=== PATIENT | male | born 1950 | race Caucasian/White ===

== ENCOUNTER 2024-09-01 17:46 | Inpatient (IN) | payer MEDICARE, MEDICAID, SELFPAY ==
[2024-09-01 17:50] VITALS: PULSE 102; RESP 20; O2SAT 96; BMI 13.5
[2024-09-01 17:55] VITALS: BP 100/64; PULSE 100; RESP 20; TEMP 37.3; O2SAT 98
--- NOTE | 2024-09-01 19:32 | EKG_ITS ---
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
--- NOTE | 2024-09-01 19:32 | XR_ITS ---
Examination: CT brain head without contrast. 2-D sagittal coronal reconstructions Date and time of exam:September 01 2024 at 07 hours Indications: Patient fell with injury to head, head pain CTDI: vol (mGy):51 DLP: (mGycm):1060 Technique: Multiple CT axial sections of the brain have been obtained, 5 mm slice thickness. Contrast has not been administered. 2-D sagittal, coronal reconstructions have been obtained Low dose protocols were performed. One or more of the following dose reduction techniques were used; automated exposure control, adjustment of the mA and/or KV according to patient size, use of iterative reconstruction technique. Findings: No significant ventricular enlargement. Intra-axial or extra-axial hemorrhage density is not seen. No mass effect or midline shift Basal cisterns are not remarkable. Fourth ventricle is midline. Cranial vault intact. Impression: Negative for acute hemorrhage, mass effect or midline shift
--- NOTE | 2024-09-01 19:32 | XR_ITS ---
Examination: AP chest single view Technique one AP portable semiupright chest single view Exam date and time: September 01, 2024 at 1942 hrs. Comparison 05/15/2022 Indications: Sepsis protocol. Findings: Diffuse significant right lung pneumonia Normal heart size Left lung clear Impression: Diffuse significant right lung pneumonia
--- NOTE | 2024-09-01 19:33 | EDNOTE_ITS ---
ED General RME/HPI General Chief complaint: Altered Mental Status Stated complaint: AMS Time Seen by Provider: 09/01/24 19:22 Arrival date/time: 09/01/24 17:46 RME / HPI RME / HPI narrative: 73-year-old male patient with significant history of lifelong developmental delay, chronic debility, wheelchair-bound, was brought in by EMS for evaluation regarding worsening mentation. According to the cousin who is the caregiver of the patient, patient was noted to be refusing to eat even swallow water since yesterday. Patient was also noted to be less responsive and active. Not been ambulatory for more than several months. And now less verbal also. Patient is alert, look at you, and blink when you asked. Related Data Home Medications ?Medication ?Instructions ?Recorded ?Confirmed clonazepam 2 mg tablet 2 mg PO BID PRN FOR SEVERE A NXIETY 07/18/21 01/13/22 levothyroxine 25 mcg tablet 25 mcg PO DAILY 07/18/21 0 01/13/22 risperidone 3 mg tablet 6 mg PO HS 07/18/21 01/13/22 Previous Rx's ?Medication ?Instructions ?Recorded levetiracetam 500 mg tablet 500 mg PO BID #60 tabs (Roweepra) Allergies Allergy/AdvReac Type Severity Reaction Status Date / Time lithium Allergy Verified 01/13/22 19:26 Review of Systems Review of Systems Narrative Review of Systems: Review of system reviewed and within normal limits except mentioned in HPI ED Exam Narrative Physical exam: VITAL SIGNS: Reviewed. GENERAL APPEARANCE: Alert with eyes open, nonverbal, does not follows commands, no acute distress, cachectic, almost skin and bone HEAD AND FACE: Non-traumatic. ENT: PERRL, pink conjunctivitis, eyelid no trauma, Mucous membrane moist. NECK: Supple, nontender, no nuchal rigidity. CHEST: No tenderness, no crepitus, no paradoxical movement, no retractions. LUNGS: Clear, well ventilated, symmetric, no rales, no wheezing, no ronchi, no stridor, good breath sounds bilaterally. HEART: Regular rate, regular rhythm, no murmur, no gallops. ABDOMEN: Soft, positive bowel sounds, nondistended, no guarding, nontender, no rebound, no masses, RECTAL: Deferred. GENITAL: Deferred. NEUROLOGICAL: Gross motor function intact sensory function intact, Appropriate for age. MUSCULOSKELETAL: low back nontender, limited range of motion. EXTREMITIES: Nontender, limited range of motion. SKIN: Color pink, dry, no rash, no lacerations, no abrasions, no contusions. LYMPHATICS: Deferred. Course Quality Measures none Orders Category Date Time Status Admit to Inpatient Status Routine Admission 09/01/24 22:50 Active Patient Condition Routine Admission 09/01/24 22:50 Ordered Bedside Blood Glucose Q6HR Care 09/01/24 22:54 Active Converter Operator STAT Care 09/01/24 19:32 Active Continuous Pulse Oximetry STAT Care 09/01/24 19:32 Completed EKG (ED ONLY) *Do not use* NOW Care 09/01/24 19:32 Completed Jin [Urinary Catheter] QS Care 09/01/24 21:04 Active Jin to [place] Routine Care 09/01/24 19:33 Ordered In and Out Catheter X1PRN Care 09/01/24 19:32 Active Insert IV NOW Care 09/01/24 19:32 Active NPO NOW Care 09/01/24 22:51 Active NPO STAT Care 09/01/24 19:32 Active Notify provider NEEDED Care 09/01/24 22:50 Active Nurse Swallow Screen X1 Care 09/01/24 22:48 Active Strict Intake and Output Routine Care 09/01/24 19:32 Ordered Swallow Evaluation NEEDED Care 09/01/24 22:48 Active Wound Care NOW Care 09/01/24 22:48 Active Referral Registered Dietitian Routine Cons 09/01/24 22:53 Active Referral Speech Therapy Routine Cons 09/01/24 22:53 Active Diet NPO (NOW) Diet 09/01/24 22:[address] abdomen pelvis wo con Routine Exams 09/01/24 22:[address] head/brain wo con Stat Exams 09/01/24 19:32 Completed EKG (ED Only) Stat Exams 09/01/24 19:32 Draft XR chest 1V SEPSIS PROTOCOL Stat Exams 09/01/24 19:32 Completed A1C [Glycohemoglobin w (eAG)] AM DRAW Lab 09/02/24 05:00 Ordered B-Type Natriuretic Peptide Stat Lab 09/01/24 20:33 Completed Blood Culture (Lab) Stat Lab 09/01/24 19:52 Received CBC AM DRAW Lab 09/02/24 05:00 Ordered CBC AM DRAW Lab 09/03/24 05:00 Ordered CBC AM DRAW Lab 09/04/24 05:00 Ordered CBC AM DRAW Lab 09/05/24 05:00 Ordered CBC Stat Lab 09/01/24 20:33 Completed CMP [Comprehensive Metabolic Panel] AM DRAW Lab 09/02/24 05:00 Ordered CMP [Comprehensive Metabolic Panel] AM DRAW Lab 09/03/24 05:00 Ordered CMP [Comprehensive Metabolic Panel] AM DRAW Lab 09/04/24 05:00 Ordered CMP [Comprehensive Metabolic Panel] AM DRAW Lab 09/05/24 05:00 Ordered CRP [C-Reactive Protein] AM DRAW Lab 09/02/24 05:00 Ordered Comprehensive Metabolic Panel Stat Lab 09/01/24 20:33 Completed ESR [Sed Rate (ESR)] AM DRAW Lab 09/02/24 05:00 Ordered Free T4 (Free Thyroxine) AM DRAW Lab 09/02/24 05:00 Ordered LDH (Lactate Dehydrogenase) Stat Lab 09/01/24 20:33 Completed Lactate (Lactic Acid) Stat Lab 09/01/24 19:52 Completed Lipase Stat Lab 09/01/24 20:33 Completed [place] Stat Lab 09/01/24 22:54 Ordered MRSA Nasal Screen Stat Lab 09/01/24 22:50 Ordered Magnesium AM DRAW Lab 09/02/24 05:00 Ordered Magnesium AM DRAW Lab 09/03/24 05:00 Ordered Magnesium AM DRAW Lab 09/04/24 05:00 Ordered Magnesium AM DRAW Lab 09/05/24 05:00 Ordered Magnesium Stat Lab 09/01/24 20:33 Completed Partial Thromboplastin Time Stat Lab 09/01/24 19:52 Completed Phosphorous AM DRAW Lab 09/02/24 05:00 Ordered Phosphorous AM DRAW Lab 09/03/24 05:00 Ordered Phosphorous AM DRAW Lab 09/04/24 05:00 Ordered Phosphorous AM DRAW Lab 09/05/24 05:00 Ordered Phosphorous Stat Lab 09/01/24 20:33 Completed Procalcitonin Stat Lab 09/01/24 20:33 Completed Prothrombin Time with INR Stat Lab 09/01/24 19:52 Completed Sodium Q4H Lab 09/01/24 22:50 Ordered Sodium Q4H Lab 09/02/24 02:50 Ordered Sodium Q4H Lab 09/02/24 06:50 Ordered Sodium Q4H Lab 09/02/24 10:50 Ordered Sodium Q4H Lab 09/02/24 14:50 Ordered Sputum Culture and Gram Stain Routine Lab 09/01/24 22:49 Ordered TSH [Thyroid Stimulating Hormone] AM DRAW Lab 09/02/24 05:00 Ordered Troponin I Stat Lab 09/01/24 20:33 Completed Urinalysis Stat Lab 09/01/24 21:14 Completed Urine Culture Stat Lab 09/01/24 21:14 Received Acetaminophen Tab [Tylenol Tab] Med 09/01/24 22:48 Active 650 mg PO Q6H PRN Acetaminophen Tab [Tylenol Tab] Med 09/01/24 22:48 Active 650 mg PO Q6H PRN Albuterol/Ipratr Rt Elvie [Duoneb Rt Elvie] Med 09/02/24 01:00 Ordered 3 ml INH Q6HRRT Dextrose 5%-Water [D5w] 500 ml Med 09/01/24 22:00 Discontinued IV 125 mls/hr Dextrose 5%-Water [D5w] 500 ml Med 09/01/24 23:01 Ordered IV 125 mls/hr Doxycycline Inj [Vibramycin Inj] 100 mg Med 09/01/24 23:00 Ordered Sodium Chloride 0.9% (P) [NS 0.9% mini bag] 100 ml IV BID Doxycycline Inj [Vibramycin Inj] 100 mg Med 09/01/24 21:47 Discontinued Sodium Chloride 0.9% (P) [NS 0.9% mini bag] 100 ml IV X1 Levothyroxine Inj [Synthroid Inj] Med 09/02/24 09:00 Ordered 20 mcg IV QDAY Pantoprazole Inj [Protonix Inj] Med 09/02/24 09:00 Ordered 40 mg IVP QDAY Piper/Tazo 3.375 gm [Zosyn] Med 09/01/24 21:46 Discontinued 3.375 gm in 50 ml IV X1 Piper/Tazo Inj [Zosyn Inj] 4.5 gm Med 09/02/24 00:00 Ordered Sodium Chloride 0.9% (P) [NS 0.9% mini bag] 100 ml IV Q6HR Sodium Chloride 0.9% 1000 ml [Ns] 1,000 ml Med 09/01/24 19:33 Discontinued IV 999 mls/hr Sodium Chloride Rt Elvie 10% [NS Rt Elvie 10%] Med 09/01/24 22:48 Discontinued 5 ml INH X1 ONE levETIRAcetam [Keppra] Med 09/01/24 23:15 Ordered 500 mg PO BID risperiDONE [RisperDAL] Med 09/01/24 22:59 Discontinued 12 mg PO X1 ONE Code Status Routine Oth 09/01/24 22:48 Ordered Oxygen Delivery NOW RT 09/01/24 19:32 Active Sputum Induction PRN RT 09/01/24 23:00 Ordered Vital Signs Vital signs: Vital Signs Temperature 99.2 F 09/01/24 17:55 Pulse Rate 100 09/01/24 17:55 Respiratory Rate 20 09/01/24 17:55 Blood Pressure 100/64 09/01/24 17:55 Pulse Oximetry (%) 98 09/01/24 17:55 Oxygen Delivery Method Nasal Cannula 09/01/24 17:55 Oxygen Flow Rate 3 09/01/24 17:55 [facility] Patient data External records reviewed:: None Clinical information provided by:: none Social determinants that could affect healthcare access:: none Patient has the following chronic illnesses:: Developmental delay, history of seizure, anxiety How is presenting disease/condition affected by chronic disease/condition?: e xacerbated by Evaluation data The following diagnostics were reviewed and interpreted by me:: lab results, radiology exam(s) and EKG tracing(s) Lab and/or radiology exams considered but not ordered:: None Interpretation Summary: EKG sinus rhythm, ventricular rate of 83 bpm, AK interval 103 MS, no ST segment elevation depression noted. The rest of the results see [facility] Medications Medications considered but not ordered:: None Medication administrations:: Medication Administration History Acetaminophen (Acetaminophen 325 Mg Tablet) 650 mg PO Q6H PRN PRN Reason: PAIN SCALE 1-3 (mild Stop: 10/01/24 22:47 Acetaminophen (Acetaminophen 325 Mg Tablet) 650 mg PO Q6H PRN PRN Reason: Fever >100 Stop: 10/01/24 22:47 Albuterol/Ipratropium (Albuterol/Ipratropium (Duoneb) Rt Elvie 3 Ml Nebu) 3 ml INH Q6HRRT BETY Stop: 10/02/24 00:59 Dextrose (D5w) 500 mls @ 125 mls/hr IV .Q4H BETY Stop: 09/02/24 10:47 Piperacillin Sod/Tazobactam (Sod 4.5 gm/ Sodium Chloride) 100 mls @ 200 mls/hr IV Q6HR [facility] Stop: 09/09/24 00:00 Doxycycline Hyclate 100 mg/ (Sodium Chloride) 100 mls @ 100 mls/hr IV BID [facility] Stop: 09/08/24 22:59 Levetiracetam (Levetiracetam 250 Mg Tablet) 500 mg PO BID [facility] Stop: 10/01/24 23:14 Levothyroxine Sodium (Levothyroxine Inj 100 Mcg Vial) 20 mcg IV QDAY BETY Stop: 10/02/24 08:59 Pantoprazole Sodium (Pantoprazole Inj 40 Mg Vial) 40 mg IVP QDAY [facility] Stop: 10/02/24 08:59 Discontinued Medications Sodium Chloride (Ns) 1,000 mls @ 999 mls/hr IV .Q1H1M ONE Stop: 09/01/24 20:33 Last Infusion: 09/01/24 22:49 Dose: Infused Documented By: Admin: 09/01/24 21:17 Dose: 999 mls/hr Documented By: INNA Piperacillin/Tazobactam/Dextrose (Zosyn) 3.375 gm in 50 mls @ 100 mls/hr IV X1 ONE Stop: 09/01/24 22:15 Last Admin: 09/01/24 22:54 Dose: 100 mls/hr Documented By: INNA Doxycycline Hyclate 100 mg/ (Sodium Chloride) 100 mls @ 100 mls/hr IV X1 ONE Stop: 09/01/24 22:46 Dextrose (D5w) 500 mls @ 125 mls/hr IV .Q4H BETY Stop: 10/01/24 21:59 Last Admin: 09/01/24 22:54 Dose: 125 mls/hr Documented By: INNA Risperidone (Risperidone 1 Mg Tablet) 12 mg PO X1 ONE Stop: 09/01/24 23:00 Sodium Chloride (Sodium Chloride Rt 10% 15 Ml Nebu) 5 ml INH X1 ONE Stop: 09/01/24 22:49 IV Zosyn and IV doxycycline, IV fluids for hydration, and D5 water Consultations Consultation(s) initiated? (list below): No Diagnosis Differential Diagnosis ED Complaint MDM: Aspiration pneumonia, dehydration, altered mental status, hypernatremia Most likely diagnosis given after review of the tests above:: Aspiration pneumonia, hypernatremia Admission Indicated Admission indicated?: indicated Explain why admission is indicated or not indicated:: Patient is to be admitted for further management. Admission Request Was there a request for admission?: Yes Admission Attestation Admission request attestation: Discussed case with [] from Hospitalist service regarding admission. Discussed patients ED course, exam findings, labs, and radiology results. The Hospitalist [agrees,declines] to accept the patient for admission. Disposition Plan Disposition Plan: Admit Medical Decision Making MDM Narrative MDM Narrative: 73-year-old male patient with significant history of lifelong developmental delay, chronic debility, wheelchair-bound, was brought in by EMS for evaluation regarding worsening mentation. According to the cousin who is the caregiver of the patient, patient was noted to be refusing to eat even swallow water since yesterday. Patient was also noted to be less responsive and active. Not been ambulatory for more than several months. And now less verbal also. Patient is alert, look at you, and blink when you asked. Workup is significant for leukocytosis of 21.5 sodium 163, chloride 126 carbon dioxide 19.5 anion gap of 18 BUN of 92 creatinine of 2.3 serum osmolality was noted to be 349 phosphorus 6.2 magnesium 2.8 Pro-Kip is 19.5. Chest x-ray showed pneumonia. CT scan of the head came back unremarkable. Patient initially received IV fluids for hydration IV NS, and IV fluids was changed to D5 water. Patient was given IV doxycycline and IV Zosyn. For possible aspiration pneumonia. Case discussed with hospitalist who admitted the patient Differential Diagnosis Differential Diagnosis: Aspiration pneumonia, dehydration, altered mental status, hypernatremia Lab Data 09/01/24 20:33 09/01/24 20:33 Labs: Lab Results 09/01/24 09/01/24 09/01/24 Range/Units 19:52 20:33 21:14 WBC 21.5 H (3.8-10.6) Thou/mm3 RBC 3.23 L (4.50-5.90) Miln/mm3 Hgb 9.2 L (13.5-16.0) g/dL Hct 30.1 L (41.0-53.0) % MCV 93 (80-100) fL MCH 28.5 (25.0-35.0) pg MCHC 30.6 L (31.0-37.0) g/dl RDW Std Deviation 64.2 H (35.1-43.9) fL Plt Count 350 (140-440) Thou/mm3 Neut % (Auto) 94 H (37-80) % Lymph % (Auto) 4 L (10-50) % [place] % (Auto) 1 (0-12) % Eos % (Auto) 0 (0-10) % Baso % (Auto) 1 (0-2.5) % Neut # (Auto) 20.3 H (1.8-7.7) Thou/mm3 Lymph # (Auto) 0.8 L (1.0-4.8) Thou/mm3 [place] # (Auto) 0.2 (0.0-0.8) Thou/mm3 Eos # (Auto) 0.0 (0.0-0.5) Thou/mm3 Baso # (Auto) 0.1 (0.0-0.2) Thou/mm3 Immature Gran # (Auto) 0.10 H (0.00-0.00) Thou/mm3 Absolute Nucleated RBC 0.00 (0.00-0.00) Thou/mm3 Immature Gran % 1 H (0-0) % Nucleated RBC % 0 (0) /100 WBC PT 11.4 (9.0-12.2) Seconds INR 1.0 (0.9-1.3) APTT 24.6 (22.0-36.0) Seconds Sodium 163 H* (136-145) mMol/L Potassium 4.3 (3.4-5.1) mMol/L Chloride 126 H* (98-107) mMol/L Carbon Dioxide 19.5 L (20.0-31.0) mMol/L Anion Gap 18 H (7-16) BUN 92 H (9-23) mg/dL Creatinine 2.3 H (0.6-1.3) mg/dL Estim Creat Clear Calc 15.4 L (>60) mL/min eGFR 29 L (60 - ) See Note BUN/Creatinine Ratio 40 H (12-20) Ratio Glucose 79 (74-106) mg/dL Calculated Osmolality 349 H (275-295) Lactic Acid 1.5 (0.4-2.0) mMol/L Calcium 8.9 (8.3-10.6) mg/dL Corrected Calcium 9.1 (8.5-10.1) mg/dL Phosphorus 6.5 H (2.4-5.1) mg/dL Magnesium 2.8 H (1.6-2.6) mg/dL Total Bilirubin 0.5 (0.3-1.2) mg/dL AST 20 (0-34) U/L ALT 17 (10-49) U/L Alkaline Phosphatase 95 (46-116) U/L Lactate Dehydrogenase 266 H (120-246) U/L Troponin I 0.029 (0.0-0.045) ng/mL B-Natriuretic Peptide 41 (0-100) pg/mL Total Protein 6.8 (5.7-8.2) gm/dL Albumin 3.7 (3.4-4.8) gm/dL Globulin 3.1 (2.3-3.5) gm/dL Albumin/Globulin Ratio 1.2 (1.2-2.2) Lipase 20 (12-53) U/L Procalcitonin 19.50 H (0.0-0.49) ng/ml Ur Collection Type Clean Catch Urine Color Yellow (Lt Yel-Yel) Urine Clarity Turbid A (Clear/Hazy) Urine pH 6.0 (5.0-7.0) Ur Specific [place] 1.023 (1.001-1.035) Urine Protein 1+ A (Neg - Trace) Urine Glucose (UA) Negative (Negative) Urine Ketones Trace (Negative) Urine Blood Trace (Negative) Urine Nitrite Negative (Negative) Urine Bilirubin Negative (Negative) Urine Urobilinogen (Auto) Negative (0.0-1.0) mg/dL Ur Leukocyte Esterase Negative (Negative) Urine RBC 2 (0-3) /hpf Urine WBC 1 (0-5) /hpf Ur Squamous Epith Cells 2 (0-5) /hpf Urine Bacteria None (None) Hyaline Casts < 1 (0-1) /hpf Discharge Plan Plan Patient Disposition: Admit Acute Care w/in Hospital Prescriptions/Referrals Prescriptions/Med Rec: No Action risperidone 3 mg Tablet 6 mg PO HS clonazepam 2 mg Tablet 2 mg PO BID PRN (Reason: FOR SEVERE ANXIETY) levothyroxine 25 mcg tablet 25 mcg PO DAILY Rx Instructions: TAKE ON AN EMPTY STOMACH levetiracetam [Roweepra] 500 mg tablet 500 mg PO BID Qty: 60 0RF Problem List Clinical Impression: Acute hypernatremia, Pneumonia, Adult failure to thrive Patient/Caregiver Discharge Instructions Print Language: Syriac Stand Alone Forms: Yessenia Award Info., Patient Portal Info Letter
[2024-09-01 20:16] LABS: Lactate (Lactic Acid) 1.5 mMol/L (0.4-2.0)
[2024-09-01 20:34] LABS: Partial Thromboplastin Time 24.6 Seconds (22.0-36.0); Prothrombin Time 11.4 Seconds (9.0-12.2)
[2024-09-01 20:40] VITALS: BP 102/61; PULSE 86; PULSE 87; PULSE 89; RESP 16; RESP 95; TEMP 37.6; O2SAT 95
[2024-09-01 20:43] LABS: Basophils # (Auto) 0.1 Thou/mm3 (0.0-0.2); Basophils % (Auto) 1 % (0-2.5); Eosinophils % (Auto) 0 % (0-10); Hematocrit 30.1 % (41.0-53.0); Hemoglobin 9.2 g/dL (13.5-16.0); Immature Granulocytes % (Auto) 1 % (0-0); Lymphocytes # (Auto) 0.8 Thou/mm3 (1.0-4.8); Lymphocytes % (Auto) 4 % (10-50); Mean Corpuscular HGB Conc 30.6 g/dl (31.0-37.0); Mean Corpuscular Hemoglobin 28.5 pg (25.0-35.0); Mean Corpuscular Volume 93 fL (80-100); Monocytes # (Auto) 0.2 Thou/mm3 (0.0-0.8); Monocytes % (Auto) 1 % (0-12); Neutrophils # (Auto) 20.3 Thou/mm3 (1.8-7.7); Neutrophils % (Auto) 94 % (37-80); Nucleated Red Blood Cell % 0 /100 WBC (0); Platelet Count 350 Thou/mm3 (140-440); RDW Standard Deviation 64.2 fL (35.1-43.9); Red Blood Count 3.23 Miln/mm3 (4.50-5.90); White Blood Count 21.5 Thou/mm3 (3.8-10.6)
[2024-09-01 21:17] LABS: Collection Type, Urine Clean Catch
[2024-09-01] MEDS: SODIUM CHLORIDE 0.9% 1000 ML 1,000 ML 999 ML IV (21:17)
[2024-09-01 21:34] LABS: Alanine Aminotransferase 17 U/L (10-49); Albumin, Serum 3.7 gm/dL (3.4-4.8); Albumin/Globulin Ratio 1.2 (1.2-2.2); Alkaline Phosphatase 95 U/L (46-116); Anion Gap 18 (7-16); Aspartate Amino Transferase 20 U/L (0-34); BUN/Creatinine Ratio 40 Ratio (12-20); Bilirubin,Total 0.5 mg/dL (0.3-1.2); Blood Urea Nitrogen 92 mg/dL (9-23); Calcium 8.9 mg/dL (8.3-10.6); Calcium (Corrected) 9.1 mg/dL (8.5-10.1); Carbon Dioxide 19.5 mMol/L (20.0-31.0); Chloride 126 mMol/L (98-107); Creatinine (Component) 2.3 mg/dL (0.6-1.3); Estimated Creatinine Clearance 15.4 mL/min (>60); Globulin 3.1 gm/dL (2.3-3.5); Glucose 79 mg/dL (74-106); LDH (Lactate Dehydrogenase) 266 U/L (120-246); Lipase 20 U/L (12-53); Magnesium 2.8 mg/dL (1.6-2.6); Osmolality,Calculated 349 (275-295); Phosphorous 6.5 mg/dL (2.4-5.1); Potassium 4.3 mMol/L (3.4-5.1); Total Protein 6.8 gm/dL (5.7-8.2); Troponin I 0.029 ng/mL (0.0-0.045); eGFR 29 See Note
[2024-09-01 21:40] LABS: Sodium 163 mMol/L (136-145)
[2024-09-01 21:40] LABS: Bilirubin,Urine Negative (Negative); Blood,Urine Trace (Negative); Clarity,Urine Turbid (Clear/Hazy); Color,Urine Yellow (Lt Yel-Yel); Glucose, Urine Negative (Negative); Hyaline Casts,Urine < 1 /hpf (0-1); Ketones,Urine Trace (Negative); Leukocyte Esterase,Urine Negative (Negative); Nitrite,Urine Negative (Negative); Protein,Urine 1+ (Neg - Trace); RBC,Urine 2 /hpf (0-3); Specific Gravity,Urine 1.023 (1.001-1.035); Squamous Epithelial Cell,Urine 2 /hpf (0-5); Urobilinogen,Urine Negative mg/dL (0.0-1.0); WBC,Urine 1 /hpf (0-5)
[2024-09-01 21:43] LABS: B-Type Natriuretic Peptide 41 pg/mL (0-100)
[2024-09-01 22:17] VITALS: BP 95/54; PULSE 78; RESP 17; O2SAT 98
[2024-09-01 22:29] VITALS: TEMP 37.2
[2024-09-01] MEDS: DEXTROSE 5%-WATER 500 ML 125 ML IV ×2 (22:54→23:55)
[2024-09-01] MEDS: PIPER/TAZO 3.375 GM 3.375 GM/50 ML BAG IV (22:54)
--- NOTE | 2024-09-01 23:09 | ESHP_ITS ---
Documentation for date of: 09/01/24 [facility] History of Present Illness History of present illness: This is a 73-year-old male with PMHx of developmental delay, anxiety/psych disorder, hypothyroidism, seizure disorder, GERD, chronic anemia, chronic periodontitis presenting to the ED with altered mental status. History obtained from his cousin and his or the sole caregivers. Reportedly patient was at his normal state of health until 3 days ago when he began deteriorating, nonverbal, generally weak, bedridden, not following commands, and refusing oral intake including fluids. At baseline, he ambulates with assistance, talkative, would have normal conversation. He had an unwitnessed fall 3 days ago as he was walking in the hallway during the day. His cousin was in the other room, she rushed to the hallway when she heard him fall. Reportedly he hit his head and sustained a minor bruise to his left forehead. He has been seen here in 2021 for similar symptoms. At that time treated for dehydration and malnourishment. Caregiver states they have been trying to get his weight up, encouraging oral intake, however it appears that he lost 30 kg since 2021. 3-4 days ago, caregiver tried giving BOOST protein shake but it appears that he regurgitated most of it, possibly aspirated as he was coughing up brown mucus. Additionally, he has a new deep ulcer in his back that family has been trying to take care of. He has been seen by his PCP but, per caregiver, no recommendations were given. Reportedly ulcer has been getting larger, deeper, more purulent and foul-smelling. He had subjective fever over the last few days, temperature was not recorded. No reported history of headaches, focal neurological deficits, loss of consciousness, chills, night sweats, chest pain, shortness of breath, cough, abdominal pain, N/V/D, abnormal bleed or urinary symptoms including dysuria or frequency/urgency. Caregivers is in charge of his medications which patient is taking regularly. Other medical problems include chronic constipation, he has BMs every third day, last BM was 3 days ago and was normal. He has a history of seizure disorder for which he takes LEVETIRACETAM. He is no longer taking LITHIUM since he was discharged from the hospital in 2021. Last seizure activity occurred 2-3 years ago. ED COURSE: * On exam, frail/cachectic elderly male, alert, does not follow command, nonverbal, no apparent distress, on 3L NC satting well, has multiple bruises on the forehead, chronic senile purpura along with bruising of upper and lower extremities, and deep/purulent over left iliac crest. * Weight 38.1 kg, BMI 13.6. * Afebrile, BP 100/64, HR 100, RR 20, satting well on 3 L NC. * WBC 21.5, Hgb 9.2 around baseline. Normal coag studies. * Sodium 163, chloride 126, osmolality 349, CO2 19.5, anion gap 18, BUN 92, CR 2.3, GFR 29, phosphorus 6.5, magnesium 2.8, LDH 266, Pro-Calc 19.5. * Normal lactic acid, BMP, troponin. EKG sinus rhythm with short IL interval. * UA turbid but negative for UTI. * Head CT negative for acute pathology. * CXR showed diffuse significant right lung pneumonia. Admitted to telemetry for further management. Exam Vital Signs Temp Pulse Resp BP Pulse Ox O2 Del Method O2 Flow Rate 98.9 F 78 17 95/54 L 98 Room Air 3 09/01/24 22:29 09/01/24 22:17 09/01/24 22:17 09/01/24 22:17 09/01/24 22:17 09/01/24 22:17 09/01/24 17:55 Narrative Exam GENERAL * Frail, cachectic, elderly male, alert, nonverbal, not following command. HEENT * NCAT.?RITA. Dry oral mucosa. Patent nares. Chronic periodontitis. NECK * Supple, nontender, no thyromegaly, no meningismus, no JVD, no step offs CHEST * RRR, no m/g/r * Coarse breath sound bilaterally, wheezing bilaterally. No Rales * Symmetrical chest rise. No intercostal subcostal retraction * Atraumatic, nontender, no crepitus, symmetrical expansion. ABDOMEN * Soft, flat, nontender. No guarding/rebound tenderness/masses. * Bowel sounds presents EXTREMITIES * Nontender, no cyanosis, no edema * No edema/cyanosis.? SKIN * Warm and dry, no jaundice. * Minor bruise over left forehead. Multiple bruises long with senile purpura worsening upper extremities bilaterally. * Deep purulent, foul smelling ulcer of left iliac crest. NEUROMUSCULAR (limited exam) * No lumbar or midline, no CVA, no paraspinal muscle spasm or tenderness. PSYCHIATRY * Unable to assess. No apparent distress. Results: Labs 09/02/24 05:16 09/02/24 03:01 Labs: Short CBC 09/01/24 Range/Units 20:33 WBC 21.5 H (3.8-10.6) Thou/mm3 Hgb 9.2 L (13.5-16.0) g/dL Hct 30.1 L (41.0-53.0) % Plt Count 350 (140-440) Thou/mm3 BMP 09/01/24 20:33 Sodium 163 H* Potassium 4.3 Chloride 126 H* Carbon Dioxide 19.5 L BUN 92 H Creatinine 2.3 H Glucose 79 Calcium 8.9 Cardiac Enzymes 09/01/24 Range/Units 20:33 Troponin I 0.029 (0.0-0.045) ng/mL Liver Function 09/01/24 Range/Units 20:33 Total Bilirubin 0.5 (0.3-1.2) mg/dL AST 20 (0-34) U/L ALT 17 (10-49) U/L Alkaline Phosphatase 95 (46-116) U/L Albumin 3.7 (3.4-4.8) gm/dL Urine 09/01/24 Range/Units 21:14 Urine Color Yellow (Lt Yel-Yel) Urine Clarity Turbid A (Clear/Hazy) Urine pH 6.0 (5.0-7.0) Ur Specific [place] 1.023 (1.001-1.035) Urine Protein 1+ A (Neg - Trace) Urine Glucose (UA) Negative (Negative) Quality Measures Quality Measures none Advance care planning discussed with:: other Medications Home Medications and Allergies Home Medications ?Medication ?Instructions ?Recorded ?Confirmed ?Type clonazepam 2 mg tablet 2 mg PO BID PRN FOR SEVERE A NXIETY 07/18/21 01/13/22 History levothyroxine 25 mcg tablet 25 mcg PO DAILY 07/18/21 0 01/13/22 History risperidone 3 mg tablet 6 mg PO HS 07/18/21 01/13/22 History Allergies Allergy/AdvReac Type Severity Reaction Status Date / Time lithium Allergy Verified 01/13/22 19:26 Visit Medications Acetaminophen (Acetaminophen 325 Mg Tablet) 650 mg PO Q6H PRN PRN Reason: PAIN SCALE 1-3 (mild Stop: 10/01/24 22:47 Acetaminophen (Acetaminophen 325 Mg Tablet) 650 mg PO Q6H PRN PRN Reason: Fever >100 Stop: 10/01/24 22:47 Albuterol/Ipratropium (Albuterol/Ipratropium (Duoneb) Rt Elvie 3 Ml Nebu) 3 ml INH Q6HRRT BETY Stop: 10/02/24 00:59 Dextrose (D5w) 500 mls @ 125 mls/hr IV .Q4H BETY Stop: 09/02/24 10:47 Piperacillin Sod/Tazobactam (Sod 4.5 gm/ Sodium Chloride) 100 mls @ 200 mls/hr IV Q6HR BETY Stop: 09/09/24 00:00 Doxycycline Hyclate 100 mg/ (Sodium Chloride) 100 mls @ 100 mls/hr IV BID BETY Stop: 09/08/24 22:59 Levetiracetam (Levetiracetam 250 Mg Tablet) 500 mg PO BID BETY Stop: 10/01/24 23:14 Levothyroxine Sodium (Levothyroxine Inj 100 Mcg Vial) 20 mcg IV QDAY BETY Stop: 10/02/24 08:59 Pantoprazole Sodium (Pantoprazole Inj 40 Mg Vial) 40 mg IVP QDAY [facility] Stop: 10/02/24 08:59 Discontinued Medications Sodium Chloride (Ns) 1,000 mls @ 999 mls/hr IV .Q1H1M ONE Stop: 09/01/24 20:33 Last Infusion: 09/01/24 22:49 Dose: Infused Piperacillin/Tazobactam/Dextrose (Zosyn) 3.375 gm in 50 mls @ 100 mls/hr IV X1 ONE Stop: 09/01/24 22:15 Last Admin: 09/01/24 22:54 Dose: 100 mls/hr Doxycycline Hyclate 100 mg/ (Sodium Chloride) 100 mls @ 100 mls/hr IV X1 ONE Stop: 09/01/24 22:46 Dextrose (D5w) 500 mls @ 125 mls/hr IV .Q4H BETY Stop: 10/01/24 21:59 Last Admin: 09/01/24 22:54 Dose: 125 mls/hr Risperidone (Risperidone 1 Mg Tablet) 12 mg PO X1 ONE Stop: 09/01/24 23:00 Sodium Chloride (Sodium Chloride Rt 10% 15 Ml Nebu) 5 ml INH X1 ONE Stop: 09/01/24 22:49 Assessment & Plan Plan In summary: 73-year-old male with PMHx of developmental delay, anxiety/psych disorder, hypothyroidism, seizure disorder, GERD, chronic anemia, chronic periodontitis. Admitted for acute encephalopathy likely infectious versus malnutrition/dehydration. Acute encephalopathy DDx: Infectious and/or metabolic Presenting with 3 days of altered mental status and deterioration from baseline. Apparently at baseline he ambulates with this, has normal conversations. Currently not following command, nonverbal, bedridden, refusing oral intake. No neurological deficit. Reported fall 3 days ago, head CT was negative. Has left forehead bruises, otherwise NCAT. Low suspicion for drug overdose. Caregiver manages his meds which she gets as scheduled. GLUCOSE 79. Will follow-up with thyroid function. ? Treating underlying cause as below ? Avoid narcotics Hypernatremia Elevated chloride, phosphorus, magnesium Severe dehydration Sodium 163 > 165, chloride 126, phosphorus 6.5, magnesium 2.8, serum osmolality 349 Electrolyte abnormalities most likely dehydrational. Has been refusing oral intake for 3+ days. However clinical picture and lab findings are more consistent with chronic dehydration/malnutrition. Low suspicion for diabetes insipidus, no polydipsia/polyuria, no longer on LITHIUM. Calculated water deficit 3.4 L. He was given 1 L NS in ED. Per guidelines, goal correction is 3.4 L (total deficit) in 24 hours. ? Avoid overcorrection of 10 mEq in 24 hours ? Started D5W at 150 cc/HR, total 4 bags, will likely need more based on sodium checks. ? Sodium checks Q4H ? Sepsis Aspiration pneumonia Stage IV pelvic ulcer Met 3/4 SIRS with tachycardia, tachypnea and leukocytosis with EOD i.e. NEGRITO. Reported history of aspiration 3 days ago. CXR showed extensive right-sided pneumonia. Has chronic purulent left pelvic ulcer, stage IV. Elevated PRO-ANDREW Negative COVID, influenza A/B. ? Continue fluids as above ? Continue ZOSYN (09/02 to present) ? Continue DOXYCYCLINE (09/02 to present) ? Continue DuoNebs q.6h. BETY ? Wound care ? Pending ESR, CRP ? Pending CT abdomen to rule out ulcer sinus fistula ? Pending panculture, MRSA Prerenal NEGRITO Likely in settings of dehydration. CR 2.3, GFR 29, BUN 92. Last labs in 2021 were normal. Anticipate improvement with fluids as above. ? Fluids as above ? Renally dose meds, avoid overdiuresis and NEPHROTOXINS ? Daily CMP Anxiety/psych disorder Congenital developmental delay Seizure disorder Failure to thrive Self-neglect Chronic periodontitis History of the mental delay. Signs or symptoms of self-neglect, failure to thrive, as described in physical exam. No reported seizures, last episode 2 years ago. Medications given daily, as prescribed. No signs of overdose. ? Continue KEPPRA 500 mg BID, high risk for seizure given e-lite status ? Seizure precaution ? Bedside swallow eval ? Formal speech/swallow eval ? Consulted dietitian, at risk for refeeding syndrome. ? Oral care ? Wound care ? Will need physical therapy when able Hypothyroidism Will check thyroid to rule out hypothyroidism as underlying cause of encephalopathy. ? Continue home LEVOTHYROXINE 20 mcg IV ? Pending TSH/free T4 Chronic normocytic anemia Hgb 9.2 around baseline. ? Resume home FERROUS SULFATE when able. ? Consider iron studies. Health maintenance Diet: NPO GI prophylaxis: PROTONIX DVT prophylaxis: LOVENOX Antibiotics: ZOSYN, DOXY CODE STATUS: Full code Disposition: Pending further evaluation. Patient case was discussed with attending, Poli Ko MD. Fadumo Lindo DO PGYI Attending Provider Attestation/Addendum I have examined the patient, reviewed labs and imaging findings, discussed the case with the resident(s), and reviewed entered orders. I agree with the plan of care as outlined in this note, with these additional summaries/recommendations: Patient is a 73-year-old male with a medical history of developmental delay, schizophrenia, anxiety, hypothyroidism, GERD, ?Seizure disorder and anemia of chronic disease who presents to [facility] emergency department on 09/01/2024 with altered mental status and refusing oral intake. In the emergency department patient was found to have severe hypernatremia, NEGRITO, and severe right lung pneumonia. Hospitalist team consulted for continuation of care. #Acute encephalopathy Per edge beader patient talks at baseline and ambulates with assistance. Over the last 3 days patient has become less responsive and now not talking and refusing to eat or drink. Director [employer] reports patient had a fall 3 days ago and did hit his head. DDx: Likely multifactorial secondary to metabolic from severe hypernatremia plus infectious from severe pneumonia plus severe dehydration +/- mood disturbance CT head wo: Negative for acute hemorrhage, mass effect or midline shift. Plan: We will treat underlying infection and hypernatremia and monitor for improvement. Order TSH. Non-Pharm measures to prevent delirium. Resume home antipsychotics. # Hyperosmolar hyperchloremic hypernatremia On admission sodium 163, chloride 126, serum osmolality 349 Likely secondary to dehydration from poor oral intake versus less likely diabetes insipidus (unclear if patient is still taking lithium) Free water deficit is: 3.1 L Trend sodium every 4-6 hours Avoid overcorrection of 10 mEq in 24 hours Plan: Start D5W at 125 cc an hour and we will titrate based off sodium levels #Aspiration Pneumonia #?Dysphagia Per caretakers they have noticed patient has been coughing after eating/drinking Chest x-ray: Diffuse significant right lung pneumonia On admission WBC 21.5 & Pro-Andrew 19.5 Blood cultures ordered. Plan: N.p.o. for now. Bedside swallow evaluation and speech therapy referral. Start IV Zosyn (09/01/24-). follow-up blood cultures. Tylenol as needed for fever. Repeat hematology panel in AM. #Acute kidney injury #Hyperphosphatemia On admission creatinine 2.3 and BUN 92. Previous baseline creatinine in 2021 was 1.1 Most likely secondary to prerenal azotemia in the setting of severe dehydration Avoid nephrotoxic agents and renally dose medications Plan: We will continue with IV fluids. Repeat renal panel in AM. If no improvement we will consult nephrology. No need for phosphate binders at this time. # Pressure ulcer Appears to be infected with discharge Blood cultures taken. Order imaging to rule out osteomyelitis, order ESR/CRP Consult wound care, frequent pressure redistribution Start oral doxycycline (09/01/24) to cover for MRSA and patient receiving Zosyn. #Failure to Thrive #Self-neglect Plan: Consult dietary and referral to high school social science teacher. Consult PT. # Hypothyroidism: Order free T4/TSH. Resume home levothyroxine. # Chronic constipation: Apparently has BM every 3 days. Start laxatives as needed. Dr. Ko
[2024-09-01] MEDS: DOXYCYCLINE INJ 100 MG in SODIUM CHLORIDE 0.9% (P) 100 ML IV (23:22)
[2024-09-02] VITALS (12 sets, daily range): BP systolic 86–106; BP diastolic 43–58; PULSE 68–115; RESP 16–94; TEMP 36.1–37.1; O2SAT 93–100; BMI 12.8
[2024-09-02 00:08] LABS: Sodium 165 mMol/L (136-145)
[2024-09-02 00:38] LABS: Lithium < 0.10 mEq/L (1.00-1.20)
[2024-09-02] MEDS: DEXTROSE 5%-WATER 500 ML 150 ML IV ×3 (02:14→09:04)
[2024-09-02 03:30] LABS: Sodium 161 mMol/L (136-145)
[2024-09-02 06:02] LABS: Basophils # (Auto) 0.1 Thou/mm3 (0.0-0.2); Basophils % (Auto) 0 % (0-2.5); Eosinophils % (Auto) 0 % (0-10); Hematocrit 25.7 % (41.0-53.0); Immature Granulocytes % (Auto) 1 % (0-0); Immature Granulocytes Auto 0.12 Thou/mm3 (0.00-0.00); Lymphocytes % (Auto) 4 % (10-50); Mean Corpuscular HGB Conc 30.7 g/dl (31.0-37.0); Mean Corpuscular Hemoglobin 28.3 pg (25.0-35.0); Mean Corpuscular Volume 92 fL (80-100); Monocytes # (Auto) 0.2 Thou/mm3 (0.0-0.8); Monocytes % (Auto) 1 % (0-12); Neutrophils # (Auto) 21.6 Thou/mm3 (1.8-7.7); Neutrophils % (Auto) 94 % (37-80); Nucleated Red Blood Cell % 0 /100 WBC (0); Platelet Count 293 Thou/mm3 (140-440); RDW Standard Deviation 62.2 fL (35.1-43.9); Red Blood Count 2.79 Miln/mm3 (4.50-5.90); White Blood Count 22.9 Thou/mm3 (3.8-10.6)
[2024-09-02 06:03] LABS: Hemoglobin 7.9 g/dL (13.5-16.0)
[2024-09-02 06:16] LABS: Sed Rate (ESR) 127 mm/hr (0-20)
[2024-09-02 07:14] LABS: Alanine Aminotransferase 13 U/L (10-49); Albumin, Serum 3.3 gm/dL (3.4-4.8); Albumin/Globulin Ratio 1.2 (1.2-2.2); Alkaline Phosphatase 92 U/L (46-116); Anion Gap 15 (7-16); Aspartate Amino Transferase 13 U/L (0-34); BUN/Creatinine Ratio 43 Ratio (12-20); Bilirubin,Total 0.6 mg/dL (0.3-1.2); Blood Urea Nitrogen 86 mg/dL (9-23); C-Reactive Protein 28.5 mg/dL (0.0-0.9); Calcium 8.1 mg/dL (8.3-10.6); Calcium (Corrected) 8.7 mg/dL (8.5-10.1); Carbon Dioxide 19.7 mMol/L (20.0-31.0); Chloride 124 mMol/L (98-107); Estimated Creatinine Clearance 16.9 mL/min (>60); Free T4 (Free Thyroxine) 0.68 ng/dL (0.89-1.76); Globulin 2.7 gm/dL (2.3-3.5); Glucose 168 mg/dL (74-106); Magnesium 2.4 mg/dL (1.6-2.6); Osmolality,Calculated 344 (275-295); Phosphorous 5.4 mg/dL (2.4-5.1); Potassium 3.4 mMol/L (3.4-5.1); Sodium 159 mMol/L (136-145); Thyroid Stimulating Hormone 2.49 uIU/mL (0.55-4.78); eGFR 35 See Note
[2024-09-02] MEDS: ALBUTEROL/IPRATROPIUM (Duoneb) RT SOL 3 ML NEBU INH ×3 (08:05→19:48)
[2024-09-02] MEDS: ENOXAPARIN SOD INJ 30 MG/0.3 ML SYRINGE SC (08:40)
[2024-09-02] MEDS: LEVOTHYROXINE INJ 100 mCg VIAL 20 MCG IV (08:41)
[2024-09-02] MEDS: PANTOPRAZOLE INJ 40 MG VIAL IVP (08:46)
[2024-09-02] MEDS: DOXYCYCLINE INJ 100 MG in SODIUM CHLORIDE 0.9% (P) 100 ML IV ×2 (08:52→20:06)
--- NOTE | 2024-09-02 09:04 | PCS.ST ---
Swallow Evaluation completed. See report for details. Aspiration risk. Recommend dysphagia 1/mildly thick liquids for now. ST will follow.
[2024-09-02] MEDS: PIPER/TAZO 3.375 GM 50 ML IV ×2 (09:09→21:11)
[2024-09-02] MEDS: levETIRAcetam 250 MG TABLET 500 MG PO ×2 (09:10→21:11)
--- NOTE | 2024-09-02 09:49 | PD.RESPRO ---
Documentation for date of: 09/02/24 Subjective Subjective Interval history: Patient was seen at bedside this morning. No overnight events. Patient's sodium has down trended to 159 from 163 on admission. Patient was nonverbal during assessment he cannot follow commands. His pupils also pinpoint, but were reactive to light. Patient looks very cachectic. Given the patient is not able to follow commands and is nonverbal will keep patient n.p.o. for now and will place a NG tube for free water flushes. No other complaints at this time. Will continue to monitor sodium. Exam Vital Signs Temp Pulse Resp BP Pulse Ox O2 Del Method O2 Flow Rate 97.6 F 77 16 90/52 L 99 Room Air 3 09/02/24 07:59 09/02/24 08:08 09/02/24 08:08 09/02/24 07:59 09/02/24 08:08 09/02/24 07:59 09/01/24 17:55 Narrative Exam Physical exam very limited due to patient's medical condition and mental status General: Nonverbal, cachectic, thin, frail elderly Eyes: Pupils constricted, but reactive to light, EOMI. Anicteric Ears: , no visible ear discharge Nose: No nasal discharge. Mouth/Throat: Dry mucous membranes, no redness, no lesions. Neck: Neck supple, no cervical lymphadenopathy. Lungs: Bilateral crackles, No accessory muscle use. Cardio: Normal S1/S2, regular rhythm, no murmurs, no JVD or carotid bruits. Abdomen: Soft, non-tender, no palpable masses, peristalsis present, no guarding or rebound. Extremities: Symmetrical, no significant deformities, no peripheral edema , non-tender, peripheral pulses presents. Skin: No rashes, no lesions, warm to touch. multiple bruises throughout the body including in L side forehead, necrotic sacral ulcer with discharge, covered by dressing. Neuro: Difficult to assess due to patient's current mental status and medical condition, not able to follow commands, nonverbal, able to trace with eyes Objective Labs 09/03/24 07:31 09/03/24 07:31 Labs: Laboratory Results - last 24 hr 09/01/24 09/01/24 09/01/24 19:52 20:33 21:14 WBC 21.5 H RBC 3.23 L Hgb 9.2 L Hct 30.1 L MCV 93 MCH 28.5 MCHC 30.6 L RDW Std Deviation 64.2 H Plt Count 350 Neut % (Auto) 94 H Lymph % (Auto) 4 L Gilliam % (Auto) 1 Eos % (Auto) 0 Baso % (Auto) 1 Neut # (Auto) 20.3 H Lymph # (Auto) 0.8 L Gilliam # (Auto) 0.2 Eos # (Auto) 0.0 Baso # (Auto) 0.1 Immature Gran # (Auto) 0.10 H Absolute Nucleated RBC 0.00 Immature Gran % 1 H Nucleated RBC % 0 ESR PT 11.4 INR 1.0 APTT 24.6 Sodium 163 H* Potassium 4.3 Chloride 126 H* Carbon Dioxide 19.5 L Anion Gap 18 H BUN 92 H Creatinine 2.3 H Estim Creat Clear Calc 15.4 L eGFR 29 L BUN/Creatinine Ratio 40 [address] Glu mg/dL Hemoglobin A1c Calculated Osmolality 349 H Lactic Acid 1.5 Calcium 8.9 Corrected Calcium 9.1 Phosphorus 6.5 H Magnesium 2.8 H Total Bilirubin 0.5 AST 20 ALT 17 Alkaline Phosphatase 95 Lactate Dehydrogenase 266 H Troponin I 0.029 C-Reactive Prot, Quant B-Natriuretic Peptide 41 Total Protein 6.8 Albumin 3.7 Globulin 3.1 Albumin/Globulin Ratio 1.2 Lipase 20 Procalcitonin 19.50 H TSH Free T4 Ur Collection Type Clean Catch Urine Color Yellow Urine Clarity Turbid A Urine pH 6.0 Ur Specific [place] 1.023 Urine Protein 1+ A Urine Glucose (UA) Negative Urine Ketones Trace Urine Blood Trace Urine Nitrite Negative Urine Bilirubin Negative Urine Urobilinogen (Auto) Negative Ur Leukocyte Esterase Negative Urine RBC 2 Urine WBC 1 Ur Squamous Epith Cells 2 Urine Bacteria None Hyaline Casts < 1 [place] < 0.10 L 09/01/24 09/02/24 09/02/24 23:23 03:01 05:16 WBC 22.9 H RBC 2.79 L Hgb 7.9 L Hct 25.7 L MCV 92 MCH 28.3 MCHC 30.7 L RDW Std Deviation 62.2 H Plt Count 293 D Neut % (Auto) 94 H Lymph % (Auto) 4 L Gilliam % (Auto) 1 Eos % (Auto) 0 Baso % (Auto) 0 Neut # (Auto) 21.6 H Lymph # (Auto) 1.0 Gilliam # (Auto) 0.2 Eos # (Auto) 0.0 Baso # (Auto) 0.1 Immature Gran # (Auto) 0.12 H Absolute Nucleated RBC 0.00 Immature Gran % 1 H Nucleated RBC % 0 ESR 127 H PT INR APTT Sodium 165 H* 161 H* 159 H Potassium 3.4 D Chloride 124 H* Carbon Dioxide 19.7 L Anion Gap 15 BUN 86 H Creatinine 2.0 H Estim Creat Clear Calc 16.9 L eGFR 35 L BUN/Creatinine Ratio 43 H Glucose [address] Glu mg/dL Cancelled Hemoglobin A1c Cancelled Calculated Osmolality 344 H Lactic Acid Calcium 8.1 L Corrected Calcium 8.7 Phosphorus 5.4 H Magnesium 2.4 Total Bilirubin 0.6 AST 13 ALT 13 Alkaline Phosphatase 92 Lactate Dehydrogenase Troponin I C-Reactive Prot, Quant 28.5 H B-Natriuretic Peptide Total Protein 6.0 Albumin 3.3 L Globulin 2.7 Albumin/Globulin Ratio 1.2 Lipase Procalcitonin TSH 2.49 Free T4 0.68 L Ur Collection Type Urine Color Urine Clarity Urine pH Ur Specific [place] Urine Protein Urine Glucose (UA) Urine Ketones Urine Blood Urine Nitrite Urine Bilirubin Urine Urobilinogen (Auto) Ur Leukocyte Esterase Urine RBC Urine WBC Ur Squamous Epith Cells Urine Bacteria Hyaline Casts [place] Quality Measures Quality Measures none Advance care planning discussed with:: patient Assessment & Plan Assessment Current Active Medications: Generic Name Dose Route Start Last Admin Trade Name Freq PRN Reason Stop Dose Admin Acetaminophen 650 mg 09/01/24 22:48 Acetaminophen 325 Mg Tablet PO 10/01/24 22:47 Q6H PRN PAIN SCALE 1-3 (mild Acetaminophen 650 mg 09/01/24 22:48 Acetaminophen 325 Mg Tablet PO 10/01/24 22:47 Q6H PRN Fever >100 Albuterol/Ipratropium 3 ml 09/02/24 01:00 09/02/24 08:05 Albuterol/Ipratropium (Duoneb) Rt Elvie 3 Ml Nebu INH 10/02/24 00:59 3 ml Q6HRRT BETY Administration Enoxaparin Sodium 30 mg 09/02/24 09:00 09/02/24 08:40 Enoxaparin Sod Inj 30 Mg/0.3 Ml Syringe SC 09/16/24 08:59 30 mg QDAY BETY Administration Protocol Piperacillin/Tazobactam/Dextrose 50 mls @ 12.5 mls/hr 09/02/24 09:00 09/02/24 09:09 Zosyn IV 09/09/24 08:59 12.5 mls/hr BID BETY Administration Protocol Dextrose 500 mls @ 150 mls/hr 09/02/24 00:12 09/02/24 09:04 D5w IV 09/02/24 13:31 150 mls/hr .Q3H20M BETY Administration Doxycycline Hyclate 100 mg/ 100 mls @ 100 mls/hr 09/02/24 09:00 09/02/24 08:52 Sodium Chloride IV 09/09/24 08:59 100 mls/hr BID BETY Administration Levetiracetam 500 mg 09/01/24 23:15 09/02/24 09:10 Levetiracetam 250 Mg Tablet PO 10/01/24 23:14 500 mg BID BETY Administration Levothyroxine Sodium 20 mcg 09/02/24 09:00 09/02/24 08:41 Levothyroxine Inj 100 Mcg Vial IV 10/02/24 08:59 20 mcg QDAY BETY Administration Pantoprazole Sodium 40 mg 09/02/24 09:00 09/02/24 08:46 Pantoprazole Inj 40 Mg Vial IVP 10/02/24 08:59 40 mg QDAY BETY Administration Plan 73-year-old male with past medical history of developmental delay, anxiety, hypothyroidism, GERD, chronic anemia, and chronic periodontitis was admitted to the hospital on 09/01/2024 due to acute encephalopathy in the setting of sepsis likely 2/2 CAP vs Sacral ulcer. #Acute encephalopathy likely in the setting of #Sepsis likely secondary to #Community-acquired pneumonia #Sacral ulcer ?Patient came in initially with altered mental status and deterioration from his baseline. ?Patient is still unable to follow commands and is nonverbal. ?Patient has a pressure ulcer -qSOFA 2 points ?Encephalopathy could be likely in the setting of infectious versus metabolic etiology ?Head CT was unremarkable ? Chest x-ray did not show right pneumonia ?ESR 127 and CRP 20.5 Plan: ? Will continue with Zosyn and doxycycline [to 09/01/2024 ? Pending blood, urine, wound, and sputum cultures ?Pending abdomen/pelvis CT to rule out osteomyelitis ?N.p.o. for now given he cannot follow commands ? Aspiration precautions ? Will continue to monitor #Hypoosmolar hyperchloremic hypernatremia ? On admission patient had a sodium of 163 and chloride of 126 ? Sodium 156 and chloride 124 currently ? This could be likely in the setting of dehydration and malnutrition ?Free water deficit of 2.4 L Plan: -Sodium goal 145-150 in AM ? Continue D5W at 75 cc/h ? Started patient on free water flushes 200 cc/h via NG tube ?Sodium checks Q4 ?Will continue monitor #NEGRITO ? Patient came in with a creatinine of 2.3 and his baseline is 1.1 ? Creatinine 2 today ? Most likely prerenal in the setting of dehydration Plan: ? Continue IV fluids ? Avoid nephrotoxic agents ? Renally dose medication ? Will continue to monitor #Cachexia #Failure to thrive #Severe dehydration ? Patient is very cachectic ? His electrolyte imbalances as well as his acute encephalopathy could be related to his cachexia and severe dehydration Plan: ?IV fluids ? Refer to registered dietitian #High anion gap metabolic acidosis ? Bicarb 19.7 and anion gap 16 today ? This is most likely in the setting of starvation ketoacidosis Plan: ? Will continue to monitor #Hx of chronic anemia ? Hemoglobin 7.9 today ? Patient's base hemoglobin is around 9-10 ? Drop in hemoglobin today most likely secondary to hemodilution Plan: ?Will transfuse if hemoglobin less than 7 ? Will continue to monitor #Hx of seizures #Hx of developmental delay #Hx of anxiety ? Will continue patient's Keppra ? Will hold off on patient's risperidone for now given his acute encephalopathy. #Hx of hypothyroidism ? Resume patient's levothyroxine 25 mcg Disposition: Patient seen in telemetry pending blood cx and urine cx, continue Abx for sepsis 2/2 PNA vs pressure ulcer, monitoring sodium q4h. Diet: NPO GI prophylaxis: protonix DVT prophylaxis: Lovenox Code: Full code Case disclosed with Attending Dr. Wayne Chauhan PGY1 Attending Provider Attestation/Addendum I, Araceli Black DO, attest that I was physically present for the reddy portions of the service and evaluated the patient with the resident and I reviewed and discussed the case with the resident and agree with the resident's findings and plans of care as documented above Patient seen and evaluated this afternoon. NG tube was placed this morning due to hypernatremia. Will contineu with D5W and trend sodium every 4 hours. Patient at baseline is able to say excuse me and pardon me with and has been having decline in functional status in the past few weeks per family. Patient is able to track with eyes on exam, vocalize and withdraw from pain, but unable to follow commands. Patient is very cachectic on exam. Pressure ulcer noted in gluteal region with necrotic center and some dark purulent drainage and surrounding erythema. Will consult dietitian for further recommendations due to severe protein calorie malnutrition. Monitor for refeeding syndrome once feeding is advanced. Will consult surgery for sacral decubitus ulcer. Continue with IV abx and pending CT abd/pelvis to rule out OM
[2024-09-02 10:16] LABS: Sodium 156 mMol/L (136-145)
--- NOTE | 2024-09-02 10:29 | PC.SS ---
SS attempted to meet with patient at bedside to complete initial assessment. Patient unable to communicate. SS contacted NOK Meenakshi Flores [phone] to complete initial assessment. Meenakshi confirmed demographic information. Patient requires assistance with ADL completion and ambulation. Meenakshi explains Eliazar Phillips provides assistance with ADLs. Per Meenakshi, patient owns outdated wheelchair and a FWW. [facility] PCP: [facility]STAL [facility].- last appointment was 08/28/24. Medical surrogate decision maker: Meenakshi Flores [phone] Discharge plan: Home, Eliazar Phillips to provide transportation.
--- NOTE | 2024-09-02 11:13 | XR_ITS ---
Examination: AP chest single view Technique one AP portable upright chest single view Exam date and time: 2024 1139 hrs. Comparison September 01, 2024 Indications: Post orogastric tube placement Findings: Orogastric tube is coiled in the esophagus Extensive right lung pneumonia Normal heart size Impression: Recommend removing the orogastric tube completely and reinserting
--- NOTE | 2024-09-02 11:54 | XR_ITS ---
Examination: AP chest single view Technique one AP portable semiupright chest single view Exam date and time: August 2024 12:13 PM Comparison August 2024 11:39 AM Indications: Post orogastric tube placement Findings: Orogastric tube tip in the distal stomach satisfactory position Significant right lung pneumonia Normal heart size Impression: Orogastric tube tip in the distal stomach
[2024-09-02 14:44] LABS: Sodium 155 mMol/L (136-145)
[2024-09-02] MEDS: DEXTROSE 5%-WATER 1,000 ML 150 ML IV (15:55)
--- NOTE | 2024-09-02 16:00 | EKG_ITS ---
[facility] (Formerly [facility]) Test Date: 2024-09-02 Pat Name: MARCELINA HERNANDEZ [facility] Gender[facility] Retail Visual Merchandiser: KATRINA : 1950 Requested By: Lee Chauhan Order Number: [id number] Reading MD: Lee Chauhan Measurements Intervals [place] Rate: 75 P: 187 MD: 95 QRS: 29 QRSD: 91 T: 27 QT: 303 QTc: 340 Interpretive Statements SINUS RHYTHM WITH SHORT MD INTERVAL LOW QRS VOLTAGE IN EXTREMITY LEADS Compared to ECG 09/01/2024 19:55:29 Low QRS voltage now present Left-axis deviation no longer present /store/S0/[id number]/ecg/[id number].pdf
--- NOTE | 2024-09-02 16:04 | PC.NURSE ---
Dr. Fletcher made aware of patients blood pressure of 83/45 ith a MAP of 57. New orders placed for 250 mL bolus of D5W, place patient in [place] and repeat blood pressure after bolus.
[2024-09-02] MEDS: DEXTROSE 5%-WATER 250 ML 999 ML IV (16:13)
--- NOTE | 2024-09-02 16:18 | PC.DIETICIAN ---
Patient is at high risk for refeeding syndrome given very low BMI, poor oral intake, and significant weight loss. Recommend 100mg thiamine daily for 7 days; provide the first dose at least 30 minutes before starting nutrition. Nutrition recommendations for TF: 1. Nepro 1.8 at 20 ml/hr x 24 hrs (do not advance). If no IV fluids, water flushes 25 ml/hr (or per MD). 2. Thiamine 100mg/day for 7 days; provide first dose at least 30 minutes before starting nutrition. 3. Multivitamins/Minerals. 4. Daily labs for P, K, and Mg; replace as needed. If no electrolytes disturbances after 24 hrs, advance 10 ml every 12 hrs to goal rate of 40 ml/hr x 24 hrs. Continue with water flushes 25 ml/hr (or per MD). Provides: 1728 kcal, 78 g prot, 697 ml free water, 960 ml total volume. Nutrition recommendations for PO intake: a)Prioritize small, frequent meals Nutrition recommendation for wound: a) Dylon BID w/ lunch and dinner b) add Vitamin C 500mg BID daily, zinc 220mg, Multivitamin-Mineral daily RD to remain available as requested or needed.
[2024-09-02 19:46] LABS: Sodium 157 mMol/L (136-145)
--- NOTE | 2024-09-02 20:20 | PC.NURSE ---
Notified Dr. Burgess of pt. low BP 94/54 map of 67, no orders received, continue to monitor, notify MD if it decreases.
[2024-09-02] MEDS: DEXTROSE 5%-WATER 1,000 ML 75 ML IV (21:12)
[2024-09-02 23:38] LABS: Sodium 153 mMol/L (136-145)
[2024-09-03] VITALS (16 sets, daily range): BP systolic 81–123; BP diastolic 47–93; PULSE 50–117; RESP 14–92; TEMP 36.1–36.8; O2SAT 93–100; BMI 13.1
[2024-09-03] MEDS: ALBUTEROL/IPRATROPIUM (Duoneb) RT SOL 3 ML NEBU INH ×4 (01:52→20:10)
[2024-09-03 02:50] LABS: Sodium 152 mMol/L (136-145)
--- NOTE | 2024-09-03 05:15 | PC.NURSE ---
Dr. Burgess and Dr. Lindo at bedside, to adress pt low BP, NS bolus infusing, recheck BP was 90/49 map of 62, 2nd NS 250 bolus ordered.
[2024-09-03] MEDS: SODIUM CHLORIDE 0.9% 1000 ML 1,000 ML 999 ML IV (05:35)
--- NOTE | 2024-09-03 05:40 | PC.NURSE ---
After 2 250 NS bolus, Pt BP is 105/59.
[2024-09-03] MEDS: SODIUM CHLORIDE 0.9% 500 ML 500 ML 999 ML IV (05:53)
[2024-09-03] MEDS: LEVOTHYROXINE SODIUM 25 MCG TABLET NG (05:54)
[2024-09-03] MEDS: DEXTROSE 5%-WATER 1,000 ML 75 ML IV ×2 (05:56→23:17)
[2024-09-03 06:51] LABS: Basophils % (Auto) 0 % (0-2.5); Eosinophils # (Auto) 0.1 Thou/mm3 (0.0-0.5); Eosinophils % (Auto) 1 % (0-10); Immature Granulocytes % (Auto) 2 % (0-0); Immature Granulocytes Auto 0.27 Thou/mm3 (0.00-0.00); Lymphocytes # (Auto) 0.6 Thou/mm3 (1.0-4.8); Lymphocytes % (Auto) 6 % (10-50); Mean Corpuscular HGB Conc 31.4 g/dl (31.0-37.0); Mean Corpuscular Hemoglobin 28.1 pg (25.0-35.0); Mean Corpuscular Volume 90 fL (80-100); Monocytes # (Auto) 0.1 Thou/mm3 (0.0-0.8); Monocytes % (Auto) 1 % (0-12); Neutrophils # (Auto) 10.1 Thou/mm3 (1.8-7.7); Neutrophils % (Auto) 90 % (37-80); Nucleated Red Blood Cell % 0 /100 WBC (0); RDW Standard Deviation 59.6 fL (35.1-43.9); White Blood Count 11.2 Thou/mm3 (3.8-10.6)
[2024-09-03 07:00] LABS: Alanine Aminotransferase 11 U/L (10-49); Albumin, Serum 2.6 gm/dL (3.4-4.8); Albumin/Globulin Ratio 1.1 (1.2-2.2); Alkaline Phosphatase 82 U/L (46-116); Anion Gap 9 (7-16); Aspartate Amino Transferase 14 U/L (0-34); BUN/Creatinine Ratio 26 Ratio (12-20); Bilirubin,Total 0.3 mg/dL (0.3-1.2); Blood Urea Nitrogen 39 mg/dL (9-23); Calcium 7.2 mg/dL (8.3-10.6); Calcium (Corrected) 8.3 mg/dL (8.5-10.1); Carbon Dioxide 16.7 mMol/L (20.0-31.0); Chloride 111 mMol/L (98-107); Creatinine (Component) 1.5 mg/dL (0.6-1.3); Estimated Creatinine Clearance 22.9 mL/min (>60); Globulin 2.3 gm/dL (2.3-3.5); Magnesium 1.9 mg/dL (1.6-2.6); Osmolality,Calculated 305 (275-295); Phosphorous 3.6 mg/dL (2.4-5.1); Potassium 2.8 mMol/L (3.4-5.1); Sodium 137 mMol/L (136-145); Total Protein 4.9 gm/dL (5.7-8.2); eGFR 49 See Note
--- NOTE | 2024-09-03 07:03 | PC.NURSE ---
Notified Dr. Lindo of low BP of 83/44, 250 of NS bolus order.
[2024-09-03 07:07] LABS: Glucose 496 mg/dL (74-106)
--- NOTE | 2024-09-03 07:07 | PC.NURSE ---
Zack from lab called to report a critical blood glucose level of 496. Finger check performed to verify result- finger stick result: 104. Dr. Fletcher made aware. Order placed per Dr. Fletcher for stat redraw. Results pending.
--- NOTE | 2024-09-03 07:36 | PC.NURSE ---
Lab called reporting critical hemoglobin of 6.4. Dr. Fletcher made aware. Stat CBC placed for redraw of blood. Results pending. No active signs of bleeding per assessment.
[2024-09-03 07:38] LABS: Hematocrit 20.4 % (41.0-53.0); Hemoglobin 6.4 g/dL (13.5-16.0); Platelet Count 203 Thou/mm3 (140-440); Red Blood Count 2.28 Miln/mm3 (4.50-5.90)
[2024-09-03 07:47] LABS: Basophils % (Auto) 0 % (0-2.5); Eosinophils # (Auto) 0.1 Thou/mm3 (0.0-0.5); Eosinophils % (Auto) 0 % (0-10); Hematocrit 25.4 % (41.0-53.0); Immature Granulocytes % (Auto) 2 % (0-0); Immature Granulocytes Auto 0.17 Thou/mm3 (0.00-0.00); Lymphocytes # (Auto) 0.6 Thou/mm3 (1.0-4.8); Lymphocytes % (Auto) 5 % (10-50); Mean Corpuscular HGB Conc 30.7 g/dl (31.0-37.0); Mean Corpuscular Hemoglobin 27.9 pg (25.0-35.0); Mean Corpuscular Volume 91 fL (80-100); Monocytes # (Auto) 0.1 Thou/mm3 (0.0-0.8); Monocytes % (Auto) 1 % (0-12); Neutrophils # (Auto) 10.7 Thou/mm3 (1.8-7.7); Neutrophils % (Auto) 92 % (37-80); Nucleated Red Blood Cell % 0 /100 WBC (0); Platelet Count 229 Thou/mm3 (140-440); RDW Standard Deviation 60.9 fL (35.1-43.9); White Blood Count 11.6 Thou/mm3 (3.8-10.6)
[2024-09-03 07:59] LABS: Alanine Aminotransferase 12 U/L (10-49); Albumin, Serum 3.2 gm/dL (3.4-4.8); Albumin/Globulin Ratio 1.1 (1.2-2.2); Alkaline Phosphatase 96 U/L (46-116); Anion Gap 11 (7-16); Aspartate Amino Transferase 13 U/L (0-34); BUN/Creatinine Ratio 36 Ratio (12-20); Bilirubin,Total 0.4 mg/dL (0.3-1.2); Blood Urea Nitrogen 54 mg/dL (9-23); Calcium 8.3 mg/dL (8.3-10.6); Calcium (Corrected) 8.9 mg/dL (8.5-10.1); Carbon Dioxide 21.5 mMol/L (20.0-31.0); Chloride 118 mMol/L (98-107); Creatinine (Component) 1.5 mg/dL (0.6-1.3); Estimated Creatinine Clearance 22.9 mL/min (>60); Globulin 2.8 gm/dL (2.3-3.5); Glucose 108 mg/dL (74-106); Osmolality,Calculated 313 (275-295); Potassium 2.9 mMol/L (3.4-5.1); Sodium 150 mMol/L (136-145); eGFR 49 See Note
[2024-09-03] MEDS: DOXYCYCLINE INJ 100 MG in SODIUM CHLORIDE 0.9% (P) 100 ML IV ×2 (08:07→20:23)
[2024-09-03] MEDS: PIPER/TAZO 3.375 GM 50 ML IV ×2 (08:09→20:21)
[2024-09-03] MEDS: ENOXAPARIN SOD INJ 30 MG/0.3 ML SYRINGE SC (08:11)
[2024-09-03] MEDS: MIDODRINE 5 MG TABLET PO ×2 (08:11→20:29)
[2024-09-03] MEDS: levETIRAcetam 250 MG TABLET 500 MG PO ×2 (08:11→20:28)
[2024-09-03] MEDS: PANTOPRAZOLE INJ 40 MG VIAL IVP (08:11)
[2024-09-03 09:07] LABS: Hemoglobin 7.8 g/dL (13.5-16.0)
[2024-09-03] MEDS: POTASSIUM CHLORIDE 10% 20 MEQ/15 ML UDC 40 MEQ NG (09:10)
[2024-09-03] MEDS: POTASSIUM CHL 10 mEq IVPB 10 MEQ/100 ML BAG 100 MEQ IV ×4 (09:11→13:56)
--- NOTE | 2024-09-03 09:58 | PD.RESPRO ---
Documentation for date of: 09/03/24 Subjective Subjective Interval history: Patient was seen at bedside this morning. Overnight patient's blood pressure was on the lower end with a MAP below 65 so he was given 1.5 L bolus of sodium chloride. This morning his blood pressure was still on the lower end therefore we will start patient on midodrine 5 mg 3 times daily and continue D5W for now. Patient was doing a lot better today and was able to follow some commands. Repeated patient's blood work given that the ones documented did not seem appropriate to the patient as his sodium was down to 150 today. Potassium was 2.9 therefore repleted with IV potassium. His kidney function is improving. No other complaints at this time. Still pending abd CT. Exam Vital Signs Temp Pulse Resp BP Pulse Ox O2 Del Method O2 Flow Rate 96.9 F 66 14 87/50 L 93 L Room Air 3 09/03/24 07:59 09/03/24 08:11 09/03/24 07:59 09/03/24 08:11 09/03/24 07:59 09/03/24 07:59 09/01/24 17:55 Narrative Exam Physical exam very limited due to patient's medical condition and mental status General: Nonverbal, cachectic, thin, frail elderly Eyes: Pupils constricted, but reactive to light, EOMI. Anicteric Ears: , no visible ear discharge Nose: No nasal discharge. Mouth/Throat: Dry mucous membranes, no redness, no lesions. Neck: Neck supple, no cervical lymphadenopathy. Lungs: Decreased breath sounds JANET, No accessory muscle use. Cardio: Normal S1/S2, regular rhythm, no murmurs, no JVD or carotid bruits. Abdomen: Soft, non-tender, no palpable masses, peristalsis present, no guarding or rebound. Extremities: Symmetrical, no significant deformities, no peripheral edema , non-tender, peripheral pulses presents. Skin: No rashes, no lesions, warm to touch. multiple bruises throughout the body including in L side forehead, necrotic sacral ulcer with discharge, covered by dressing. Neuro: Difficult to assess due to patient's current mental status and medical condition, able to follow simple commands today, nonverbal, able to trace with eyes Objective Labs 09/03/24 07:31 09/03/24 11:00 Labs: Laboratory Results - last 24 hr 02/03/1909/02/24 09/02/24 09:50 14:24 19:24 WBC RBC Hgb Hct MCV MCH MCHC RDW Std Deviation Plt Count Neut % (Auto) Lymph % (Auto) [place] % (Auto) Eos % (Auto) Baso % (Auto) Neut # (Auto) Lymph # (Auto) [place] # (Auto) Eos # (Auto) Baso # (Auto) Immature Gran # (Auto) Absolute Nucleated RBC Immature Gran % Nucleated RBC % Sodium 156 H 155 H 157 H Potassium Chloride Carbon Dioxide Anion Gap BUN Creatinine Estim Creat Clear Calc eGFR BUN/Creatinine Ratio Glucose Calculated Osmolality Calcium Corrected Calcium Phosphorus Magnesium Total Bilirubin AST ALT Alkaline Phosphatase Total Protein Albumin Globulin Albumin/Globulin Ratio 09/02/24 09/03/24 09/03/24 22:43 02:17 05:50 WBC 11.2 H D RBC 2.28 L Hgb 6.4 L* Hct 20.4 L* MCV 90 MCH 28.1 MCHC 31.4 RDW Std Deviation 59.6 H Plt Count 203 D Neut % (Auto) 90 H Lymph % (Auto) 6 L [place] % (Auto) 1 Eos % (Auto) 1 Baso % (Auto) 0 Neut # (Auto) 10.1 H Lymph # (Auto) 0.6 L [place] # (Auto) 0.1 Eos # (Auto) 0.1 Baso # (Auto) 0.0 Immature Gran # (Auto) 0.27 H Absolute Nucleated RBC 0.00 Immature Gran % 2 H Nucleated RBC % 0 Sodium 153 H 152 H 137 D Potassium 2.8 L D Chloride 111 H Carbon Dioxide 16.7 L Anion Gap 9 BUN 39 H Creatinine 1.5 H D Estim Creat Clear Calc 22.9 L eGFR 49 L BUN/Creatinine Ratio 26 H Glucose 496 H* D Calculated Osmolality 305 H Calcium 7.2 L Corrected Calcium 8.3 L Phosphorus 3.6 Magnesium 1.9 Total Bilirubin 0.3 AST 14 ALT 11 Alkaline Phosphatase 82 Total Protein 4.9 L Albumin 2.6 L D Globulin 2.3 Albumin/Globulin Ratio 1.1 L 09/03/24 07:31 WBC 11.6 H RBC 2.80 L Hgb 7.8 L D Hct 25.4 L MCV 91 MCH 27.9 MCHC 30.7 L RDW Std Deviation 60.9 H Plt Count 229 Neut % (Auto) 92 H Lymph % (Auto) 5 L [place] % (Auto) 1 Eos % (Auto) 0 Baso % (Auto) 0 Neut # (Auto) 10.7 H Lymph # (Auto) 0.6 L [place] # (Auto) 0.1 Eos # (Auto) 0.1 Baso # (Auto) 0.0 Immature Gran # (Auto) 0.17 H Absolute Nucleated RBC 0.00 Immature Gran % 2 H Nucleated RBC % 0 Sodium 150 H D Potassium 2.9 L Chloride 118 H Carbon Dioxide 21.5 Anion Gap 11 BUN 54 H Creatinine 1.5 H Estim Creat Clear Calc 22.9 L eGFR 49 L BUN/Creatinine Ratio 36 H Glucose 108 H D Calculated Osmolality 313 H Calcium 8.3 Corrected Calcium 8.9 Phosphorus Magnesium Total Bilirubin 0.4 AST 13 ALT 12 Alkaline Phosphatase 96 Total Protein 6.0 Albumin 3.2 L D Globulin 2.8 Albumin/Globulin Ratio 1.1 L Quality Measures Quality Measures none Advance care planning discussed with:: patient Assessment & Plan Assessment Current Active Medications: Generic Name Dose Route Start Last Admin Trade Name Freq PRN Reason Stop Dose Admin Acetaminophen 650 mg 09/01/24 22:48 Acetaminophen 325 Mg Tablet PO 10/01/24 22:47 Q6H PRN PAIN SCALE 1-3 (mild Acetaminophen 650 mg 09/01/24 22:48 Acetaminophen 325 Mg Tablet PO 10/01/24 22:47 Q6H PRN Fever >100 Albuterol/Ipratropium 3 ml 09/02/24 01:00 09/03/24 07:43 Albuterol/Ipratropium (Duoneb) Rt Elvie 3 Ml Nebu INH 10/02/24 00:59 3 ml Q6HRRT BETY Administration Enoxaparin Sodium 30 mg 09/02/24 09:00 09/03/24 08:11 Enoxaparin Sod Inj 30 Mg/0.3 Ml Syringe SC 09/16/24 08:59 30 mg QDAY BETY Administration Protocol Piperacillin/Tazobactam/Dextrose 50 mls @ 12.5 mls/hr 09/02/24 09:00 09/03/24 08:09 Zosyn IV 09/09/24 08:59 12.5 mls/hr BID BETY Administration Protocol Doxycycline Hyclate 100 mg/ 100 mls @ 100 mls/hr 09/02/24 09:00 09/03/24 08:07 Sodium Chloride IV 09/09/24 08:59 100 mls/hr BID BETY Administration Dextrose 1,000 mls @ 75 mls/hr 09/02/24 16:18 09/03/24 05:56 D5w IV 10/02/24 16:17 75 mls/hr .[id number] BETY Administration Potassium Chloride 10 meq in 100 mls @ 100 mls/hr 09/03/24 08:11 09/03/24 09:11 Kcl Ivpb IV 09/03/24 12:10 100 mls/hr Q1H BETY Administration Levetiracetam 500 mg 09/01/24 23:15 09/03/24 08:11 Levetiracetam 250 Mg Tablet PO 10/01/24 23:14 500 mg BID BETY Administration Levothyroxine Sodium 25 mcg 09/03/24 06:00 09/03/24 05:54 Levothyroxine Sodium 25 Mcg Tablet NG 10/03/24 05:59 25 mcg ACBR BETY Administration Midodrine 5 mg 09/03/24 07:30 09/03/24 08:11 Midodrine 5 Mg Tablet PO 10/03/24 07:29 5 mg TID BETY Administration Pantoprazole Sodium 40 mg 09/02/24 09:00 09/03/24 08:11 Pantoprazole Inj 40 Mg Vial IVP 10/02/24 08:59 40 mg QDAY BETY Administration Plan 73-year-old male with past medical history of developmental delay, anxiety, hypothyroidism, GERD, chronic anemia, and chronic periodontitis was admitted to the hospital on 09/01/2024 due to acute encephalopathy in the setting of sepsis likely 2/2 CAP vs Sacral ulcer. #Acute encephalopathy likely in the setting of #Sepsis likely secondary to #Community-acquired pneumonia #Sacral ulcer ?Patient came in initially with altered mental status and deterioration from his baseline. ?Patient is still unable to follow commands and is nonverbal. ?Patient has a pressure ulcer -qSOFA 2 points ?Encephalopathy could be likely in the setting of infectious versus metabolic etiology ?Head CT was unremarkable ? Chest x-ray did not show right pneumonia ?ESR 127 and CRP 20.5 Plan: ? Will continue with Zosyn and doxycycline [to 09/01/2024 ? Pending blood, urine, wound, and sputum cultures ?Pending abdomen/pelvis CT to rule out osteomyelitis ?N.p.o. for now given he cannot follow commands ? Aspiration precautions -General surgery consulted, appreciate recommendations. ? Will continue to monitor #Hypoosmolar hyperchloremic hypernatremia ? On admission patient had a sodium of 163 and chloride of 126 ? Sodium 150 and chloride 118 currently ? This could be likely in the setting of dehydration and malnutrition Plan: ? Continue D5W at 75 cc/h ? Continue patient on free water flushes 200 cc/h via NG tube ?Sodium checks Q4 ?Will continue monitor #NEGRITO ? Patient came in with a creatinine of 2.3 and his baseline is 1.1 ? Creatinine 1.5 today ? Most likely prerenal in the setting of dehydration Plan: ? Continue IV fluids ? Avoid nephrotoxic agents ? Renally dose medication ? Will continue to monitor #Cachexia #Failure to thrive #Severe dehydration #Severe protein deficit and malnutrition ? Patient is very cachectic ? His electrolyte imbalances as well as his acute encephalopathy could be related to his cachexia and severe dehydration Plan: ?IV fluids - Tube feed--> Nepro 1.8 at 20ml/hr x24 hrs do not advance -thiamine 100mg qday 7 days [09/03-] ? Refer to registered dietitian #High anion gap metabolic acidosis ? Bicarb 21.5 and anion gap 11 today ? This is most likely in the setting of starvation ketoacidosis Plan: ? Will continue to monitor #Hx of chronic anemia ? Hemoglobin 7.8 today ? Patient's base hemoglobin is around 9-10 ? Drop in hemoglobin today most likely secondary to hemodilution Plan: ?Will transfuse if hemoglobin less than 7 ? Will continue to monitor #Hx of seizures #Hx of developmental delay #Hx of anxiety ? Will continue patient's Keppra ? Will hold off on patient's risperidone for now given his acute encephalopathy. #Hx of hypothyroidism ? Resume patient's levothyroxine 25 mcg Disposition: Patient seen in telemetry pending blood cx and urine cx, continue Abx for sepsis 2/2 PNA vs pressure ulcer, monitoring sodium q4h, pending CT and general surgery recs. Diet: NPO GI prophylaxis: protonix DVT prophylaxis: Lovenox Code: Full code Case disclosed with Attending Dr. Wayne Chauhan PGY1 Attending Provider Attestation/Addendum I, Araceli Black, DO, attest that I was physically present for the reddy portions of the service and evaluated the patient with the resident and I reviewed and discussed the case with the resident and agree with the resident's findings and plans of care as documented above Patient seen and evaluated this AM. Patient appears to be more alert. however, BP has been low-normal. Sodium has improved, now 150. Patient had a rapid response due to hypoxia. Will hold tube feeds at this time. Patient improved with HFNC. Will add doxycycline in addition to zosyn due to extensive b/l pneumonia. Will add mucomyst and chest PT as patient continues to have scattered rhonchi, but improved from yesterday. Will continue with D5w and trending sodium. Seen and evaluated by gen/surg, plan for debriedment tomorrow. Will keep patient NPO
[2024-09-03] MEDS: THIAMINE INJ 100 MG/ML VIAL 2 ML IVP (10:47)
[2024-09-03 11:18] LABS: Sodium 149 mMol/L (136-145)
--- NOTE | 2024-09-03 12:06 | PC.NURSE ---
FUNERAL HOME ASSISTANT called related to acute onset of hypoxia. Orders placed for stat chest xray, VBG, Hi-Flow oxygen, and patients NG tube to be placed on LIS. Patient stable on Hi-Flow and denies any pain at this time.
--- NOTE | 2024-09-03 12:09 | XR_ITS ---
Examination: AP chest single view Technique: AP portable chest single view Exam date and time: September 03, 2024 1219 hrs. Comparison September 02, 2024 Indications: Hypoxia Findings: Diffuse significant right lung pneumonia Pneumonia left base Normal heart size Orogastric tube in stomach although the stomach is air distended Impression: Bilateral pneumonia, extensive in the right lung
[2024-09-03 12:22] LABS: Base Excess -7 (-3-3); HCO3 19 mEq/L (20-26); Inspired O2, VO2 Liters 15 L/min; Inspired Oxygen, FIO2 21 %; O2 Saturation 84 % (91-98); PCO2 36 mmHg (32.0-48.0); pH, Arterial 7.33 (7.35-7.45)
[2024-09-03 12:24] LABS: Allen Test Performed/OK; Puncture Site Right Radial
--- NOTE | 2024-09-03 12:24 | PD.RESEVENT ---
Documentation for date of: 09/03/24 Event Note Event Note: Rapid response was called around noon time due to patient desaturating into the low 80s high 70s. Patient was started on tube feeds, therefore there is some risk of aspiration. Patient was given 1 breathing treatment during the rapid response called and his oxygen saturation was around 84 to 85%. Patient did not have too much of increased work of breathing, but he did have upper airway congestion upon auscultation as well as some rhonchi. An ABG and chest x-ray were ordered at this time. Patient's blood pressure during the wrap response was stable. Ordered chest physiotherapy with vest as well. Case disclosed with Attending Dr. Wayne Chauhan PGY1
[2024-09-03 12:26] LABS: PO2 55 mmHg (83-108)
--- NOTE | 2024-09-03 12:50 | ESCONSULT_ITS ---
HPI Consult details History of present illness: 73M with developmental delay, chronic anemia, hypothyroidism, periodontitis who was admitted with AMS and is being treated for pneumonia. Pt additionally noted to have a sacral decubitus ulcer for which general surgery is consulted. Today pt had an SENIOR BUSINESS INTELLIGENCE ANALYST for hypoxia, he is awaiting CT to evaluate the ulcer Review of Systems Review of Systems ROS Unobtainable: unobtainable due to mental status Meds Home Medications and Allergies Home Medications ?Medication ?Instructions ?Recorded ?Confirmed ?Type clonazepam 2 mg tablet 2 mg PO BID PRN FOR SEVERE A NXIETY 07/18/21 01/13/22 History levothyroxine 25 mcg tablet 25 mcg PO DAILY 07/18/21 0 01/13/22 History risperidone 3 mg tablet 6 mg PO HS 07/18/21 01/13/22 History Allergies Allergy/AdvReac Type Severity Reaction Status Date / Time lithium Allergy Verified 01/13/22 19:26 Exam Vital Signs Temp Pulse Resp BP Pulse Ox O2 Del Method O2 Flow Rate 96.9 F 91 26 H 87/50 L 94 L Room Air 40 09/03/24 07:59 09/03/24 12:33 09/03/24 12:33 09/03/24 08:11 09/03/24 12:33 09/03/24 07:59 09/03/24 12:33 FiO2 80 09/03/24 12:33 Constitutional Constitutional: mild distress Results Results: Laboratory Laboratory results: results reviewed Assessment & Plan Plan 73M with developmental delay, chronic anemia, hypothyroidism, periodontitis who was admitted with AMS and is being treated for pneumonia, additionally noted to have a chronic sacral decubitus ulcer. Given pt's recent SENIOR BUSINESS INTELLIGENCE ANALYST for hypoxia I opted not to turn him for safety, but I evaluated the existing picture in the chart and it is possible the wound can benefit from debridement. I will reassess tomorrow pending improvement in respiratory status
--- NOTE | 2024-09-03 13:15 | PC.SS ---
SS contacted [place] Meenakshi Flores [phone] to confirm relation to patient and guardianship. Meenakshi stated she is patient's cousin and is patient's conservator/decision maker. Ekg Technician requested a copy of documents be brought in to [facility] to update patient's chart. Meenakshi stated she would look for documents and bring them tomorrow, 09/04/24.
[2024-09-03 15:21] LABS: Potassium 4.1 mMol/L (3.4-5.1); Sodium 148 mMol/L (136-145)
[2024-09-03 21:57] LABS: Folate 7.79 ng/mL (>5.38); Vitamin B12 403 pg/mL (211-911)
[2024-09-04] VITALS (15 sets, daily range): BP systolic 82–117; BP diastolic 41–64; PULSE 54–95; RESP 14–23; TEMP 35.8–36.2; O2SAT 95–100; BMI 13.1
[2024-09-04 01:02] LABS: Sodium 148 mMol/L (136-145)
[2024-09-04] MEDS: ALBUTEROL/IPRATROPIUM (Duoneb) RT SOL 3 ML NEBU INH ×4 (01:17→18:08)
--- NOTE | 2024-09-04 04:33 | PC.NURSE ---
Addendum entered by Carl Allen RN 09/04/24 04:56: Dr. Burgess ordered NS bolus 500mg and lactic acid lab. Original Note: Hospitalists made aware of patients blood pressure of 87/49. Hospitalits asked if Midodrine was given earlier. RN told hospitalists that midodrine was given earlier. Hospitalist said he will come visit the patient.
[2024-09-04] MEDS: SODIUM CHLORIDE 0.9% 500 ML 500 ML 999 ML IV (04:52)
[2024-09-04] MEDS: MIDODRINE 5 MG TABLET 10 MG PO ×3 (05:11→21:23)
--- NOTE | 2024-09-04 05:18 | PD.RESEVENT ---
Documentation for date of: 09/04/24 Event Note Event Note: Rapid response called for patient around 5 AM for hypotension, systolic blood pressure in 70s. Patient responsive to name. Patient was given 500 cc NS bolus, midodrine 10 mg x 1, placed in Trendelenburg position. Ordered lactate with a.m. labs. Otherwise patient's heart rate normal, patient saturating well on nasal cannula. Will monitor blood pressure after bolus, will consult ICU if patient continues to remain hypotensive. Case discussed with Attending Dr. Ko. Susy Burgess PGY1 Disclaimer: This note was dictated by speech recognition. Minor errors in office electrician may be present due to voice recognition software.
[2024-09-04] MEDS: LEVOTHYROXINE SODIUM 25 MCG TABLET NG (05:29)
[2024-09-04 05:47] LABS: Lactate (Lactic Acid) 1.2 mMol/L (0.4-2.0)
[2024-09-04 05:57] LABS: Basophils % (Auto) 0 % (0-2.5); Eosinophils # (Auto) 0.1 Thou/mm3 (0.0-0.5); Eosinophils % (Auto) 1 % (0-10); Hematocrit 21.8 % (41.0-53.0); Immature Granulocytes % (Auto) 0 % (0-0); Immature Granulocytes Auto 0.03 Thou/mm3 (0.00-0.00); Lymphocytes # (Auto) 0.5 Thou/mm3 (1.0-4.8); Lymphocytes % (Auto) 6 % (10-50); Mean Corpuscular HGB Conc 31.2 g/dl (31.0-37.0); Mean Corpuscular Volume 90 fL (80-100); Monocytes # (Auto) 0.1 Thou/mm3 (0.0-0.8); Monocytes % (Auto) 1 % (0-12); Neutrophils # (Auto) 7.8 Thou/mm3 (1.8-7.7); Neutrophils % (Auto) 91 % (37-80); Nucleated Red Blood Cell % 0 /100 WBC (0); Platelet Count 218 Thou/mm3 (140-440); RDW Standard Deviation 59.6 fL (35.1-43.9); Red Blood Count 2.43 Miln/mm3 (4.50-5.90); White Blood Count 8.6 Thou/mm3 (3.8-10.6)
[2024-09-04 06:06] LABS: Hemoglobin 6.8 g/dL (13.5-16.0)
[2024-09-04] MEDS: SODIUM CHLORIDE 0.9% 250 ML 250 ML 999 ML IV (06:29)
--- NOTE | 2024-09-04 07:21 | CHAP ---
Responded to Rapid Response. All was under control. Prayed silent prayer in hallway.
[2024-09-04 07:30] LABS: Hematocrit 22.4 % (41.0-53.0)
[2024-09-04 07:53] LABS: Alanine Aminotransferase 10 U/L (10-49); Albumin, Serum 2.8 gm/dL (3.4-4.8); Albumin/Globulin Ratio 1.2 (1.2-2.2); Alkaline Phosphatase 83 U/L (46-116); Anion Gap 10 (7-16); Aspartate Amino Transferase 10 U/L (0-34); BUN/Creatinine Ratio 28 Ratio (12-20); Bilirubin,Total 0.4 mg/dL (0.3-1.2); Blood Urea Nitrogen 37 mg/dL (9-23); Calcium 8.2 mg/dL (8.3-10.6); Calcium (Corrected) 9.2 mg/dL (8.5-10.1); Carbon Dioxide 19.6 mMol/L (20.0-31.0); Chloride 120 mMol/L (98-107); Creatinine (Component) 1.3 mg/dL (0.6-1.3); Estimated Creatinine Clearance 26.5 mL/min (>60); Globulin 2.4 gm/dL (2.3-3.5); Glucose 103 mg/dL (74-106); Osmolality,Calculated 306 (275-295); Phosphorous 2.9 mg/dL (2.4-5.1); Potassium 3.7 mMol/L (3.4-5.1); Sodium 150 mMol/L (136-145); Total Protein 5.2 gm/dL (5.7-8.2); eGFR 58 See Note
--- NOTE | 2024-09-04 08:27 | ESPR_ITS ---
<Statement entered by Azalia Bolaños MD - 09/04/24 14:27> I discussed with and supervised my co-resident involved in the care of this patient. I agree with the assessment and plan as documented above. Overnight, patient had rapid response for hypotension and was given IV fluids. Patient remains on HFNC. This morning, patient had another rapid response for low blood pressure. He was given midodrine and increased his D5W, which will help with the blood pressure and the hypernatremia. The repeat hemoglobin came back at 7.0. Patient pulled out his NG tube so had to be placed on mitten restraints. For his sacral ulcer, general surgery to plan for I&D. Will continue IV antibiotics. Will follow up on echo and Q4H sodium checks. Given his overall condition, the resident team spoke to the patient's POA about the status of the patient and pronosis, and family decided to change code status to DNR. Azalia Bolaños MD PGY-3 Documentation for date of: 09/04/24 Subjective Subjective Interval history: Patient was seen at bedside this morning. Patient had a rapid response called during the morning as well as overnight due to low blood pressure. Please see attached event note from 8:27 AM today for further details. We increased the patient's midodrine to 10 mg 3 times daily and increase his D5W to 150 cc/h as well. Today the patient was a lot more alert and he was more responsive today. He pulled out his NG tube, but it was reinserted and the patient was placed on mittens given that he had been trying to pull again his NG tube. General surgery will see the patient later today and decided that the patient is a good candidate for surgical intervention at this time given that he has multiple comorbidities and could be a poor candidate for surgery. Patient's O2 requirements did decrease and he is currently on nasal cannula this morning at 3 L. Patient also have a hemoglobin of 6.8 this morning, but on repeat was 7. Ordered a iron panel for the patient, but his low hemoglobin could be likely in the setting of hemodilution given that he has been on IV fluids since his admission. Ordered an echo for the patient to assess ejection fraction at this time. No other complaints at this time. Spoke with the patient's medical power of county attorney, Meenakshi Flores, patient's cousin about the patient's current condition and his CODE STATUS. She decided to place the patient on DNR/DNI, please see attached event note from 10:45 AM today for further details. Exam Vital Signs Temp Pulse Resp BP Pulse Ox O2 Del Method O2 Flow Rate 97.1 F 67 23 H 85/41 L 100 High Flow Nasal Cannula 2 09/04/24 04:00 09/04/24 06:55 09/04/24 06:55 09/04/24 05:11 09/04/24 06:55 09/04/24 04:00 09/04/24 06:55 FiO2 30 09/04/24 03:11 Narrative Exam Physical exam very limited due to patient's medical condition and mental status General: Trying to communicate, but hard to understand, cachectic, thin, frail elderly on NC 3L Eyes: Pupils constricted, but reactive to light, EOMI. Anicteric Ears: , no visible ear discharge Nose: No nasal discharge. Mouth/Throat: Dry mucous membranes, no redness, no lesions. Neck: Neck supple, no cervical lymphadenopathy. Lungs: Decreased breath sounds JANET still present, No accessory muscle use. Cardio: Normal S1/S2, regular rhythm, no murmurs, no JVD or carotid bruits. Abdomen: Soft, non-tender, no palpable masses, peristalsis present, no guarding or rebound. Extremities: Symmetrical, no significant deformities, no peripheral edema , non-tender, peripheral pulses presents. Skin: No rashes, no lesions, warm to touch. multiple bruises throughout the body including in L side forehead, necrotic sacral ulcer with discharge, covered by dressing. Neuro: Difficult to assess due to patient's current mental status and medical condition, able to follow simple commands today, has been trying to communicate, able to trace with eyes Objective Labs 09/04/24 06:36 09/04/24 12:47 Labs: Laboratory Results - last 24 hr 09/02/24 09/03/24 09/03/24 05:16 07:31 11:00 WBC 11.6 H RBC 2.80 L Hgb 7.8 L D Hct 25.4 L MCV 91 MCH 27.9 MCHC 30.7 L RDW Std Deviation 60.9 H Plt Count 229 Neut % (Auto) 92 H Lymph % (Auto) 5 L Chase % (Auto) 1 Eos % (Auto) 0 Baso % (Auto) 0 Neut # (Auto) 10.7 H Lymph # (Auto) 0.6 L Chase # (Auto) 0.1 Eos # (Auto) 0.1 Baso # (Auto) 0.0 Immature Gran # (Auto) 0.17 H Absolute Nucleated RBC 0.00 Immature Gran % 2 H Nucleated RBC % 0 Puncture Site ABG pH ABG pCO2 ABG pO2 ABG HCO3 ABG O2 Saturation ABG Base Excess Oxygen Liter Flow FiO2 Sodium 149 H Potassium Chloride Carbon Dioxide Anion Gap BUN Creatinine Estim Creat Clear Calc eGFR BUN/Creatinine Ratio Glucose Calculated Osmolality Lactic Acid Calcium Corrected Calcium Phosphorus Magnesium Total Bilirubin AST ALT Alkaline Phosphatase Total Protein Albumin Globulin Albumin/Globulin Ratio Vitamin B12 403 Folate 7.79 Crossmatch 09/03/24 09/03/24 09/04/24 12:15 15:05 00:28 WBC RBC Hgb Hct MCV MCH MCHC RDW Std Deviation Plt Count Neut % (Auto) Lymph % (Auto) Chase % (Auto) Eos % (Auto) Baso % (Auto) Neut # (Auto) Lymph # (Auto) Chase # (Auto) Eos # (Auto) Baso # (Auto) Immature Gran # (Auto) Absolute Nucleated RBC Immature Gran % Nucleated RBC % Puncture Site Right Radial ABG pH 7.33 L ABG pCO2 36 ABG pO2 55 L* ABG HCO3 19 L ABG O2 Saturation 84 L ABG Base Excess -7 L Oxygen Liter Flow 15 FiO2 21 Sodium 148 H 148 H Potassium 4.1 D Chloride Carbon Dioxide Anion Gap BUN Creatinine Estim Creat Clear Calc eGFR BUN/Creatinine Ratio Glucose Calculated Osmolality Lactic Acid Calcium Corrected Calcium Phosphorus Magnesium Total Bilirubin AST ALT Alkaline Phosphatase Total Protein Albumin Globulin Albumin/Globulin Ratio Vitamin B12 Folate Crossmatch 09/04/24 09/04/24 05:17 06:36 WBC 8.6 RBC 2.43 L Hgb 6.8 L* 7.0 L Hct 21.8 L* 22.4 L MCV 90 MCH 28.0 MCHC 31.2 RDW Std Deviation 59.6 H Plt Count 218 Neut % (Auto) 91 H Lymph % (Auto) 6 L Chase % (Auto) 1 Eos % (Auto) 1 Baso % (Auto) 0 Neut # (Auto) 7.8 H Lymph # (Auto) 0.5 L Chase # (Auto) 0.1 Eos # (Auto) 0.1 Baso # (Auto) 0.0 Immature Gran # (Auto) 0.03 H Absolute Nucleated RBC 0.00 Immature Gran % 0 Nucleated RBC % 0 Puncture Site ABG pH ABG pCO2 ABG pO2 ABG HCO3 ABG O2 Saturation ABG Base Excess Oxygen Liter Flow FiO2 Sodium 150 H Potassium 3.7 Chloride 120 H Carbon Dioxide 19.6 L Anion Gap 10 BUN 37 H Creatinine 1.3 Estim Creat Clear Calc 26.5 L eGFR 58 L BUN/Creatinine Ratio 28 H Glucose 103 Calculated Osmolality 306 H Lactic Acid 1.2 Calcium 8.2 L Corrected Calcium 9.2 Phosphorus 2.9 Magnesium 2.0 Total Bilirubin 0.4 AST 10 ALT 10 Alkaline Phosphatase 83 Total Protein 5.2 L Albumin 2.8 L Globulin 2.4 Albumin/Globulin Ratio 1.2 Vitamin B12 Folate Crossmatch See Detail ABG Interpretation ABG results: 09/03/24 12:15 ABG pH 7.33 L ABG pCO2 36 ABG pO2 55 L* ABG HCO3 19 L ABG O2 Saturation 84 L ABG Base Excess -7 L Quality Measures Quality Measures none Advance care planning discussed with:: patient and legal surragate Assessment & Plan Assessment Current Active Medications: Generic Name Dose Route Start Last Admin Trade Name Freq PRN Reason Stop Dose Admin Acetaminophen 650 mg 09/01/24 22:48 Acetaminophen 325 Mg Tablet PO 10/01/24 22:47 Q6H PRN PAIN SCALE 1-3 (mild Acetaminophen 650 mg 09/01/24 22:48 Acetaminophen 325 Mg Tablet PO 10/01/24 22:47 Q6H PRN Fever >100 Acetylcysteine 3 ml 09/03/24 12:32 Acetylcysteine Rt Elvie 10% 4 Ml Nebu INH 10/03/24 12:31 Q6HRRT PRN SOB or crackles Albuterol/Ipratropium 3 ml 09/02/24 01:00 09/04/24 06:55 Albuterol/Ipratropium (Duoneb) Rt Elvie 3 Ml Nebu INH 10/02/24 00:59 3 ml Q6HRRT BETY Administration Enoxaparin Sodium 30 mg 09/02/24 09:00 09/03/24 08:11 Enoxaparin Sod Inj 30 Mg/0.3 Ml Syringe SC 09/16/24 08:59 30 mg QDAY BETY Administration Protocol Piperacillin/Tazobactam/Dextrose 50 mls @ 12.5 mls/hr 09/02/24 09:00 09/03/24 20:21 Zosyn IV 09/09/24 08:59 12.5 mls/hr BID BETY Administration Protocol Doxycycline Hyclate 100 mg/ 100 mls @ 100 mls/hr 09/02/24 09:00 09/03/24 20:23 Sodium Chloride IV 09/08/24 22:59 100 mls/hr BID BETY Administration Dextrose 1,000 mls @ 150 mls/hr 09/04/24 08:12 D5w IV 10/04/24 08:11 .Q6H40M BETY Levetiracetam 500 mg 09/01/24 23:15 09/03/24 20:28 Levetiracetam 250 Mg Tablet PO 10/01/24 23:14 500 mg BID BETY Administration Levothyroxine Sodium 25 mcg 09/03/24 06:00 09/04/24 05:29 Levothyroxine Sodium 25 Mcg Tablet NG 10/03/24 05:59 25 mcg ACBR BETY Administration Midodrine 10 mg 09/04/24 14:00 Midodrine 5 Mg Tablet PO 10/04/24 13:59 TID BETY Pantoprazole Sodium 40 mg 09/02/24 09:00 09/03/24 08:11 Pantoprazole Inj 40 Mg Vial IVP 10/02/24 08:59 40 mg QDAY BETY Administration Thiamine HCl 100 mg 09/03/24 10:30 09/03/24 10:47 Thiamine Inj 100 Mg/Ml Vial 2 Ml IVP 09/10/24 10:29 100 mg QDAY BETY Administration Plan 73-year-old male with past medical history of developmental delay, anxiety, hypothyroidism, GERD, chronic anemia, and chronic periodontitis was admitted to the hospital on 09/01/2024 due to acute encephalopathy in the setting of sepsis likely 2/2 CAP vs Sacral ulcer. #Goals of care discussion At 10:45 AM I spoke with the patient's medical power of county attorney, Meenakshi Flores, who is the patient's cousin to give her an update about the patient's current condition at this time. Given the patient has been having multiple rapids and that his condition is very guarded at this time. Discussed her wishes concerning the patient's CODE STATUS as patient's low body weight will most likely create more complications during chest compressions. After an extensive discussion about the patient's CODE STATUS and what it meant to be full code versus DNR/DNI, she decided to switch the patient from full code to DNR/DNI. #Acute encephalopathy likely in the setting of #Sepsis likely secondary to #Community-acquired pneumonia #Sacral ulcer #Hypotension ?Patient came in initially with altered mental status and deterioration from his baseline. ?Patient is still unable to follow commands and is nonverbal. ?Patient has a pressure ulcer -qSOFA 2 points ?Encephalopathy could be likely in the setting of infectious versus metabolic etiology ?Head CT was unremarkable ? Chest x-ray did not show right pneumonia ?ESR 127 and CRP 20.5 ? blood and urine cultures negative Plan: ? Will continue with Zosyn and doxycycline [to 09/01/2024 -Midodrine 10mg TID ?Pending abdomen/pelvis CT to rule out osteomyelitis ?N.p.o. for now given he cannot follow commands ? Aspiration precautions -General surgery consulted, appreciate recommendations. ? Will continue to monitor #Hypoosmolar hyperchloremic hypernatremia ? On admission patient had a sodium of 163 and chloride of 126 ? Sodium 148 and chloride 120 currently ? This could be likely in the setting of dehydration and malnutrition Plan: ? Continue D5W at 150 cc/h ? Hold free water flushes 200 cc/h via NG tube ?Sodium checks Q4 ?Will continue monitor #NEGRITO ? Patient came in with a creatinine of 2.3 and his baseline is 1.1 ? Creatinine 1.3 today ? Most likely prerenal in the setting of dehydration Plan: ? Continue IV fluids ? Avoid nephrotoxic agents ? Renally dose medication ? Will continue to monitor #Cachexia #Failure to thrive #Severe dehydration #Severe protein deficit and malnutrition ? Patient is very cachectic ? His electrolyte imbalances as well as his acute encephalopathy could be related to his cachexia and severe dehydration Plan: ?IV fluids - Held Tube feed--> Nepro 1.8 at 20ml/hr x24 hrs do not advance -thiamine 100mg qday 7 days [09/03-] ? Refer to registered dietitian #High anion gap metabolic acidosis ? Bicarb 19.6 and anion gap 10 today ? This is most likely in the setting of starvation ketoacidosis Plan: ? Will continue to monitor #Hx of chronic anemia ? Hemoglobin 7 today ? Patient's base hemoglobin is around 9-10 ? Drop in hemoglobin today most likely secondary to hemodilution Plan: -1 PRBC ready to transfuse ?Will transfuse if hemoglobin less than 7 ? Will continue to monitor #Hx of seizures #Hx of developmental delay #Hx of anxiety ? Will continue patient's Keppra ? Will hold off on patient's risperidone for now given his acute encephalopathy. #Hx of hypothyroidism ? Resume patient's levothyroxine 25 mcg Disposition: Patient seen in telemetry pending blood cx and urine cx, continue Abx for sepsis 2/2 PNA vs pressure ulcer, monitoring sodium q4h, pending general surgery recs. Diet: NPO GI prophylaxis: protonix DVT prophylaxis: Lovenox Code: DNR/DNI Case disclosed with Attending Dr. Black and my senior Dr. Bolaños PGY3 Lee Chauhan PGY1 Attending Provider Attestation/Addendum I, Araceli Black, DO, attest that I was physically present for the reddy portions of the service and evaluated the patient with the resident and I reviewed and discussed the case with the resident and agree with the resident's findings and plans of care as documented above Patient seen and evaluated this AM. He is much more alert and able to respond to some simple questions. He states he is feeling better today. POA understanding of patient's frail state and switched code status to DNR/DNI. Patient evaluated by surgeon, recommends continuation of wound care for sacral decubitus ulcer. Hypernatremia persists, will continue with D5w and sodium checks q4h. Will obtain anemia panel due to chronic anemia. Increased midodrine to 10mg PO TID. Will continue with chest pT and mucolytics. Will start NG tube feeds since there are no plans for surgery.
--- NOTE | 2024-09-04 08:27 | PD.RESEVENT ---
Documentation for date of: 09/04/24 Event Note Event Note: Rapid response was called around 7:20 AM this morning due to patient having low blood pressure with a MAP of 57. During this time patient had already received 10 mg of midodrine prior to rapid therefore did not give midodrine at this time, but did increase midodrine to 10 mg 3 times daily. At this time his fluids also were increased to 150 cc/h. We got an EKG that did not show any acute ST changes. Patient was more responsive today. I had the nurse to take the blood pressure with child-size cuff. Patient's MAP then increased to above 65 after the rapid. Patient also had another rapid throughout the night also due to low blood pressure. At this time patient was given IV fluids and he was given midodrine 10 as during this rapid. In the patient has had multiple rapid's due to low blood pressure and his body weight is very low change the parameters of MAP to above 60. Ordered an echo as well. Case disclosed with Attending Dr. Wayne Chauhan PGY1
[2024-09-04 08:28] LABS: Misc Send Out* See Sep Rpt
[2024-09-04] MEDS: DOXYCYCLINE INJ 100 MG in SODIUM CHLORIDE 0.9% (P) 100 ML IV ×2 (08:34→20:13)
[2024-09-04] MEDS: PANTOPRAZOLE INJ 40 MG VIAL IVP (08:36)
--- NOTE | 2024-09-04 08:40 | EKG_ITS ---
[facility] Test Date: 2024-09-04 Pat Name: MARCELINA HERNANDEZ [facility] Gender[facility] Development Editor: ABE : 1950 Requested By: Lee Chauhan Order Number: [id number] Reading MD: Lee Chauhan Measurements Intervals [place] Rate: 70 P: 97 NH: 109 QRS: 83 QRSD: 86 T: 99 QT: 308 QTc: 332 Interpretive Statements SINUS RHYTHM WITH SHORT NH INTERVAL NONSPECIFIC ST & T-WAVE ABNORMALITY Compared to ECG 09/02/2024 16:39:30 T-wave abnormality now present /store/S0/[id number]
[2024-09-04 08:54] LABS: Immature Reticulocyte Fraction 2.5 % (2.3-13.4); Reticulocyte % (Auto) 0.2 % (0.5-1.5); Reticulocyte Absolute Auto 5.5 Biln/L (25.0-75.0); Reticulocyte Hgb Content 28.1 pg (28.0-35.0)
[2024-09-04 09:02] LABS: Ferritin 178 ng/mL (10.5-307.3); Total Iron Binding Capacity 156 mcg/dL (250-425)
--- NOTE | 2024-09-04 09:11 | ECHO_ITS ---
Transthoracic Echo Report Ht (in): 66 Wt (lb): 81 Exam Location: Echo Lab Status: Inpatient Stadium Manager: KENNA Moe^^^^ Indications: Procedure Performed: BP: 82 / 54 HR: Technical Quality: Fair MEASUREMENTS (Male / Female) Normal Values 2D ECHO LV Diastolic Diameter PLAX 4.3 cm 4.2 - 5.9 / 3.9 - 5.3 cm LV Systolic Diameter PLAX 3.3 cm IVS Diastolic Thickness 0.6 cm 0.6 - 1.0 / 0.6 - 0.9 cm LVPW Diastolic Thickness 0.6 cm 0.6 - 1.0 / 0.6 - 0.9 cm LV Relative Wall Thickness 0.3 LVOT Diameter 1.9 cm Aortic Root Diameter 2.9 cm LA Systolic Diameter LX 2.6 cm 3.0 - 4.0 / 2.7 - 3.8 cm LV Ejection Fraction MOD BP 58.8 % >= 55 % LV Ejection Fraction MOD 4C 57.2 % LV Ejection Fraction 4C AL 60.2 % LV Ejection Fraction MOD 2C 59.1 % LV Ejection Fraction 2C AL 59.5 % LA Volume Index 24.9 cm?/m? 16 - 28 cm?/m? DOPPLER AV Peak Velocity 142.0 cm/s AV Peak Gradient 8.1 mmHg AV Mean Gradient 5.0 mmHg AV Velocity Time Integral 31.7 cm AI Peak Velocity 197.0 cm/s AI Peak Gradient 15.5 mmHg AI Pressure Half Time 584.0 ms LVOT Peak Velocity 75.4 cm/s LVOT Peak Gradient 2.3 mmHg LVOT Velocity Time Integral 16.6 cm AV Area Cont Eq vti 1.5 cm? AV Area Cont Eq pk 1.5 cm? MV Area PHT 3.4 cm? MR Peak Velocity 211.0 cm/s MR Peak Gradient 17.8 mmHg Mitral E Point Velocity 52.4 cm/s Mitral A Point Velocity 57.2 cm/s Mitral E to A Ratio 0.9 LV E' Lateral Velocity 8.7 cm/s Mitral E to LV E' Lateral Ratio 6.0 LV E' Septal Velocity 9.9 cm/s Mitral E to LV E' Septal Ratio 5.3 TR Peak Velocity 249.3 cm/s TR Peak Gradient 24.9 mmHg PV Peak Velocity 86.1 cm/s PV Peak Gradient 3.0 mmHg RVOT Peak Velocity 52.5 cm/s FINDINGS Left Ventricle The left ventricular ejection fraction is normal, estimated at 55-60%. The left ventricular cavity size, wall thickness, systolic and diastolic function are normal with no regional wall motion abnormalities present. There is grade I diastolic dysfunction of the left ventricle (impaired relaxation pattern). Right Ventricle The right ventricle is normal in size and systolic function. The estimated right ventricular systolic pressure, 37 mmHg. Left Atrium The left atrium is normal by two-dimensional, color flow and Doppler imaging with no structural abnormalities, no thrombus formation present. Right Atrium The right atrium is normal by two-dimensional imaging, color flow and Doppler imaging with no structural abnormalities, no thrombus formation present. Atrial Septum The interatrial septum appears normal with no evidence of a shunt. Aorta The aorta is normal by two-dimensional, color flow and Doppler interrogation. Mitral Valve Mitral annular calcification. Mild mitral regurgitation. Aortic Valve Aortic valve sclerosis. Mild aortic valve regurgitation. Tricuspid Valve There is mild tricuspid valve regurgitation. Pulmonic Valve Trivial pulmonic valve regurgitation. Vessels The pulmonary artery appears normal. The inferior vena cava pulmonary and hepatic veins appear normal. Pericardium The pericardium is normal by two-dimensional imaging. There is no significant pericardial effusion. CONCLUSIONS Indication: Hyptotension Normla LV size and wall thickness. The LV ejection fraction is normal, estimated at 55-60%. The RV is normal in size and systolic function. The estimated RSVP 37 mmHg. Mild MAC. Mild MR. Mild AV sclerosis without stenosis. Mild to moderate TR. Trace pericardial effusion. No evidence of any tamponade. Vasquez Scott (Electronically Signed) Final Date: 05 September 2024 03:38
[2024-09-04 09:14] LABS: Iron 7 mcg/dL (65-175); Percent Iron Saturation 4 % (20-55); Unsaturated Iron Binding 149 (225-295)
[2024-09-04] MEDS: PIPER/TAZO 3.375 GM 50 ML IV ×2 (09:18→20:14)
[2024-09-04 09:24] LABS: Path Review Blood Smear Sent to Pathologist
--- NOTE | 2024-09-04 10:04 | XR_ITS ---
Examination: AP chest single view TECHNIQUE: AP chest single view Exam date and time: September 04, 2024 1018 hours INDICATIONS: Post orogastric tube placement FINDINGS: Orogastric tube in the stomach satisfactory position Significant right lung and left base pneumonia Normal heart size IMPRESSION: Orogastric tube in the stomach satisfactory position
[2024-09-04] MEDS: DEXTROSE 5%-WATER 1,000 ML 150 ML IV ×3 (10:06→19:56)
[2024-09-04 10:11] LABS: Sodium 148 mMol/L (136-145)
--- NOTE | 2024-09-04 10:45 | PD.RESEVENT ---
Documentation for date of: 09/04/24 Event Note Event Note: At 10:45 AM I spoke with the patient's medical power of employment attorney, Meenakshi Flores, who is the patient's cousin to give her an update about the patient's current condition at this time. Given the patient has been having multiple rapids and that his condition is very guarded at this time. Discussed her wishes concerning the patient's CODE STATUS as patient's low body weight will most likely create more complications during chest compressions. After an extensive discussion about the patient's CODE STATUS and what it meant to be full code versus DNR/DNI, she decided to switch the patient from full code to DNR/DNI. Case disclosed with Attending Dr. Wayne Chauhan PGY1
--- NOTE | 2024-09-04 12:06 | PC.PT ---
PT eval withheld today 2/2 patient has low Hgb combined with hypotension. RN made aware of decision to withhold PT eval for today.
[2024-09-04] MEDS: THIAMINE INJ 100 MG/ML VIAL 2 ML IVP (12:15)
[2024-09-04] MEDS: levETIRAcetam 250 MG TABLET 500 MG PO ×2 (12:15→20:14)
[2024-09-04 13:20] LABS: Sodium 146 mMol/L (136-145)
--- NOTE | 2024-09-04 14:34 | PC.SS ---
Rounding Note: Patient to undergo I & D today. Patient in possession of ulcer on back. Patient is not high flow oxygen.
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
--- NOTE | 2024-09-04 16:54 | PD.SURPROG ---
Documentation for date of: 09/04/24 Subjective Subjective Brief History: 73M with developmental delay, chronic anemia, hypothyroidism, periodontitis who was admitted with AMS and is being treated for pneumonia. Pt additionally noted to have a sacral decubitus ulcer for which general surgery is consulted. Today pt had an ENGINE ASSEMBLY SUPERVISOR for hypoxia, he is awaiting CT to evaluate the ulcer Narrative: Pt had another ENGINE ASSEMBLY SUPERVISOR this am for hypotension, primary team had GOC discussion with decision makers and pt was made DNR/DNI Exam Vital Signs Temp Pulse Resp BP Pulse Ox O2 Del Method O2 Flow Rate 97.1 F 66 16 82/56 L 100 High Flow Nasal Cannula 2 09/04/24 16:00 09/04/24 16:00 09/04/24 16:00 09/04/24 16:00 09/04/24 16:00 09/04/24 16:00 09/04/24 16:00 FiO2 5.0 09/04/24 16:00 Constitutional Constitutional: no acute distress, cachectic and chronically ill appearing Routine Respiratory Exam Respiratory: Present no resp distress Routine Skin Exam Comments: sacral decubitus ulcer probing to bone with some fibrinous tissue, no overt necrotic tissue, no purulence Results Results: Laboratory Laboratory results: results reviewed Assessment & Plan Plan 73M with developmental delay, chronic anemia, hypothyroidism, periodontitis who was admitted with AMS and is being treated for pneumonia, additionally noted to have a chronic sacral decubitus ulcer. On exam the wound has fibrinous tissue but no jennifer necrotic tissue, and considering his overall clinical status it seems that wound care would be more helpful than any invasive procedure. Appreciate wound care recs Will follow up again Wed 09/06
--- NOTE | 2024-09-04 17:05 | PC.SS ---
HEAT TREATING FURNACE TENDER confirmed with patient's conservator that discharge plan is for the patient to transition to SNF. No preferred SNF identifed.
--- NOTE | 2024-09-04 17:13 | PC.SS ---
SNF referral submitted on [facility] [place] platform. Responses are pending.
[2024-09-04] MEDS: SOD HYPOCHLORITE 1/4 STR 473 ML BTL IRRIG (20:13)
[2024-09-05] VITALS (15 sets, daily range): BP systolic 91–130; BP diastolic 46–66; PULSE 60–85; RESP 14–30; TEMP 36–36.7; O2SAT 98–100; BMI 13.6; BMI 12.0
[2024-09-05] MEDS: ALBUTEROL/IPRATROPIUM (Duoneb) RT SOL 3 ML NEBU INH ×4 (00:12→18:10)
[2024-09-05] MEDS: DEXTROSE 5%-WATER 1,000 ML 150 ML IV (01:35)
--- NOTE | 2024-09-05 02:15 | PC.RT ---
0130 called to bedside in regards to pts spo2 73%. placed the pt on high flow that was at bedside w/no improvement, but noticed the pt was mouth breathing. placed a oxymask on the pt and titrated to 3L oxymask w/ spo2 of 98%.
[2024-09-05] MEDS: MIDODRINE 5 MG TABLET 10 MG PO ×3 (05:04→21:58)
[2024-09-05] MEDS: LEVOTHYROXINE SODIUM 25 MCG TABLET NG (05:06)
[2024-09-05 05:45] LABS: Basophils % (Auto) 0 % (0-2.5); Eosinophils # (Auto) 0.1 Thou/mm3 (0.0-0.5); Eosinophils % (Auto) 1 % (0-10); Hematocrit 24.4 % (41.0-53.0); Immature Granulocytes % (Auto) 1 % (0-0); Immature Granulocytes Auto 0.04 Thou/mm3 (0.00-0.00); Lymphocytes # (Auto) 0.5 Thou/mm3 (1.0-4.8); Lymphocytes % (Auto) 6 % (10-50); Mean Corpuscular HGB Conc 30.3 g/dl (31.0-37.0); Mean Corpuscular Hemoglobin 27.7 pg (25.0-35.0); Mean Corpuscular Volume 91 fL (80-100); Monocytes # (Auto) 0.1 Thou/mm3 (0.0-0.8); Monocytes % (Auto) 2 % (0-12); Neutrophils # (Auto) 7.4 Thou/mm3 (1.8-7.7); Neutrophils % (Auto) 91 % (37-80); Nucleated Red Blood Cell % 0 /100 WBC (0); Platelet Count 238 Thou/mm3 (140-440); RDW Standard Deviation 60.4 fL (35.1-43.9); Red Blood Count 2.67 Miln/mm3 (4.50-5.90); White Blood Count 8.1 Thou/mm3 (3.8-10.6)
[2024-09-05 06:00] LABS: Hemoglobin 7.4 g/dL (13.5-16.0)
[2024-09-05 06:26] LABS: Alanine Aminotransferase 9 U/L (10-49); Albumin, Serum 2.7 gm/dL (3.4-4.8); Albumin/Globulin Ratio 1.1 (1.2-2.2); Alkaline Phosphatase 71 U/L (46-116); Anion Gap 11 (7-16); Aspartate Amino Transferase 10 U/L (0-34); BUN/Creatinine Ratio 18 Ratio (12-20); Bilirubin,Total 0.3 mg/dL (0.3-1.2); Blood Urea Nitrogen 22 mg/dL (9-23); Calcium 8.6 mg/dL (8.3-10.6); Calcium (Corrected) 9.6 mg/dL (8.5-10.1); Carbon Dioxide 18.3 mMol/L (20.0-31.0); Chloride 117 mMol/L (98-107); Creatinine (Component) 1.2 mg/dL (0.6-1.3); Estimated Creatinine Clearance 29.9 mL/min (>60); Globulin 2.5 gm/dL (2.3-3.5); Glucose 144 mg/dL (74-106); Magnesium 1.8 mg/dL (1.6-2.6); Osmolality,Calculated 296 (275-295); Phosphorous 2.8 mg/dL (2.4-5.1); Potassium 3.1 mMol/L (3.4-5.1); Sodium 146 mMol/L (136-145); Total Protein 5.2 gm/dL (5.7-8.2); eGFR > 60 See Note
--- NOTE | 2024-09-05 08:04 | PC.SS ---
PASSR completed. Patient meets Level II criteria. PASSR follow up is pending.
--- NOTE | 2024-09-05 08:31 | EKG_ITS ---
[facility] Test Date: 2024-09-05 Pat Name: MARCELINA HERNANDEZ [facility] Gender[facility] Volunteer Manager: ABE : 1950 Requested By: Lee Chauhan Order Number: [id number] Reading MD: Lee Chauhan Measurements Intervals [place] Rate: 75 P: 71 OR: 122 QRS: 70 QRSD: 87 T: 82 QT: 310 QTc: 346 Interpretive Statements SINUS RHYTHM NONSPECIFIC T-WAVE ABNORMALITY Compared to ECG 09/04/2024 09:26:23 Short OR interval no longer present T-wave abnormality still present /store/S0/[id number]
[2024-09-05] MEDS: POTASSIUM CHLORIDE 10% 20 MEQ/15 ML UDC 40 MEQ NG (09:07)
[2024-09-05] MEDS: DOXYCYCLINE INJ 100 MG in SODIUM CHLORIDE 0.9% (P) 100 ML IV ×2 (09:08→20:47)
[2024-09-05] MEDS: Magnesium Sulfate 2 GM Ivpb 2 GM/50 ML BAG IV (09:08)
[2024-09-05] MEDS: ENOXAPARIN SOD INJ 30 MG/0.3 ML SYRINGE SC (09:09)
[2024-09-05] MEDS: PANTOPRAZOLE INJ 40 MG VIAL IVP (09:10)
[2024-09-05] MEDS: PIPER/TAZO 3.375 GM 50 ML IV ×2 (09:11→20:46)
[2024-09-05] MEDS: THIAMINE INJ 100 MG/ML VIAL 2 ML IVP (09:11)
--- NOTE | 2024-09-05 09:28 | PC.DIETICIAN ---
Nutrition recommendations for TF (updated): 1. Jevity 1.5 at 20 ml/hr x 24 hrs (do not advance). If no IV fluids, water flushes 50 ml/hr (per MD). 2. Thiamine 100mg/day for 7 days; provide first dose at least 30 minutes before starting nutrition. 3. Multivitamins/Minerals. 4. Daily labs for P, K, and Mg; replace as needed. If no electrolytes disturbances after 24 hrs, advance 10 ml every 12 hrs to goal rate of 50 ml/hr x 22 hrs. -Hold TF for one hour before and after levothyroxine administration-
[2024-09-05] MEDS: MULTIVITAMINS TABLET 1 TAB PO (09:37)
[2024-09-05] MEDS: levETIRAcetam LIQD 500 MG/5 ML UDC NG ×2 (09:46→20:46)
--- NOTE | 2024-09-05 11:19 | ESPR_ITS ---
<Statement entered by Azalia Bolaños MD - 09/05/24 13:53> I discussed with and supervised my co-resident involved in the care of this patient. I agree with the assessment and plan as documented above. Patient seen and examined at bedside. He is more responsive, tracking. On NC now. Labs show hypokalemia, which was repleted. Sodium improved to 146 so fluids were discontinued. Will see if patient can tolerate an oral diet. If not, may have to reach out to family regarding nutrition options. Patient has significant failure to thrive. Continuing wound care for sacral ulcer. Azalia Bolaños MD PGY-3 Documentation for date of: 09/05/24 Subjective Subjective Interval history: Patient was seen at bedside this morning. No overnight events. Patient sodium has down trended to 146 today and has hemoglobin has been stable at 7.4. He then had some hyperchloremic metabolic acidosis and some hypokalemia today. Repleted potassium as well as magnesium. Stop patient's IV fluids and free water flushes as he is getting tube feeds. Order EKG due to patient having a heart rate in the 140s to 150s on the environmental monitoring specialist. Will try and start patient on oral diet tomorrow after speech therapist evaluated the patient again. Surgery stated to do wound care for now as patient is a poor candidate for surgical intervention at this time. Will schedule for goals of care discussion with patient's medical power of admitted attorneys. Will continue monitoring. Exam Vital Signs Temp Pulse Resp BP Pulse Ox O2 Del Method O2 Flow Rate 97.1 F 68 16 97/53 L 100 High Flow Nasal Cannula 3 09/05/24 07:57 09/05/24 07:57 09/05/24 07:57 09/05/24 07:57 09/05/24 07:57 09/05/24 07:57 09/05/24 07:57 FiO2 5.0 09/05/24 07:57 Narrative Exam Physical exam very limited due to patient's medical condition and mental status General: low barely audible speech, but hard to understand, cachectic, thin, frail elderly on NC 3L Eyes: Pupils constricted, but reactive to light, EOMI. Anicteric Ears: no visible ear discharge Nose: No nasal discharge. Mouth/Throat: Dry mucous membranes, no redness, no lesions. Neck: Neck supple, no cervical lymphadenopathy. Lungs: Decreased breath sounds JANET still present, No accessory muscle use. Cardio: Normal S1/S2, regular rhythm, no murmurs, no JVD or carotid bruits. Abdomen: Soft, non-tender, no palpable masses, peristalsis present, no guarding or rebound. Extremities: Symmetrical, no significant deformities, no peripheral edema , non-tender, peripheral pulses presents. Skin: No rashes, no lesions, warm to touch. multiple bruises throughout the body including in L side forehead, necrotic sacral ulcer with discharge, covered by dressing. Neuro: Difficult to assess due to patient's current mental status and medical condition, able to follow simple commands, has been trying to communicate with low speech barely audible, able to trace with eyes Objective Labs 09/06/24 10:00 09/06/24 05:45 Labs: Laboratory Results - last 24 hr 09/04/24 09/05/24 12:47 05:24 WBC 8.1 RBC 2.67 L Hgb 7.4 L Hct 24.4 L MCV 91 MCH 27.7 MCHC 30.3 L RDW Std Deviation 60.4 H Plt Count 238 Neut % (Auto) 91 H Lymph % (Auto) 6 L [place] % (Auto) 2 Eos % (Auto) 1 Baso % (Auto) 0 Neut # (Auto) 7.4 Lymph # (Auto) 0.5 L [place] # (Auto) 0.1 Eos # (Auto) 0.1 Baso # (Auto) 0.0 Immature Gran # (Auto) 0.04 H Absolute Nucleated RBC 0.00 Immature Gran % 1 H Nucleated RBC % 0 Sodium 146 H 146 H Potassium 3.1 L D Chloride 117 H Carbon Dioxide 18.3 L Anion Gap 11 BUN 22 Creatinine 1.2 Estim Creat Clear Calc 29.9 L eGFR > 60 BUN/Creatinine Ratio 18 Glucose 144 H Calculated Osmolality 296 H Calcium 8.6 Corrected Calcium 9.6 Phosphorus 2.8 Magnesium 1.8 Total Bilirubin 0.3 AST 10 ALT 9 L Alkaline Phosphatase 71 Total Protein 5.2 L Albumin 2.7 L Globulin 2.5 Albumin/Globulin Ratio 1.1 L ABG Interpretation ABG results: 09/03/24 12:15 ABG pH 7.33 L ABG pCO2 36 ABG pO2 55 L* ABG HCO3 19 L ABG O2 Saturation 84 L ABG Base Excess -7 L Quality Measures Quality Measures none Advance care planning discussed with:: patient Assessment & Plan Assessment Current Active Medications: Generic Name Dose Route Start Last Admin Trade Name Freq PRN Reason Stop Dose Admin Acetaminophen 650 mg 09/01/24 22:48 Acetaminophen 325 Mg Tablet PO 10/01/24 22:47 Q6H PRN PAIN SCALE 1-3 (mild Acetaminophen 650 mg 09/01/24 22:48 Acetaminophen 325 Mg Tablet PO 10/01/24 22:47 Q6H PRN Fever >100 Acetylcysteine 3 ml 09/03/24 12:32 Acetylcysteine Rt Elvie 10% 4 Ml Nebu INH 10/03/24 12:31 Q6HRRT PRN SOB or crackles Albuterol/Ipratropium 3 ml 09/02/24 01:00 09/05/24 06:53 Albuterol/Ipratropium (Duoneb) Rt Elvie 3 Ml Nebu INH 10/02/24 00:59 3 ml Q6HRRT BETY Administration Enoxaparin Sodium 30 mg 09/02/24 09:00 09/05/24 09:09 Enoxaparin Sod Inj 30 Mg/0.3 Ml Syringe SC 09/16/24 08:59 30 mg QDAY BETY Administration Protocol Piperacillin/Tazobactam/Dextrose 50 mls @ 12.5 mls/hr 09/02/24 09:00 09/05/24 09:11 Zosyn IV 09/09/24 08:59 12.5 mls/hr BID BETY Administration Protocol Doxycycline Hyclate 100 mg/ 100 mls @ 100 mls/hr 09/02/24 09:00 09/05/24 09:08 Sodium Chloride IV 09/08/24 22:59 100 mls/hr BID BETY Administration Levetiracetam 500 mg 09/05/24 09:45 09/05/24 09:46 Levetiracetam Liqd 500 Mg/5 Ml Udc NG 10/01/24 23:14 500 mg BID BETY Administration Levothyroxine Sodium 25 mcg 09/03/24 06:00 09/05/24 05:06 Levothyroxine Sodium 25 Mcg Tablet NG 10/03/24 05:59 25 mcg ACBR BETY Administration Midodrine 10 mg 09/04/24 14:00 09/05/24 05:04 Midodrine 5 Mg Tablet PO 10/04/24 13:59 10 mg TID BETY Administration Multivitamins 1 tab 09/05/24 09:15 09/05/24 09:37 Multivitamins Tablet PO 10/05/24 09:14 1 tab QDAY BETY Administration Pantoprazole Sodium 40 mg 09/02/24 09:00 09/05/24 09:10 Pantoprazole Inj 40 Mg Vial IVP 10/02/24 08:59 40 mg QDAY BETY Administration Sodium Hypochlorite 473 ml 09/04/24 21:00 09/04/24 20:13 Sod Hypochlorite 1/4 Str 473 Ml Btl IRRIG 10/04/24 20:59 1 ml HS BETY Administration Thiamine HCl 100 mg 09/03/24 10:30 09/05/24 09:11 Thiamine Inj 100 Mg/Ml Vial 2 Ml IVP 09/10/24 10:29 100 mg QDAY BETY Administration Plan 73-year-old male with past medical history of developmental delay, anxiety, hypothyroidism, GERD, chronic anemia, and chronic periodontitis was admitted to the hospital on 09/01/2024 due to acute encephalopathy in the setting of sepsis likely 2/2 CAP vs Sacral ulcer. #Goals of care discussion At 10:45 AM I spoke with the patient's medical power of admitted attorneys, Meenakshi Flores, who is the patient's cousin to give her an update about the patient's current condition at this time. Given the patient has been having multiple rapids and that his condition is very guarded at this time. Discussed her wishes concerning the patient's CODE STATUS as patient's low body weight will most likely create more complications during chest compressions. After an extensive discussion about the patient's CODE STATUS and what it meant to be full code versus DNR/DNI, she decided to switch the patient from full code to DNR/DNI. ? Will schedule for goals of care discussion with patient's medical power of admitted attorneys in person, social worker palliative care updated. #Acute encephalopathy likely in the setting of #Sepsis, resolved #Community-acquired pneumonia #Sacral ulcer #Hypotension ?Patient came in initially with altered mental status and deterioration from his baseline. ?Patient is still unable to follow commands and is nonverbal. ?Patient has a pressure ulcer -qSOFA 2 points ?Encephalopathy could be likely in the setting of infectious versus metabolic etiology ?Head CT was unremarkable ? Chest x-ray did not show right pneumonia ?ESR 127 and CRP 20.5 ? blood and urine cultures negative Plan: ? Will continue with Zosyn and doxycycline [to 09/01/2024 -Midodrine 10mg TID ?Pending abdomen/pelvis CT to rule out osteomyelitis ?N.p.o. for now given he cannot follow commands ? Aspiration precautions -General surgery consulted, appreciate recommendations. ? Will continue to monitor #Hypoosmolar hyperchloremic hypernatremia ? On admission patient had a sodium of 163 and chloride of 126 ? Sodium 146 and chloride 117 currently ? This could be likely in the setting of dehydration and malnutrition Plan: ? discontinue IV fluids and free water flushes ?Will continue monitor #NEGRITO, resolved ? Patient came in with a creatinine of 2.3 and his baseline is 1.1 ? Creatinine 1.2 today ? Most likely prerenal in the setting of dehydration Plan: ? Discontinued IV fluids ? Avoid nephrotoxic agents ? Renally dose medication ? Will continue to monitor #Cachexia #Failure to thrive #Severe dehydration #Severe protein deficit and malnutrition ? Patient is very cachectic ? His electrolyte imbalances as well as his acute encephalopathy could be related to his cachexia and severe dehydration Plan: ?Jevity tube feeds, possible oral diet tomorrow after speech evaluation -Multivitamin qday -thiamine 100mg qday 7 days [09/03-] ? Refer to registered dietitian #Hyperchloremic metabolic acidosis ? Bicarb 18.3 and chloride 117 ? DDx RTA Plan: -Urine electrolytes ? Will continue to monitor #Hx of chronic anemia ? Hemoglobin 7.4 today ? Patient's base hemoglobin is around 9-10 ? Drop in hemoglobin today most likely secondary to hemodilution Plan: -1 PRBC ready to transfuse ?Will transfuse if hemoglobin less than 7 ? Will continue to monitor #Hx of seizures #Hx of developmental delay #Hx of anxiety ? Will continue patient's Keppra ? Will hold off on patient's risperidone for now given his acute encephalopathy. #Hx of hypothyroidism ? Resume patient's levothyroxine 25 mcg Disposition: Patient seen in telemetry pending blood cx and urine cx, continue Abx for sepsis 2/2 PNA vs pressure ulcer, pending goals of care discussion. Diet: Jevity GI prophylaxis: protonix DVT prophylaxis: Lovenox Code: DNR/DNI Case disclosed with Attending Dr. Black and my senior Dr. Bolaños PGY3 Lee Chauhan PGY1 Attending Provider Attestation/Addendum I, Araceli Black DO, attest that I was physically present for the reddy portions of the service and evaluated the patient with the resident and I reviewed and discussed the case with the resident and agree with the resident's findings and plans of care as documented above Patient seen and eval this a.m. Will advance tube feeds. Patient is much more alert and able to answer to simple questions. Plan for goals of care discussion tomorrow with family regarding patient's plan of care. Concerned that patient is at high risk of aspiration and may not be able to meet his nutritional demands with p.o. intake. Will discuss possibility for PEG tube feedings. Sodium improving. Patient continues to have scattered rhonchi on exam. Will continue chest PT. He is currently on 2 L nasal cannula. Will continue with current management otherwise.
--- NOTE | 2024-09-05 11:40 | PC.SS ---
PUBLIC RECORDS RESEARCHER met with APS staff, Patrizia San ; who responded to APS report generated on 09-04-24. APS staff to conduct bedside contact with patient. PUBLIC RECORDS RESEARCHER informed APS staff that plan is for the patient to transition to SNF upon discharge.
--- NOTE | 2024-09-05 13:35 | PC.SS ---
Goals of care meeting scheduled for tomorrow at 11:00 am with patient's conservator, Meenakshi Flores . LIGHT BULB ASSEMBLER updated resident to scheduled meeting.
[2024-09-05] MEDS: SOD HYPOCHLORITE 1/4 STR 473 ML BTL IRRIG (20:45)
[2024-09-06] VITALS (14 sets, daily range): BP systolic 87–112; BP diastolic 51–74; PULSE 63–113; RESP 14–23; TEMP 36.1–36.8; O2SAT 96–100
[2024-09-06] MEDS: ALBUTEROL/IPRATROPIUM (Duoneb) RT SOL 3 ML NEBU INH ×5 (00:55→18:20)
[2024-09-06] MEDS: MIDODRINE 5 MG TABLET 10 MG PO ×3 (05:17→22:41)
[2024-09-06] MEDS: LEVOTHYROXINE SODIUM 25 MCG TABLET NG (05:17)
[2024-09-06 06:46] LABS: Alanine Aminotransferase < 7 U/L (10-49); Albumin, Serum 2.7 gm/dL (3.4-4.8); Albumin/Globulin Ratio 1.2 (1.2-2.2); Alkaline Phosphatase 75 U/L (46-116); Anion Gap 6 (7-16); Aspartate Amino Transferase 12 U/L (0-34); BUN/Creatinine Ratio 25 Ratio (12-20); Bilirubin,Total 0.3 mg/dL (0.3-1.2); Blood Urea Nitrogen 27 mg/dL (9-23); Calcium 8.2 mg/dL (8.3-10.6); Calcium (Corrected) 9.2 mg/dL (8.5-10.1); Chloride 121 mMol/L (98-107); Creatinine (Component) 1.1 mg/dL (0.6-1.3); Estimated Creatinine Clearance 34.5 mL/min (>60); Globulin 2.3 gm/dL (2.3-3.5); Glucose 104 mg/dL (74-106); Magnesium 2.2 mg/dL (1.6-2.6); Osmolality,Calculated 299 (275-295); Phosphorous 2.9 mg/dL (2.4-5.1); Potassium 4.1 mMol/L (3.4-5.1); Sodium 148 mMol/L (136-145); eGFR > 60 See Note
[2024-09-06 07:39] LABS: Basophils % (Auto) 0 % (0-2.5); Eosinophils # (Auto) 0.1 Thou/mm3 (0.0-0.5); Eosinophils % (Auto) 1 % (0-10); Immature Granulocytes % (Auto) 1 % (0-0); Immature Granulocytes Auto 0.06 Thou/mm3 (0.00-0.00); Lymphocytes # (Auto) 0.7 Thou/mm3 (1.0-4.8); Lymphocytes % (Auto) 8 % (10-50); Mean Corpuscular HGB Conc 30.9 g/dl (31.0-37.0); Mean Corpuscular Hemoglobin 27.8 pg (25.0-35.0); Mean Corpuscular Volume 90 fL (80-100); Monocytes # (Auto) 0.2 Thou/mm3 (0.0-0.8); Monocytes % (Auto) 3 % (0-12); Neutrophils # (Auto) 7.5 Thou/mm3 (1.8-7.7); Neutrophils % (Auto) 87 % (37-80); Nucleated Red Blood Cell % 0 /100 WBC (0); Platelet Count 282 Thou/mm3 (140-440); RDW Standard Deviation 59.7 fL (35.1-43.9); Red Blood Count 2.45 Miln/mm3 (4.50-5.90); White Blood Count 8.6 Thou/mm3 (3.8-10.6)
[2024-09-06 08:02] LABS: Hemoglobin 6.8 g/dL (13.5-16.0)
[2024-09-06] MEDS: DOXYCYCLINE INJ 100 MG in SODIUM CHLORIDE 0.9% (P) 100 ML IV ×2 (09:23→20:50)
[2024-09-06] MEDS: PIPER/TAZO 3.375 GM 50 ML IV ×2 (09:23→22:42)
[2024-09-06] MEDS: PANTOPRAZOLE INJ 40 MG VIAL IVP (09:24)
[2024-09-06] MEDS: ENOXAPARIN SOD INJ 30 MG/0.3 ML SYRINGE SC (09:24)
[2024-09-06] MEDS: MULTIVITAMINS TABLET 1 TAB PO (09:24)
[2024-09-06] MEDS: SENNA TABLET 1 TAB PO (09:24)
[2024-09-06] MEDS: THIAMINE INJ 100 MG/ML VIAL 2 ML IVP (09:25)
[2024-09-06] MEDS: levETIRAcetam LIQD 500 MG/5 ML UDC NG ×2 (09:25→22:41)
[2024-09-06] MEDS: ACETYLCYSTEINE RT SOL 10% 4 ML NEBU 3 ML INH ×2 (09:37→18:20)
[2024-09-06 10:41] LABS: Hematocrit 26.1 % (41.0-53.0)
[2024-09-06 10:47] LABS: Hemoglobin 8.1 g/dL (13.5-16.0)
--- NOTE | 2024-09-06 12:18 | PC.SS ---
Goals of care discussion conducted with patient?s cousin (Meenakshi Flores) and cousin?s spouse, Eliazar Phillips.? Medical team consisted of Dr. Bolaños and Dr. Fletcher.? Undersigned and facility planner present.? Medical team provided family with overview on patient?s medical condition, treatment plan and prognosis.? Medical team informed patient?s family that CT results revealed that the patient has a bone infection.? Infection to be treated by IV antibiotic course.? Medical team relayed that patient is poor candidate for surgery in regards to sacral wound.? In addition, hemoglobin level decreasing.? Identification of bleeding source would require colonoscopy procedure.? Speech evaluation today assessed that the patient is at high risk for aspiration.? Following review of concerns, medical team discussed with family options of pursing full treatment vs transiting patient to hospice services.? Undersigned informed family that transition to hospice services would cease aggressive form of treatment (PEG insertion, PICC line, Colonoscopy).? Undersigned relayed to family that hospice services can be provided at home or at SNF if facility has a designated hospice bed.? Family requesting time to give response back to ROAD MIXER OPERATOR.? ROAD MIXER OPERATOR to update residential team once decision has been made.? Bedside nurse provided with update.
--- NOTE | 2024-09-06 12:51 | ESPR_ITS ---
Documentation for date of: 09/06/24 Subjective Subjective Brief History: 73M with developmental delay, chronic anemia, hypothyroidism, periodontitis who was admitted with AMS and is being treated for pneumonia. Pt additionally noted to have a sacral decubitus ulcer for which general surgery is consulted. Today pt had an REAR LOAD TRUCK DRIVER for hypoxia, he is awaiting CT to evaluate the ulcer Narrative: No acute changes, primary team held goals of care discussion and family is considering transition to hospice care Exam Vital Signs Temp Pulse Resp BP Pulse Ox O2 Del Method O2 Flow Rate 97.1 F 91 20 91/74 100 Nasal Cannula 1 09/06/24 12:00 09/06/24 12:35 09/06/24 12:35 09/06/24 12:00 09/06/24 12:35 09/06/24 12:00 09/06/24 12:35 FiO2 5.0 09/06/24 12:00 Constitutional Constitutional: no acute distress Routine Respiratory Exam Respiratory: Present no resp distress Routine Back/Spine/Pelvis Exam Comments: Sacral decubitus ulcer with minimal fibrinous tissue, no purulence or drainage Results Results: Laboratory Laboratory results: results reviewed Assessment & Plan Plan 73M with developmental delay, chronic anemia, hypothyroidism, periodontitis who was admitted with AMS and is being treated for pneumonia, additionally noted to have a chronic sacral decubitus ulcer. On exam the wound has fibrinous tissue but no jennifer necrotic tissue, can likely see some improvement with continued wound care Daily wound care with Dakins per low altitude air defense officer instructions Please reconsult as needed
--- NOTE | 2024-09-06 15:06 | PC.SS ---
Rounding Note: Goals of care discussion held today. Family to make decision on pursuing hospice.
--- NOTE | 2024-09-06 16:31 | ESPR_ITS ---
<Statement entered by Azalia Bolaños MD - 09/06/24 17:14> I discussed with and supervised my co-resident involved in the care of this patient. I agree with the assessment and plan as documented above. Patient seen and examined at bedside. He is more awake, alert, can articulate words better. Able to swallow thick nectar consistency but is at high risk due to delayed swallowing. CT abd/p showed osteomyelitis of the sacrum and coccyx. Currently on IV antibiotics. Goals of care discussion with SW and family at bedside. May consider PEG tube for nutrition and PICC line for antibiotics for osteomyelitis however patient not a surgical candidate and high risk of patient pulling out lines - he is on mitten restraints currently. Explained to patient treatment options above versus considering hospice. Family leaning towards hospice, and will confirm decision later today. Azalia Bolaños MD PGY-3 Documentation for date of: 09/06/24 Subjective Subjective Interval history: Patient was seen at bedside this morning. No overnight events. Patient had abdomen/pelvis CT today done which did show the patient has osteomyelitis of fifth sacral segment and all coccygeal segments. Patient did not have any complaints today and his hemoglobin was 6.8, repeat was 8.1. Increase patient's free water flushes with his tube feeds to 75 cc/h given that Platelets 148 from 146 yesterday. Goals of care discussion was done today at 11:15 AM with Meenakshi Flores, medical power of in school suspension aide for the patient, Eliazar Phillips, caregiver, Herson and Janett, social workers. Spoken to the detailed about patient's current condition and his guarded prognosis. Explained to the family that patient has an increased risk of aspiration and that at this time he would require a PEG tube to get the proper nourishment that he needs due to his failure to thrive. Given that the patient was found to have osteomyelitis and he is a very poor candidate for surgery the next step will be placing PICC line or IV antibiotics. Also explained to the family that patient has been pulling on the lines as well as his NG tube which makes it unsafe for patient to have PEG tube and even a PICC line. All this was explained to the family was told him in the was not even sure if patient at this time could even tolerate these multiples procedures given that he has many comorbidities. Patient's family was understanding and had multiple questions which were addressed and stated that they were coming to a decision concerning hospice as they also stated that this would be a lot for the patient at this time. Will wait for patient's family decision before morning for any further aggressive intervention at this time. Exam Vital Signs Temp Pulse Resp BP Pulse Ox O2 Del Method O2 Flow Rate 97.1 F 63 20 87/52 L 100 Nasal Cannula 1 09/06/24 12:00 09/06/24 14:44 09/06/24 12:35 09/06/24 14:44 09/06/24 12:35 09/06/24 12:00 09/06/24 12:35 FiO2 5.0 09/06/24 12:00 Narrative Exam Physical exam very limited due to patient's medical condition and mental status General: low barely audible speech, but hard to understand, cachectic, thin, frail elderly on NC 3L Eyes: Pupils constricted, but reactive to light, EOMI. Anicteric Ears: no visible ear discharge Nose: No nasal discharge. Mouth/Throat: Dry mucous membranes, no redness, no lesions. Neck: Neck supple, no cervical lymphadenopathy. Lungs: Decreased breath sounds JANET still present, No accessory muscle use. Cardio: Normal S1/S2, regular rhythm, no murmurs, no JVD or carotid bruits. Abdomen: Soft, non-tender, no palpable masses, peristalsis present, no guarding or rebound. Extremities: Symmetrical, no significant deformities, no peripheral edema , non-tender, peripheral pulses presents. Skin: No rashes, no lesions, warm to touch. multiple bruises throughout the body including in L side forehead, clean dressing over abrasions and ulcer. Neuro: Difficult to assess due to patient's current mental status and medical condition, able to follow simple commands, has been able to communicate, able to trace with eyes Objective Labs 09/07/24 08:15 09/07/24 04:14 Labs: Laboratory Results - last 24 hr 09/06/24 09/06/24 09/06/24 05:45 07:15 10:00 WBC 8.6 RBC 2.45 L Hgb 6.8 L* 8.1 L Hct 22.0 L 26.1 L MCV 90 MCH 27.8 MCHC 30.9 L RDW Std Deviation 59.7 H Plt Count 282 D Neut % (Auto) 87 H Lymph % (Auto) 8 L [place] % (Auto) 3 Eos % (Auto) 1 Baso % (Auto) 0 Neut # (Auto) 7.5 Lymph # (Auto) 0.7 L [place] # (Auto) 0.2 Eos # (Auto) 0.1 Baso # (Auto) 0.0 Immature Gran # (Auto) 0.06 H Absolute Nucleated RBC 0.00 Immature Gran % 1 H Nucleated RBC % 0 Sodium 148 H Potassium 4.1 D Chloride 121 H* Carbon Dioxide 21.0 Anion Gap 6 L BUN 27 H Creatinine 1.1 Estim Creat Clear Calc 34.5 L eGFR > 60 BUN/Creatinine Ratio 25 H Glucose 104 Calculated Osmolality 299 H Calcium 8.2 L Corrected Calcium 9.2 Phosphorus 2.9 Magnesium 2.2 Total Bilirubin 0.3 AST 12 ALT < 7 L Alkaline Phosphatase 75 Total Protein 5.0 L Albumin 2.7 L Globulin 2.3 Albumin/Globulin Ratio 1.2 ABG Interpretation ABG results: 09/03/24 12:15 ABG pH 7.33 L ABG pCO2 36 ABG pO2 55 L* ABG HCO3 19 L ABG O2 Saturation 84 L ABG Base Excess -7 L Quality Measures Quality Measures none Advance care planning discussed with:: patient, legal surragate and other (caregiver) Assessment & Plan Assessment Current Active Medications: Generic Name Dose Route Start Last Admin Trade Name Freq PRN Reason Stop Dose Admin Acetaminophen 650 mg 09/01/24 22:48 Acetaminophen 325 Mg Tablet PO 10/01/24 22:47 Q6H PRN PAIN SCALE 1-3 (mild Acetaminophen 650 mg 09/01/24 22:48 Acetaminophen 325 Mg Tablet PO 10/01/24 22:47 Q6H PRN Fever >100 Acetylcysteine 3 ml 09/03/24 12:32 09/06/24 09:37 Acetylcysteine Rt Elvie 10% 4 Ml Nebu INH 10/03/24 12:31 3 ml Q6HRRT PRN Administration SOB or crackles Protocol Albuterol/Ipratropium 3 ml 09/02/24 01:00 09/06/24 12:35 Albuterol/Ipratropium (Duoneb) Rt Elvie 3 Ml Nebu INH 10/02/24 00:59 3 ml Q6HRRT BETY Administration Albuterol/Ipratropium 3 ml 09/06/24 09:33 09/06/24 09:37 Albuterol/Ipratropium (Duoneb) Rt Elvie 3 Ml Nebu INH 10/06/24 09:32 3 ml Q2HR PRN Administration SHORTNESS OF BREATH OR WHEEZE Protocol Enoxaparin Sodium 30 mg 09/02/24 09:00 09/06/24 09:24 Enoxaparin Sod Inj 30 Mg/0.3 Ml Syringe SC 09/16/24 08:59 30 mg QDAY BETY Administration Protocol Piperacillin/Tazobactam/Dextrose 50 mls @ 12.5 mls/hr 09/02/24 09:00 09/06/24 09:23 Zosyn IV 09/09/24 08:59 12.5 mls/hr BID BETY Administration Protocol Doxycycline Hyclate 100 mg/ 100 mls @ 100 mls/hr 09/02/24 09:00 09/06/24 09:23 Sodium Chloride IV 09/08/24 22:59 100 mls/hr BID BETY Administration Levetiracetam 500 mg 09/05/24 09:45 09/06/24 09:25 Levetiracetam Liqd 500 Mg/5 Ml Udc NG 10/01/24 23:14 500 mg BID BETY Administration Levothyroxine Sodium 25 mcg 09/03/24 06:00 09/06/24 05:17 Levothyroxine Sodium 25 Mcg Tablet NG 10/03/24 05:59 25 mcg ACBR BETY Administration Midodrine 10 mg 09/04/24 14:00 09/06/24 14:44 Midodrine 5 Mg Tablet PO 10/04/24 13:59 10 mg TID BETY Administration Multivitamins 1 tab 09/05/24 09:15 09/06/24 09:24 Multivitamins Tablet PO 10/05/24 09:14 1 tab QDAY BETY Administration Pantoprazole Sodium 40 mg 09/02/24 09:00 09/06/24 09:24 Pantoprazole Inj 40 Mg Vial IVP 10/02/24 08:59 40 mg QDAY BETY Administration Sennosides 1 tab 09/06/24 09:00 09/06/24 09:24 Senna Tablet PO 10/06/24 08:59 1 tab QDAY BETY Administration Protocol Sodium Hypochlorite 473 ml 02/12/25 15:21 Sod Hypochlorite / Str 473 Ml Btl IRRIG 10/04/24 20:59 HS BETY Thiamine HCl 100 mg 09/03/24 10:30 09/06/24 09:25 Thiamine Inj 100 Mg/Ml Vial 2 Ml IVP 09/10/24 10:29 100 mg QDAY BETY Administration Plan 73-year-old male with past medical history of developmental delay, anxiety, hypothyroidism, GERD, chronic anemia, and chronic periodontitis was admitted to the hospital on 09/01/2024 due to acute encephalopathy in the setting of sepsis likely 2/2 CAP vs Sacral ulcer. #Goals of care discussion Goals of care discussion was done today at 11:15 AM with Meenakshi Flores, medical power of in school suspension aide for the patient, Eliazar Phillips, caregiver, Liz, social workers. Spoken to the detailed about patient's current condition and his guarded prognosis. Explained to the family that patient has an increased risk of aspiration and that at this time he would require a PEG tube to get the proper nourishment that he needs due to his failure to thrive. Given that the patient was found to have osteomyelitis and he is a very poor candidate for surgery the next step will be placing PICC line or IV antibiotics. Also explained to the family that patient has been pulling on the lines as well as his NG tube which makes it unsafe for patient to have PEG tube and even a PICC line. All this was explained to the family was told him in the was not even sure if patient at this time could even tolerate these multiples procedures given that he has many comorbidities. Patient's family was understanding and had multiple questions which were addressed and stated that they were coming to a decision concerning hospice as they also stated that this would be a lot for the patient at this time. Will wait for patient's family decision before morning for any further aggressive intervention at this time. On 09/04/2024 at 10:45 AM I spoke with the patient's medical power of in school suspension aide, Meenakshi Flores, who is the patient's cousin to give her an update about the patient's current condition at this time. Given the patient has been having multiple rapids and that his condition is very guarded at this time. Discussed her wishes concerning the patient's CODE STATUS as patient's low body weight will most likely create more complications during chest compressions. After an extensive discussion about the patient's CODE STATUS and what it meant to be full code versus DNR/DNI, she decided to switch the patient from full code to DNR/DNI. #Acute encephalopathy likely in the setting of #Sepsis, resolved #Community-acquired pneumonia #Sacral ulcer #Osteomyelitis fifth sacral and all coccygeal segments #Hypotension ?Patient came in initially with altered mental status and deterioration from his baseline. ?Patient is still unable to follow commands and is nonverbal. ?Patient has a pressure ulcer -qSOFA 2 points ?Encephalopathy could be likely in the setting of infectious versus metabolic etiology ?Head CT was unremarkable ? Chest x-ray did not show right pneumonia ?ESR 127 and CRP 20.5 ? blood and urine cultures negative ?abdomen/pelvis CT showed osteomyelitis of fifth sacral and coccygeal segments. Plan: ? Will continue with Zosyn and doxycycline [to 09/01/2024-] -Midodrine 10mg TID ?N.p.o. for now given he cannot follow commands ? Aspiration precautions -General surgery consulted, appreciate recommendations. ? Will continue to monitor #Hypoosmolar hyperchloremic hypernatremia ? On admission patient had a sodium of 163 and chloride of 126 ? Sodium 148 and chloride 121 currently ? This could be likely in the setting of dehydration and malnutrition Plan: ? free water flushes 75cc/hr ?Will continue monitor #NEGRITO, resolved ? Patient came in with a creatinine of 2.3 and his baseline is 1.1 ? Creatinine 1.1 today ? Most likely prerenal in the setting of dehydration Plan: ? Discontinued IV fluids ? Avoid nephrotoxic agents ? Renally dose medication ? Will continue to monitor #Cachexia #Failure to thrive #Severe dehydration #Severe protein deficit and malnutrition ? Patient is very cachectic ? His electrolyte imbalances as well as his acute encephalopathy could be related to his cachexia and severe dehydration Plan: ?Jevity tube feeds for now -Multivitamin qday -thiamine 100mg qday 7 days [09/03-] ? Refer to registered dietitian #Hyperchloremic metabolic acidosis ? Bicarb 21 and chloride 121 ? DDx RTA Plan: -Urine electrolytes ? Will continue to monitor #Hx of chronic anemia ? Hemoglobin 8.1 today ? Patient's base hemoglobin is around 9-10 ? Drop in hemoglobin today most likely secondary to hemodilution Plan: -1 PRBC ready to transfuse ?Will transfuse if hemoglobin less than 7 ? Will continue to monitor #Hx of seizures #Hx of developmental delay #Hx of anxiety ? Will continue patient's Keppra ? Will hold off on patient's risperidone for now given his acute encephalopathy. #Hx of hypothyroidism ? Resume patient's levothyroxine 25 mcg Disposition: Patient seen in telemetry pending blood cx and urine cx, continue Abx for sepsis 2/2 PNA vs pressure ulcer, pending FOBT and family decision on management. Diet: Jevity GI prophylaxis: protonix DVT prophylaxis: Lovenox Code: DNR/DNI Case disclosed with Attending Dr. Kapadia and my senior Dr. Bolaños PGY3 Lee Chauhan PGY1 Attending Provider Attestation/Addendum I have discussed and was present for the essential components of the history, physical examination, diagnosis, and treatment plan with the resident. I agree with the patient's care as documented by the resident and amended herein by me. Kyle Kapadia DO. Although this document has been carefully reviewed, there may still be some phonetic and other typographical errors. These errors are purely grammatical due to imperfections in the software program and should not be construed in any way to compromise the substance of the patient's medical care during this visit.
--- NOTE | 2024-09-06 17:29 | PC.SS ---
STAFF DEVELOPMENT COORDINATOR conducted phone contact with patient's medical surrogate decision maker to discuss decision on hospice. Medical decision maker requesting more time to decide on whether to pursue hospice services. STAFF DEVELOPMENT COORDINATOR updated resident.
--- NOTE | 2024-09-06 22:48 | XR_ITS ---
Examination: CT abdomen and pelvis without contrast. Coronal 3-D reconstructions. Sagittal 2-D reconstructions. Date and time of exam:September 06, 2024 0840 hours INDICATIONS: History soft tissue ulcer in the sacral region with sinus tract CTDI: vol (mGy): 5.55 DLP: (mGycm): 7 Technique: Axial images of the abdomen have been obtained, 3 mm slice thickness Intravenous contrast material has not been administered. Low dose protocols were performed. One or more of the following dose reduction techniques were used; automated exposure control, adjustment of the mA and/or KV according to patient size, use of iterative reconstruction technique. Findings: Bibasilar pneumonia with small bilateral pleural effusions No focal liver or splenic lesion No gallstones No pancreatic mass No hydronephrosis Aorta normal size Moderate air and stool throughout the colon No obstruction No diverticulitis No abdominal or pelvic abscess Abundant air and stool in the rectum Urinary Jin catheter with air in the urinary bladder, urinary bladder wall thickening Transverse prostate dimension 4.7 cm Soft tissue defect posterior to the lower sacrum and coccyx with jennifer cortical bone destruction involving the fifth sacral segment and all of the coccygeal segments Lack of intravenous contrast limits soft tissue assessment, no fluid-filled drainable abscess is depicted IMPRESSION: Soft tissue defect posterior to the lower sacrum and coccyx Osteomyelitis fifth sacral segment and all coccygeal segments
[2024-09-07] VITALS (19 sets, daily range): BP systolic 91–129; BP diastolic 43–77; PULSE 67–120; RESP 14–96; TEMP 36–36.9; O2SAT 93–100; BMI 14.9
[2024-09-07] MEDS: ALBUTEROL/IPRATROPIUM (Duoneb) RT SOL 3 ML NEBU INH ×4 (00:20→18:20)
[2024-09-07] MEDS: SOD HYPOCHLORITE 1/4 STR 473 ML BTL IRRIG ×2 (01:00→21:29)
[2024-09-07 05:35] LABS: Basophils % (Auto) 0 % (0-2.5); Eosinophils # (Auto) 0.2 Thou/mm3 (0.0-0.5); Eosinophils % (Auto) 2 % (0-10); Lymphocytes % (Auto) 10 % (10-50); Mean Corpuscular Hemoglobin 27.8 pg (25.0-35.0); Mean Corpuscular Volume 90 fL (80-100); Monocytes % (Auto) 3 % (0-12); Neutrophils # (Auto) 6.7 Thou/mm3 (1.8-7.7); Nucleated Red Blood Cell % 0 /100 WBC (0)
[2024-09-07 05:37] LABS: Immature Granulocytes % (Auto) 1 % (0-0); Immature Granulocytes Auto 0.04 Thou/mm3 (0.00-0.00); Lymphocytes # (Auto) 0.8 Thou/mm3 (1.0-4.8); Mean Corpuscular HGB Conc 30.9 g/dl (31.0-37.0); Monocytes # (Auto) 0.3 Thou/mm3 (0.0-0.8); Neutrophils % (Auto) 84 % (37-80); Nucleated Red Blood Cell # 0.02 Thou/mm3 (0.00-0.00); Platelet Count 356 Thou/mm3 (140-440); RDW Standard Deviation 59.2 fL (35.1-43.9); Red Blood Count 2.45 Miln/mm3 (4.50-5.90)
[2024-09-07 05:43] LABS: Hemoglobin 6.8 g/dL (13.5-16.0)
[2024-09-07] MEDS: LEVOTHYROXINE SODIUM 25 MCG TABLET NG (06:36)
[2024-09-07] MEDS: MIDODRINE 5 MG TABLET 10 MG PO ×3 (06:36→21:29)
[2024-09-07 06:38] LABS: Alanine Aminotransferase 10 U/L (10-49); Albumin, Serum 2.7 gm/dL (3.4-4.8); Albumin/Globulin Ratio 1.1 (1.2-2.2); Alkaline Phosphatase 69 U/L (46-116); Anion Gap 11 (7-16); Aspartate Amino Transferase 11 U/L (0-34); BUN/Creatinine Ratio 23 Ratio (12-20); Bilirubin,Total 0.2 mg/dL (0.3-1.2); Blood Urea Nitrogen 25 mg/dL (9-23); Calcium 8.5 mg/dL (8.3-10.6); Calcium (Corrected) 9.5 mg/dL (8.5-10.1); Carbon Dioxide 22.9 mMol/L (20.0-31.0); Chloride 116 mMol/L (98-107); Creatinine (Component) 1.1 mg/dL (0.6-1.3); Estimated Creatinine Clearance 35.7 mL/min (>60); Globulin 2.4 gm/dL (2.3-3.5); Glucose 98 mg/dL (74-106); Osmolality,Calculated 302 (275-295); Phosphorous 2.9 mg/dL (2.4-5.1); Potassium 3.7 mMol/L (3.4-5.1); Sodium 150 mMol/L (136-145); Total Protein 5.1 gm/dL (5.7-8.2); eGFR > 60 See Note
[2024-09-07] MEDS: PANTOPRAZOLE INJ 40 MG VIAL IVP (08:39)
[2024-09-07] MEDS: THIAMINE INJ 100 MG/ML VIAL 2 ML IVP (08:40)
[2024-09-07] MEDS: levETIRAcetam LIQD 500 MG/5 ML UDC NG ×2 (08:40→21:28)
[2024-09-07] MEDS: MULTIVITAMINS TABLET 1 TAB PO (08:40)
[2024-09-07] MEDS: LACTULOSE SYRUP 20 GM/30 ML UDC PO (08:40)
[2024-09-07] MEDS: SENNA TABLET 1 TAB PO (08:40)
[2024-09-07] MEDS: DOXYCYCLINE INJ 100 MG in SODIUM CHLORIDE 0.9% (P) 100 ML IV ×2 (08:41→21:28)
[2024-09-07] MEDS: ENOXAPARIN SOD INJ 30 MG/0.3 ML SYRINGE SC (08:41)
[2024-09-07 09:15] LABS: Hematocrit 20.1 % (41.0-53.0); Hemoglobin 6.4 g/dL (13.5-16.0)
[2024-09-07] MEDS: cefTRIAXone 2 GM in SODIUM CHLORIDE 0.9% (P) 100 ML IV (10:49)
--- NOTE | 2024-09-07 10:50 | PC.SS ---
STOCKROOM SUPERVISOR confirmed that [facility] hospice will reach out to patient's family to provide overview on hospice services. STOCKROOM SUPERVISOR informed by patient's caregiver request for hospice follow up. [facility] hospice on rotation for today. Hospice decison remains pending.
[2024-09-07] MEDS: cefTRIAXone/D5w 2gm 2 GM/50 ML BAG IV (11:07)
--- NOTE | 2024-09-07 11:43 | ESPR_ITS ---
<Statement entered by Azalia Bolaños MD - 09/07/24 11:50> I discussed with and supervised my co-resident involved in the care of this patient. I agree with the assessment and plan as documented above. Patient seen and examined at bedside. He is awake, answering questions. Labs show anemia at 6.8. Family agreeable to RBC transfusion. Will get FOBT. Pending family decision for hospice versus pursuing PICC line for ostemyelitis, PEG for nutrition and severe failure to thrive. Azalia Bolaños MD PGY-3 Documentation for date of: 09/07/24 Subjective Subjective Interval history: Patient was seen at bedside this morning. No overnight events. Patient's hemoglobin did drop to 6.8 in the morning on repeat it was 6.4. There was a regular type and screen therefore ordered a PRBC after spoke with patient's medical power of sports attorney Meenakshi Flores for consent to transfuse blood products. Registered nurse, Daphnie, was witnessed during the conversation. Will transfuse 1 unit of PRBCs today and have a post H&H. Patient's family is still thinking about the session of they would like to proceed with full treatment or if they would like to pursue hospice at this time. Will continue to monitor, will discuss with family need for PICC line and possible PEG tube as patient will require these at this time. Exam Vital Signs Temp Pulse Resp BP Pulse Ox O2 Del Method O2 Flow Rate 97.7 F 72 18 98/52 L 95 Room Air 0.5 09/07/24 08:00 09/07/24 08:00 09/07/24 08:00 09/07/24 08:00 09/07/24 08:00 09/07/24 08:00 09/07/24 04:00 FiO2 5.0 09/06/24 16:00 Narrative Exam Physical exam very limited due to patient's medical condition and mental status General: low barely audible speech, but hard to understand, cachectic, thin, frail elderly on NC 3L Eyes: Pupils constricted, but reactive to light, EOMI. Anicteric Ears: no visible ear discharge Nose: No nasal discharge. Mouth/Throat: Dry mucous membranes, no redness, no lesions. Neck: Neck supple, no cervical lymphadenopathy. Lungs: Decreased breath sounds JANET still present, No accessory muscle use. Cardio: Normal S1/S2, regular rhythm, no murmurs, no JVD or carotid bruits. Abdomen: Soft, non-tender, no palpable masses, peristalsis present, no guarding or rebound. Extremities: Symmetrical, no significant deformities, no peripheral edema , non-tender, peripheral pulses presents. Skin: No rashes, no lesions, warm to touch. multiple bruises throughout the body including in L side forehead, clean dressing over abrasions and ulcer. Neuro: Difficult to assess due to patient's current mental status and medical condition, able to follow simple commands, has been able to communicate, able to trace with eyes Objective Labs 09/07/24 08:15 09/07/24 04:14 Labs: Laboratory Results - last 24 hr 09/04/24 09/07/24 09/07/24 06:36 04:14 05:45 WBC 8.0 RBC 2.45 L Hgb 6.8 L* Hct 22.0 L MCV 90 MCH 27.8 MCHC 30.9 L RDW Std Deviation 59.2 H Plt Count 356 D Neut % (Auto) 84 H Lymph % (Auto) 10 Archer % (Auto) 3 Eos % (Auto) 2 Baso % (Auto) 0 Neut # (Auto) 6.7 Lymph # (Auto) 0.8 L Archer # (Auto) 0.3 Eos # (Auto) 0.2 Baso # (Auto) 0.0 Immature Gran # (Auto) 0.04 H Absolute Nucleated RBC 0.02 H Immature Gran % 1 H Nucleated RBC % 0 Sodium 150 H Potassium 3.7 Chloride 116 H Carbon Dioxide 22.9 Anion Gap 11 BUN 25 H Creatinine 1.1 Estim Creat Clear Calc 35.7 L eGFR > 60 BUN/Creatinine Ratio 23 H Glucose 98 Calculated Osmolality 302 H Calcium 8.5 Corrected Calcium 9.5 Phosphorus 2.9 Magnesium 2.0 Total Bilirubin 0.2 L AST 11 ALT 10 Alkaline Phosphatase 69 Total Protein 5.1 L Albumin 2.7 L Globulin 2.4 Albumin/Globulin Ratio 1.1 L Blood Type O Positive Antibody Screen NEGATIVE Crossmatch See Detail See Detail Blood Bank Wristband ID Yes 09/07/24 08:15 WBC RBC Hgb 6.4 L* Hct 20.1 L* MCV MCH MCHC RDW Std Deviation Plt Count Neut % (Auto) Lymph % (Auto) Archer % (Auto) Eos % (Auto) Baso % (Auto) Neut # (Auto) Lymph # (Auto) Archer # (Auto) Eos # (Auto) Baso # (Auto) Immature Gran # (Auto) Absolute Nucleated RBC Immature Gran % Nucleated RBC % Sodium Potassium Chloride Carbon Dioxide Anion Gap BUN Creatinine Estim Creat Clear Calc eGFR BUN/Creatinine Ratio Glucose Calculated Osmolality Calcium Corrected Calcium Phosphorus Magnesium Total Bilirubin AST ALT Alkaline Phosphatase Total Protein Albumin Globulin Albumin/Globulin Ratio Blood Type Antibody Screen Crossmatch Blood Bank Wristband ID ABG Interpretation ABG results: 09/03/24 12:15 ABG pH 7.33 L ABG pCO2 36 ABG pO2 55 L* ABG HCO3 19 L ABG O2 Saturation 84 L ABG Base Excess -7 L Quality Measures Quality Measures none Advance care planning discussed with:: patient and legal surragate Assessment & Plan Assessment Current Active Medications: Generic Name Dose Route Start Last Admin Trade Name Freq PRN Reason Stop Dose Admin Acetaminophen 650 mg 09/01/24 22:48 Acetaminophen 325 Mg Tablet PO 10/01/24 22:47 Q6H PRN PAIN SCALE 1-3 (mild Acetaminophen 650 mg 09/01/24 22:48 Acetaminophen 325 Mg Tablet PO 10/01/24 22:47 Q6H PRN Fever >100 Acetylcysteine 3 ml 09/03/24 12:32 09/06/24 18:20 Acetylcysteine Rt Elvie 10% 4 Ml Nebu INH 10/03/24 12:31 3 ml Q6HRRT PRN Administration SOB or crackles Protocol Albuterol/Ipratropium 3 ml 09/02/24 01:00 09/07/24 07:29 Albuterol/Ipratropium (Duoneb) Rt Elvie 3 Ml Nebu INH 10/02/24 00:59 3 ml Q6HRRT BETY Administration Albuterol/Ipratropium 3 ml 09/06/24 09:33 09/06/24 09:37 Albuterol/Ipratropium (Duoneb) Rt Elvie 3 Ml Nebu INH 10/06/24 09:32 3 ml Q2HR PRN Administration SHORTNESS OF BREATH OR WHEEZE Protocol Enoxaparin Sodium 30 mg 09/02/24 09:00 09/07/24 08:41 Enoxaparin Sod Inj 30 Mg/0.3 Ml Syringe SC 09/16/24 08:59 30 mg QDAY BETY Administration Protocol Doxycycline Hyclate 100 mg/ 100 mls @ 100 mls/hr 09/02/24 09:00 09/07/24 08:41 Sodium Chloride IV 09/08/24 22:59 100 mls/hr BID BETY Administration Ceftriaxone Sodium/Dextrose 2 gm in 50 mls @ 100 mls/hr 09/07/24 11:00 09/07/24 11:07 Rocephin/D5w 2gm IV 09/14/24 10:59 100 mls/hr QDAY BETY Administration Levetiracetam 500 mg 09/05/24 09:45 09/07/24 08:40 Levetiracetam Liqd 500 Mg/5 Ml Udc NG 10/01/24 23:14 500 mg BID BETY Administration Levothyroxine Sodium 25 mcg 09/03/24 06:00 09/07/24 06:36 Levothyroxine Sodium 25 Mcg Tablet NG 10/03/24 05:59 25 mcg ACBR BETY Administration Midodrine 10 mg 09/04/24 14:00 09/07/24 06:36 Midodrine 5 Mg Tablet PO 10/04/24 13:59 10 mg TID BETY Administration Multivitamins 1 tab 09/05/24 09:15 09/07/24 08:40 Multivitamins Tablet PO 10/05/24 09:14 1 tab QDAY BETY Administration Pantoprazole Sodium 40 mg 09/02/24 09:00 09/07/24 08:39 Pantoprazole Inj 40 Mg Vial IVP 10/02/24 08:59 40 mg QDAY BETY Administration Sennosides 1 tab 09/06/24 09:00 09/07/24 08:40 Senna Tablet PO 10/06/24 08:59 1 tab QDAY BETY Administration Protocol Sodium Hypochlorite 473 ml 09/06/24 15:21 09/07/24 01:00 Sod Hypochlorite 1/4 Str 473 Ml Btl IRRIG 10/04/24 20:59 1 applicatio HS BETY Administration Thiamine HCl 100 mg 09/03/24 10:30 09/07/24 08:40 Thiamine Inj 100 Mg/Ml Vial 2 Ml IVP 09/10/24 10:29 100 mg QDAY BETY Administration Plan 73-year-old male with past medical history of developmental delay, anxiety, hypothyroidism, GERD, chronic anemia, and chronic periodontitis was admitted to the hospital on 09/01/2024 due to acute encephalopathy in the setting of sepsis likely / CAP vs Sacral ulcer. #Acute blood loss anemia #GI bleed? #Hx of chronic anemia ? Hemoglobin 6.4 today ? Patient's base hemoglobin is around 9-10 ? Drop in hemoglobin today most likely secondary to hemodilution Plan: -1 PRBC to transfuse, post H/H -Pending FOBT ?Will transfuse if hemoglobin less than 7 ? Will continue to monitor #Acute encephalopathy likely in the setting of #Sepsis, resolved #Community-acquired pneumonia #Sacral ulcer #Osteomyelitis fifth sacral and all coccygeal segments #Hypotension ?Patient came in initially with altered mental status and deterioration from his baseline. ?Patient is still unable to follow commands and is nonverbal. ?Patient has a pressure ulcer -qSOFA 2 points ?Encephalopathy could be likely in the setting of infectious versus metabolic etiology ?Head CT was unremarkable ? Chest x-ray did not show right pneumonia ?ESR 127 and CRP 20.5 ? blood and urine cultures negative ?abdomen/pelvis CT showed osteomyelitis of fifth sacral and coccygeal segments. -Zosyn [09/01-09/07] Plan: ? Will continue with doxycycline [to 09/01/2024-] and added rocephin 2g qdya [09/07/2024-] -Midodrine 10mg TID ?N.p.o. for now given he cannot follow commands ? Aspiration precautions -General surgery consulted, appreciate recommendations. ? Will continue to monitor #Hypoosmolar hyperchloremic hypernatremia ? On admission patient had a sodium of 163 and chloride of 126 ? Sodium 150 and chloride 116 currently ? This could be likely in the setting of dehydration and malnutrition Plan: ? free water flushes 100cc/hr ?Will continue monitor #NEGRITO, resolved ? Patient came in with a creatinine of 2.3 and his baseline is 1.1 ? Creatinine 1.1 today ? Most likely prerenal in the setting of dehydration Plan: ? Discontinued IV fluids ? Avoid nephrotoxic agents ? Renally dose medication ? Will continue to monitor #Cachexia #Failure to thrive #Severe dehydration #Severe protein deficit and malnutrition ? Patient is very cachectic ? His electrolyte imbalances as well as his acute encephalopathy could be related to his cachexia and severe dehydration Plan: ?Jevity tube feeds for now -Multivitamin qday -thiamine 100mg qday 7 days [09/03-] ? Refer to registered dietitian #Hyperchloremic metabolic acidosis ? Bicarb 22.9 and chloride 116 ? DDx RTA Plan: -Urine electrolytes ? Will continue to monitor #Hx of seizures #Hx of developmental delay #Hx of anxiety ? Will continue patient's Keppra ? Will hold off on patient's risperidone for now given his acute encephalopathy. #Hx of hypothyroidism ? Resume patient's levothyroxine 25 mcg #Goals of care discussion Goals of care discussion was done today at 11:15 AM with Meenakshi Flores, medical power of sports attorney for the patient, Eliazar Phillips, caregiver, Herson and Janett, social workers. Spoken to the detailed about patient's current condition and his guarded prognosis. Explained to the family that patient has an increased risk of aspiration and that at this time he would require a PEG tube to get the proper nourishment that he needs due to his failure to thrive. Given that the patient was found to have osteomyelitis and he is a very poor candidate for surgery the next step will be placing PICC line or IV antibiotics. Also explained to the family that patient has been pulling on the lines as well as his NG tube which makes it unsafe for patient to have PEG tube and even a PICC line. All this was explained to the family was told him in the was not even sure if patient at this time could even tolerate these multiples procedures given that he has many comorbidities. Patient's family was understanding and had multiple questions which were addressed and stated that they were coming to a decision concerning hospice as they also stated that this would be a lot for the patient at this time. Will wait for patient's family decision before morning for any further aggressive intervention at this time. On 09/04/2024 at 10:45 AM I spoke with the patient's medical power of sports attorney, Meenakshi Flores, who is the patient's cousin to give her an update about the patient's current condition at this time. Given the patient has been having multiple rapids and that his condition is very guarded at this time. Discussed her wishes concerning the patient's CODE STATUS as patient's low body weight will most likely create more complications during chest compressions. After an extensive discussion about the patient's CODE STATUS and what it meant to be full code versus DNR/DNI, she decided to switch the patient from full code to DNR/DNI. Disposition: Patient seen in telemetry pending blood cx and urine cx, continue Abx for sepsis 2/2 PNA vs pressure ulcer, pending FOBT and family decision on management. Diet: Jevity GI prophylaxis: protonix DVT prophylaxis: Lovenox Code: DNR/DNI Case disclosed with Attending Dr. Kapadia and my senior Dr. Bolaños PGY3 Lee Chauhan PGY1 Attending Provider Attestation/Addendum I have discussed and was present for the essential components of the history, physical examination, diagnosis, and treatment plan with the resident. I agree with the patient's care as documented by the resident and amended herein by me. Kyle Kapadia DO. Patient seen and evaluated this AM. No acute events overnight, hemoglobin low in the morning, 6.8 and 6.4 respectively, patient was transfused 1 unit, FOBT was ordered however we did get worried that the family did decide on hospice care at this time, Herson social media content specialist notified, likely discharge tomorrow. Although this document has been carefully reviewed, there may still be some phonetic and other typographical errors. These errors are purely grammatical due to imperfections in the software program and should not be construed in any way to compromise the substance of the patient's medical care during this visit.
--- NOTE | 2024-09-07 12:06 | PD.RESEVENT ---
Documentation for date of: 09/07/24 Event Note Event Note: Got a call from Herson social workers, about patient's legal surrogate and caregiver deciding about proceding with hospice. Spoke with Eliazar patient's caregiver who confirmed today that they would like to proceed with hospice at this time, but would still like to have the unit of blood given to the patient. My senior, Dr. Bolaños, confirmed with Minh again about the decision to proceed with the patient on hospice at this time. Will refer to hospice and will likely discharge home with hospice in the next 24 to 48 hours. Case disclosed with Attending Dr. Kapadia and My senior Dr. Bolaños PGY3. Lee Chauhan PGY1
--- NOTE | 2024-09-07 12:17 | PC.SS ---
CLEAN UP HELPER BANQUET contacted patient's family. CLEAN UP HELPER BANQUET spoke to sheet rock installation helper, Eliazar Phillips; to confirm if family has made a decision on hsopice services. Zoo Caretaker confirmed plan to transition the patient home with [facility] hospice. CLEAN UP HELPER BANQUET informed sheet rock installation helper that Dr. Fletcher would be contacted and updated in order for Dr. Fletcher to confirm plan for hospice. Once CLEAN UP HELPER BANQUET receives confirmation from resident, hospice order will be submitted. Zoo Caretaker requesting discharge be scheduled for 09-08-24 to allow family time to arrange resident setting.
--- NOTE | 2024-09-07 12:21 | PC.SS ---
CREDIT COLLECTOR contacted Dr. Fletcher to provide update on conversation with patient's family to transition patient home with hospice. Resident to contact family to confirm plan. Resident to update CREDIT COLLECTOR. Hospice order pending.
--- NOTE | 2024-09-07 13:25 | PC.SS ---
Hospice referral submitted to [facility] on [email or web address] platform. Awaiting response.
--- NOTE | 2024-09-07 15:59 | PC.SS ---
Update: Once patient is discharged home notify [facility]PS staff, Patrizia San; [phone]; with discharge disposition (home with hospice).
[2024-09-07 16:35] LABS: Hematocrit 26.6 % (41.0-53.0)
[2024-09-07 16:36] LABS: Hemoglobin 8.6 g/dL (13.5-16.0)
--- NOTE | 2024-09-07 17:05 | PC.SS ---
Patient's family requesting following forms of DME: oxygen, side table and wheelchair. CULVERT INSTALLER updated [facility] hospice with DME request.
[2024-09-08] VITALS (9 sets, daily range): BP systolic 91–101; BP diastolic 53–61; PULSE 68–116; RESP 13–97; TEMP 36.1–37.2; O2SAT 95–100; BMI 15.3
[2024-09-08] MEDS: ALBUTEROL/IPRATROPIUM (Duoneb) RT SOL 3 ML NEBU INH ×3 (01:50→11:57)
[2024-09-08] MEDS: LEVOTHYROXINE SODIUM 25 MCG TABLET NG (06:06)
[2024-09-08] MEDS: MIDODRINE 5 MG TABLET 10 MG PO (06:06)
--- NOTE | 2024-09-08 07:48 | ESDS_ITS ---
Planned Discharge Date 09/08/24 DS: Providers Provider Date of admission: 09/01/24 22:50 Primary care physician: Physician No Primary/Family Admitting Provider: Poli Ko MD Attending Provider on Admission: Araceli Black DO Consults: 09/01/24 22:53 Referral Registered Dietitian Routine Comment: FTT, no oral intake 3x days Referral Speech Therapy Routine Comment: 09/01/24 23:12 Referral Physical Therapy Routine Comment: Physician Instructions: 09/01/24 23:13 Referral Wound Care Routine Comment: 09/02/24 06:20 Referral Wound Care Routine Comment: Please evaluate wound to coccyx / sacrum 09/02/24 15:24 Consult to General Surgery Routine Comment: Consulting Provider: Sarah Rutherford 09/07/24 12:07 Referral Hospice Routine Comment: Attending Provider on DC: Azalia Bolaños MD Discharging Provider: Azalia Bolaños MD DS: Diagnosis Problem List Completed Was Problem List Reviewed/Reconciled?: Yes Hospital Course Hospital Course Hospital course: Patient is a 73 year old male with past medical history of developmental delay, anxiety, hypothyroidism, GERD, chronic anemia, and chronic periodontitis was admitted to the hospital on 09/01/2024 due to 3 day history of worsening mental status, subjective fever, decreased appetite. Upon evaluation, patient was severely cachetic with a BMI of 15 and hypernatremic at 161. CXR showed diffuse right sided pneumonia. He was admitted for acute encephalopathy in the setting of sepsis due to community acquired pneumonia and stage 4 sacral ulcer. Patient had a complicated hospital stay for acute hypoxic respiratory failure due to his pneumonia, stage 4 sacral ulcer and osteomyellitis of the sacrum and coccyx, severe hypernatremia, acute on chronic anemia requiring blood transfusion, and overall failure to thrive. He was started on IV antibiotics and oxygen for his pneumonia. Due to the extent of the sacral ulcer, general surgery was consulted for I&D, however patient was not a surgical candidate. A CT of the abdomen and pelvis confirmed osteomyelitis of the sacrum and coccyx. Blood and and urine cultures were negative. An NG tube was placed for free water flushes for the hypernatremia and nutrition. Once mentation improved, a swallow evaluation was done. Patient is able to swallow however will overload his mouth and has a delayed swallow, making him high risk of aspiration. Goals of care discussion was held with the patient's caregivers. It was felt that due to his severe failure to thrive, osteomeylitis and mental status, patient would not be a good candidate for a PEG tube for nutrition or PICC line for IV antibiotics for the osteomeylitis because of pulling at lines, nor further workup for a colonoscopy to work up his anemia and potential GI bleed. Family ultimately decided to convert code status to from full code to DNR, and pursue home with hospice for the patient. I have reviewed and discussed the patient's care with my attending, Dr. Kang Bolaños MD PGY-3 #Acute on chronic anemia requiring transfusion #Acute metabolic encephalopathy, resolved #Sepsis secondary to CAP #Stage 4 Sacral Ulcer #Osteomyelitis of the 5th sacral and coccygeal segments #Hypotension requiring midodrine #Hypoosmolar hyperchloremic hypernatremia #NEGRITO, resolved #Cachexia #Failure to thrive #Severe dehydration #Severe protein deficit and malnutrition #Hyperchloremic metabolic acidosis #Hx of seizures #Hx of developmental delay #Hx of anxiety #Hx of hypothyroidism Time Spent with Patient Time attestation: Total time spent providing and/or coordinating discharge services: 35 min Time spent: Greater than 30 minutes Exam Vital Signs Temp Pulse Resp BP Pulse Ox O2 Del Method O2 Flow Rate 96.9 F 81 18 98/55 L 100 Room Air 0.5 09/08/24 03:44 09/08/24 06:36 09/08/24 06:36 09/08/24 06:06 09/08/24 06:36 09/08/24 03:44 09/08/24 03:44 FiO2 5.0 09/08/24 03:44 Narrative Exam Constitutional: Frail, elderly, cachetic male HEENT: NCAT. Vision grossly intact. Mucous membranes dry. NG tube in place. Respiratory: Decreased breath sounds bilaterally Cardiac: RRR. Abdomen: Soft, non-distended, non-tender. No guarding, no rebound. MSK: No B/L LE edema. In mittens. Skin: Warm, dry, intact. Multiple bruises throughout body including L side forehead, clean dressing over abrasions and ulcer Neuro: Awake, alert. Can answer questions with 1-2 word responses. Difficult to assess due to patient's current mental status and medical condition; able to follow simple commands, able to communicate and track with eyes. Discharge Plan Plan Patient Disposition: Home w/HOSPICE Prescriptions/Referrals Prescriptions/Med Rec: New doxycycline hyclate 100 mg capsule 100 mg PO BID 42 Days Qty: 84 0RF Continued risperidone 3 mg Tablet 6 mg PO HS clonazepam 2 mg Tablet 2 mg PO BID PRN (Reason: FOR SEVERE ANXIETY) levothyroxine 25 mcg tablet 25 mcg PO DAILY Rx Instructions: TAKE ON AN EMPTY STOMACH levetiracetam [Roweepra] 500 mg tablet 500 mg PO BID Qty: 60 0RF Referrals: No Primary/Family,Physician [Primary Care Provider] - Patient/Caregiver Discharge Instructions Other Discharge Activity Instructions:: Wound care: 1)Sacrum stage 4: Cleanse with ? st Dakins, pat dry. Fill wound bed with calcium alginate, skin prep to wound edges and secure with allyven dressing BID. 2)Right hip Deep tissue injury: cleanse with wound cleanser, pat dry, apply skin prep and cover with allyven dressing daily 3)Left hip deep tissue injury cleanse with wound cleanser, pat dry, apply skin prep and cover with allyven dressing daily 4)Right posterior shoulder: cleanse with wound cleanser, pat dry, apply skin prep and cover with allyven dressing daily 5)Right knee abrasions ? Open to air and monitor 6)Right elbow skin tear ? Open to air and monitor 7)Right lateral ankle deep tissue injury: cleanse with wound cleanser, pat dry, apply skin prep and cover with allyven dressing daily 8)Left olson abrasion- Open to air and monitor 9)Bilateral buttocks scattered deep tissue injuries: cleanse with wound cleanser, pat dry, apply skin prep and cover with allyven dressing daily. 10)Left lateral ankle stage 2: cleanse with wound cleanser, pat dry, apply skin prep and cover with allyven dressing daily 11)Left forehead abrasion: open to air and monitor 12)Left heel deep tissue injury: cleanse with wound cleanser, pat dry, apply skin prep and cover with allyven dressing daily Negative heel pressure bilaterally 13)Right and left upper extremity- dry abrasions/bruising: open to air and monitor 14)Left lower leg calf scattered abrasions: open to air and monitor 15)Medial back and spine clustered deep tissue injuries: cleanse with wound cleanser, pat dry, apply skin prep and cover with allyven dressing daily Print Language: Guatemalan Stand Alone Forms: Yessenia Award Info., Patient Portal Info Letter Discharge Order Discharge Orders: Discharge (Routine); Ordered 09/08/24 Ordered By: Azalia Bolaños Quality Discharge Quality Measures VTE prophylaxis MD Attestestation MD Attestation I have discussed and was present for the essential components of the discharge history, physical examination, diagnosis, and discharge treatment plan with the resident. I agree with the patient's discharge care as documented by the resident and amended herein by me. Kyle Kapadia DO. Patient was discharged home with hospice care. Although this document has been carefully reviewed, there may still be some phonetic and other typographical errors. These errors are purely grammatical due to imperfections in the software program and should not be construed in any way to compromise the substance of the patient's medical care during this visit.
[2024-09-08] MEDS: DOXYCYCLINE INJ 100 MG in SODIUM CHLORIDE 0.9% (P) 100 ML IV (08:03)
[2024-09-08] MEDS: PANTOPRAZOLE INJ 40 MG VIAL IVP (08:03)
[2024-09-08] MEDS: ENOXAPARIN SOD INJ 30 MG/0.3 ML SYRINGE SC (08:04)
[2024-09-08] MEDS: cefTRIAXone/D5w 2gm 2 GM/50 ML BAG IV (08:04)
[2024-09-08] MEDS: THIAMINE INJ 100 MG/ML VIAL 2 ML IVP (08:04)
[2024-09-08] MEDS: levETIRAcetam LIQD 500 MG/5 ML UDC NG (08:05)
[2024-09-08] MEDS: MULTIVITAMINS TABLET 1 TAB PO (08:05)
[2024-09-08] MEDS: SENNA TABLET 1 TAB PO (08:05)
--- NOTE | 2024-09-08 09:00 | PC.SS ---
Addendum entered by MILDRED lFetcher 09/08/24 14:40: Updated APS staff Felisa Marmolejo in regards to d/c plan. Addendum entered by MILDRED Fletcher 09/08/24 11:13: ETA [facility]. Updated patients bed side nurse, caregiver, Eliazar and [facility]. Addendum entered by MILDRED Fletcher 09/08/24 10:24: SS update: DC orders are in. [facility] confirms to provide patient's DME at their residence by 11am. Arranged transportation via [employer] reference number: [id number]. Pending ETA. Updated bed side nurse Morris. Original Note: SS follow up: plan is to d/c the patient home today with [facility] services. MILDRED spoke with patient's grinder set up operator thread tool, Eliazar Phillips who confirmed the plan. Eliazar is requesting ambulance transport to be arranged on behalf of the patient to the residence listed on facesheet. Eliazar informs they are pending DME delivery from [facility] at this time. Eliazar indicates he and Meenakshi are able to be home to receive the patient upon returning to the residence. SS follow up: contacted [facility] to inform the d/c plan for today. Staff informs they would have patient's DME brought to the residence within the next 2hrs before patient is discharged home. Requested for admissions staff to contact SOCIAL WORK MANAGER to update on discharge time/plan and confirm hospice referral was received. [facility] to contact abstract writer back.
--- NOTE | 2024-09-08 10:43 | PCS.ST ---
Recommend puree/mildly thick liquid diet and ice chips if PO is considered.
[2024-09-12 06:59] LABS: Vitamin B1 (Thiamine)* 12 nmol/L (8-30)
== END 2024-09-08 13:10 | disposition hospice, home (50) | DRG 871 ==
LOC: SERX 23:33 → SERHOLD 23:38 → S2NX 09-02 04:03
PROVIDERS: Nurse Practitioner Family; Student in an Organized Health Care Education/Training Program; Admitting Provider Student in an Organized Health Care Education/Training Program; Emergency Provider Emergency Medicine; Visit Provider Internal Medicine
DX: A41.9 Sepsis, unspecified organism (principal); E43 Unspecified severe protein-calorie malnutrition; J18.9 Pneumonia, unspecified organism; L89.154 Pressure ulcer of sacral region, stage 4; G93.41 Metabolic encephalopathy; J96.01 Acute respiratory failure with hypoxia; E87.0 Hyperosmolality and hypernatremia; R64 Cachexia; Z68.1 Body mass index [BMI] 19.9 or less, adult; N17.9 Acute kidney failure, unspecified; M46.28 Osteomyelitis of vertebra, sacral and sacrococcygeal region; E87.29 Other acidosis; D62 Acute posthemorrhagic anemia; E03.9 Hypothyroidism, unspecified; F41.9 Anxiety disorder, unspecified; E86.0 Dehydration; R62.7 Adult failure to thrive; K05.30 Chronic periodontitis, unspecified; R56.9 Unspecified convulsions; K21.9 Gastro-esophageal reflux disease without esophagitis; E83.39 Other disorders of phosphorus metabolism; E87.8 Other disorders of electrolyte and fluid balance, not elsewhere classified; K59.09 Other constipation; S00.83XA Contusion of other part of head, initial encounter; L89.522 Pressure ulcer of left ankle, stage 2; Z79.890 Hormone replacement therapy; Z79.899 Other long term (current) drug therapy; L89.226 Pressure-induced deep tissue damage of left hip; L89.216 Pressure-induced deep tissue damage of right hip; L89.516 Pressure-induced deep tissue damage of right ankle; L89.626 Pressure-induced deep tissue damage of left heel; S80.211A Abrasion, right knee, initial encounter; S51.011A Laceration without foreign body of right elbow, initial encounter; S80.812A Abrasion, left lower leg, initial encounter; L89.326 Pressure-induced deep tissue damage of left buttock; L89.316 Pressure-induced deep tissue damage of right buttock; S00.81XA Abrasion of other part of head, initial encounter; L89.106 Pressure-induced deep tissue damage of unspecified part of back; I95.9 Hypotension, unspecified; E87.6 Hypokalemia; Z66 Do not resuscitate; Z99.3 Dependence on wheelchair; Z51.5 Encounter for palliative care; W19.XXXA Unspecified fall, initial encounter; X58.XXXA Exposure to other specified factors, initial encounter
CPT/HCPCS: 36415; 36600; 70450; 71045; 74176; 80053; 80178; 81001; 82436; 82607; 82728; 82746; 82803; 83036; 83540; 83550; 83605; 83615; 83690; 83735; 83880; 84100; 84132; 84133; 84145; 84295; 84300; 84425; 84439; 84443; 84484; 85014; 85018; 85025; 85046; 85610; 85652; 85730; 86140; 86850; 86900; 86901; 86923; 87040; 87086; 87205; 87811; 92526; 92610; 93005; 93306; 94640; 96361; 96365; 96366; 96368; 97162; 99285; A9270; J0696; J1650; J2470; J2543; J3411; J3475; J3480; J3490; J7030; J7040; J7050; J7060; J7070; P9016

== ENCOUNTER 2025-02-06 11:52 | Emergency (ER) | payer MEDICARE, MEDICAID, SELFPAY ==
[2025-02-06 11:56] VITALS: BP 100/60; PULSE 89; RESP 18; TEMP 36.9; O2SAT 95
[2025-02-06 12:00] VITALS: PULSE 92; O2SAT 95
--- NOTE | 2025-02-06 12:03 | XR_ITS ---
Examination: AP lateral chest 2 views TECHNIQUE: Portable AP upright lateral chest 2 views Date and time: February 06, 2025 1232 hours Comparison September 04, 2024 INDICATIONS: Congestion beginning 3 days ago. FINDINGS: Diffuse left lung pneumonia Normal heart size Mild vascular congestion IMPRESSION: Diffuse left lung pneumonia
--- NOTE | 2025-02-06 12:04 | PD.EDURI ---
Upper Respiratory Inf. RME/HPI General Chief Complaint: Upper Respiratory Infection Stated Complaint: ILL PERSON Time Seen by Provider: 02/06/25 12:03 Source: EMS Arrival date/time: 02/06/25 11:52 Limitations: other (Patient is nonverbal) RME / HPI RME / HPI Narrative: Patient 74-year-old male who is on hospice was brought in by EMS he stays at a long-term care facility. He was brought here for concerns of chest congestion for 1 day. He does use supplemental oxygen, 3 L by nasal cannula at baseline. His oxygen has maintained at 98%. He is cognitively delayed and provides no history. There is no reports of any fevers. No vomiting, no changes in urine output. No skin changes. There are no other acute complaints. Related Data Home Medications ?Medication ?Instructions ?Recorded ?Confirmed clonazepam 2 mg tablet 2 mg PO BID PRN FOR SEVERE ANXIETY 07/18/21 01/13/22 levothyroxine 25 mcg tablet 25 mcg PO DAILY 07/18/21 01/13/22 risperidone 3 mg tablet 6 mg PO HS 07/18/21 01/13/22 Previous Rx's ?Medication ?Instructions ?Recorded levetiracetam 500 mg tablet 500 mg PO BID #60 tabs 02/07/22 (Roweepra) cephalexin 500 mg capsule 500 mg PO Q8H 7 days #21 caps 02/06/25 Allergies Allergy/AdvReac Type Severity Reaction Status Date / Time lithium Allergy Verified 02/06/25 12:06 Review of Systems Review of Systems Systems Reviewed: All systems reviewed, normal except as documented ED Exam General Limitations: Present other (Patient is nonverbal) General appearance: Present in no apparent distress Head Head exam: Present atraumatic Eye Eye exam: Present normal appearance, PERRL and EOMI ENT ENT exam: Present normal exam, normal oropharynx and mucous membranes moist Neck Neck exam: Present normal inspection, full ROM and trachea midline Chest Chest inspection: Present normal inspection and symmetric chest wall rise Respiratory Respiratory exam: Present normal lung sounds bilaterally Cardiovascular Cardiovascular exam: Present regular rate, normal rhythm and normal heart sounds Abdominal Exam Abdominal exam: Present soft and normal bowel sounds Extremities Exam Extremities exam: Present normal inspection and full ROM Back Exam Back exam: Present normal inspection and full ROM Neurological Exam Neurological exam: Present alert and other (Patient is nonverbal he does make eye contact when spoken to) Psychiatric Psychiatric exam: Present flat affect Skin Skin exam: Present warm, dry, intact and normal color Course Quality Measures none Orders Category Date Time Status Bedside COVID-19 Antigen Test NOW Care 02/06/25 12:36 Active Bedside Influenza A&B Antigen Test NOW Care 02/06/25 12:04 Completed CXR2 [XR chest 2V] Stat Exams 02/06/25 12:03 Completed 2 gm/NS50M IV x1 (ED) Med 02/06/25 14:04 Ordered cefTRIAXone [Rocephin] 2 gm SODIUM CHLORIDE 0.9% (Popper) [Ns 0.9% (P)] 50 ml IV X1 Vital Signs Vital signs: Vital Signs Temperature 98.5 F 02/06/25 11:56 Pulse Rate 89 02/06/25 11:56 Respiratory Rate 18 02/06/25 11:56 Blood Pressure 100/60 02/06/25 11:56 Pulse Oximetry (%) 95 02/06/25 11:56 Oxygen Delivery Method Room Air 02/06/25 11:56 Upper Respiratory Infection MDM Narrative MDM Narrative:: Patient 74-year-old male who is on hospice was brought in by EMS he stays at a long-term care facility. He was brought here for concerns of chest congestion for 1 day. He does use supplemental oxygen, 3 L by nasal cannula at baseline. His oxygen has maintained at 98%. He is cognitively delayed and provides no history. There is no reports of any fevers. No vomiting, no changes in urine output. No skin changes. There are no other acute complaints. Chest x-ray was obtained. Patient has a pneumonia. He is given a dose of ceftriaxone here. He will be discharged with prescription of cephalexin. He may return as needed for any worsening or emergent changes Patient data External records reviewed:: None Clinical information provided by:: EMS Social determinants that could affect healthcare access:: mental health Patient has the following chronic illnesses:: Cognitive delayed, failure to thrive How is presenting disease/condition affected by chronic disease/condition?: exacerbated by Evaluation data The following diagnostics were reviewed and interpreted by me:: radiology exam(s) (Pneumonia present) Lab and/or radiology exams considered but not ordered:: n/a Interpretation Summary: pneumonia Medications / Prescriptions Medications or Prescriptions considered but not ordered:: n/a Medication administrations:: Medication Administration History Ceftriaxone Sodium 2 gm/ (Sodium Chloride) 50 mls @ 100 mls/hr IV X1 ONE Stop: 02/06/25 14:33 see above Consultations Consultation(s) initiated? (list below): No Diagnosis Upper Respiratory Differential Diagnosis: other Most likely diagnosis given after review of the tests above:: pneumonia Admission Indicated Admission indicated?: not indicated Admission Request Was there a request for admission?: No Disposition Plan Disposition Plan: Discharge Discharge Attestation Discharge Attestation: The patient and all family members were given an opportunity to ask questions and understood the discharge instructions. Discharge instructions specifically effects, indications for sooner follow up or return to the emergency department, and the expected course of current diagnosis. Patient condition: Stable Discharge Plan Plan Patient Disposition: HOME (Self Care) Patient condition on transfer: Stable Prescriptions/Referrals Prescriptions/Med Rec: New cephalexin 500 mg capsule 500 mg PO Q8H 7 Days Qty: 21 0RF No Action risperidone 3 mg Tablet 6 mg PO HS clonazepam 2 mg Tablet 2 mg PO BID PRN (Reason: FOR SEVERE ANXIETY) levothyroxine 25 mcg tablet 25 mcg PO DAILY Rx Instructions: TAKE ON AN EMPTY STOMACH levetiracetam [Roweepra] 500 mg tablet 500 mg PO BID Qty: 60 0RF Referrals: No Primary/Family,Physician [Primary Care Provider] - In 1 week Problem List Clinical Impression: Pneumonia Patient/Caregiver Discharge Instructions Education Materials: ED Pneumonia (Adult) Additional Instructions: - Use the provided antibiotic as prescribed. - Please return to the emergency room as needed for any emergent concerns or assistance. Print Language: Indonesian Stand Alone Forms: Yessenia Award Info., Patient Portal Info Letter
--- NOTE | 2025-02-06 12:30 | PC.NURSE ---
PATIENT BIBA FROM HOME FOR POSSIBLE PNEUMONIA. HOME HEALTH NURSE EVALUATED PATIENT TODAY AT HOME AND NOTICED PATIENT HAD COUGH WITH PHLEGM. PATIENT IS BEDBOUND NORMALLY AT HOME AND ON HOSPICE. PATIENT IS ALERT. NONVERBAL. VITAL SIGNS STABLE. PATIENT HAS [employer] CATHETER IN PLACE FROM HOME.
[2025-02-06 14:22] VITALS: BP 117/68; PULSE 78; RESP 15; TEMP 37.1; O2SAT 98
[2025-02-06] MEDS: cefTRIAXone 2 GM in SODIUM CHLORIDE 0.9% (Popper) 50 ML IV (14:34)
--- NOTE | 2025-02-06 15:55 | PC.SS ---
SS follow up note; SS set up transportation for patient through [facility], reference # [id number]. SS sent PCS form and face-sheet through [employer].
--- NOTE | 2025-02-06 16:43 | PC.CC ---
ASW contacted [facility] and was advised that pt P/u ETA 1730.
--- NOTE | 2025-02-06 17:10 | PC.NURSE ---
PATIENT READY FOR DISCHARGE. PATIENT WAITING FOR TRANSPORTATION WHO WILL BE HERE ETA 1730. PATIENT VITALS STABLE; FAMILY AWARE.
[2025-02-06 17:18] VITALS: BP 129/79; PULSE 84; RESP 18; TEMP 37.3; O2SAT 97
== END 2025-02-06 17:30 | disposition home or self-care (01) ==
PROVIDERS: Emergency Provider Emergency Medicine
DX: J18.9 Pneumonia, unspecified organism (principal)
CPT/HCPCS: 71046; 87400; 87811; 96365; 99283; J0696; J7050

== ENCOUNTER → 2025-03-30 | Outpatient (CLI) | payer MEDICARE, MEDICAID, SELFPAY | END | disposition home or self-care (01) | LOC: SWHD 13:10 | PROVIDERS: PCP Physician Assistant; Referring Provider Physician Assistant; Visit Provider Surgery | DX: D64.9 Anemia, unspecified (principal); K21.9 Gastro-esophageal reflux disease without esophagitis; K22.89 Other specified disease of esophagus; R56.9 Unspecified convulsions; F41.9 Anxiety disorder, unspecified; R62.7 Adult failure to thrive; M86.68 Other chronic osteomyelitis, other site; E03.9 Hypothyroidism, unspecified | CPT/HCPCS: 11042; 99212; A9270; G0463 ==

== ENCOUNTER → 2025-04-03 | Outpatient (CLI) | payer MEDICARE, MEDICAID, SELFPAY ==
[2025-04-03 14:43] LABS: Collection Type, Urine Clean Catch; Squamous Epithelial Cell,Urine 0 /hpf (0-5); WBC,Urine 0 /hpf (0-5)
[2025-04-03 17:15] LABS: Alanine Aminotransferase 14 U/L (10-49); Albumin, Serum 3.1 gm/dL (3.4-4.8); Albumin/Globulin Ratio 1.1 (1.2-2.2); Alkaline Phosphatase 87 U/L (46-116); Anion Gap 16 (7-16); Aspartate Amino Transferase 23 U/L (0-34); BUN/Creatinine Ratio 30 Ratio (12-20); Bilirubin,Total < 0.2 mg/dL (0.3-1.2); Blood Urea Nitrogen 27 mg/dL (9-23); Calcium 8.6 mg/dL (8.3-10.6); Calcium (Corrected) 9.3 mg/dL (8.5-10.1); Carbon Dioxide 21.4 mMol/L (20.0-31.0); Chloride 104 mMol/L (98-107); Creatinine (Component) 0.9 mg/dL (0.6-1.3); Globulin 2.9 gm/dL (2.3-3.5); Glucose 138 mg/dL (74-106); Osmolality,Calculated 288 (275-295); Potassium 4.6 mMol/L (3.4-5.1); Sodium 141 mMol/L (136-145); Total Protein 6.0 gm/dL (5.7-8.2); eGFR > 60 See Note
[2025-04-03 17:20] LABS: Bilirubin,Urine Negative (Negative); Blood,Urine 2+ (Negative); Color,Urine Yellow (Lt Yel-Yel); Culture Indicated,Urine Not Indicated; Glucose, Urine Negative (Negative); Ketones,Urine Negative (Negative); Leukocyte Esterase,Urine Positive (Negative); Nitrite,Urine Negative (Negative); PH,Urine 8.0 (5.0-7.0); Protein,Urine 1+ (Neg - Trace); RBC,Urine < 1 /hpf (0-3); Specific Gravity,Urine 1.012 (1.001-1.035); Urobilinogen,Urine Negative mg/dL (0.0-1.0)
[2025-04-03 17:43] LABS: Basophils # (Auto) 0.0 Thou/mm3 (0.0-0.2); Basophils % (Auto) 1 % (0-2.5); Eosinophils # (Auto) 0.4 Thou/mm3 (0.0-0.5); Eosinophils % (Auto) 6 % (0-10); Hematocrit 24.9 % (41.0-53.0); Immature Granulocytes Auto 0.02 Thou/mm3 (0.00-0.00); Lymphocytes # (Auto) 1.9 Thou/mm3 (1.0-4.8); Lymphocytes % (Auto) 27 % (10-50); Mean Corpuscular HGB Conc 28.5 g/dl (31.0-37.0); Mean Corpuscular Hemoglobin 26.0 pg (25.0-35.0); Mean Corpuscular Volume 91 fL (80-100); Monocytes # (Auto) 0.3 Thou/mm3 (0.0-0.8); Monocytes % (Auto) 4 % (0-12); Neutrophils # (Auto) 4.4 Thou/mm3 (1.8-7.7); Neutrophils % (Auto) 62 % (37-80); Nucleated Red Blood Cell # 0.00 Thou/mm3 (0.00-0.00); Nucleated Red Blood Cell % 0 /100 WBC (0); Platelet Count 736 Thou/mm3 (140-440); RDW Standard Deviation 68.7 fL (35.1-43.9); Red Blood Count 2.73 Miln/mm3 (4.50-5.90); White Blood Count 7.0 Thou/mm3 (3.8-10.6)
[2025-04-03 17:44] LABS: Hemoglobin 7.1 g/dL (13.5-16.0)
[2025-04-03 17:45] LABS: Clarity,Urine Cloudy (Clear/Hazy)
== END | disposition home or self-care (01) ==
LOC: SLDO 14:23
PROVIDERS: Referring Provider Surgery; Visit Provider Surgery
DX: D64.9 Anemia, unspecified (principal); E43 Unspecified severe protein-calorie malnutrition
CPT/HCPCS: 36415; 80053; 81001; 85025

== ENCOUNTER 2025-04-04 17:27 | Emergency (ER) | payer MEDICARE, MEDICAID, SELFPAY ==
[2025-04-04] VITALS (11 sets, daily range): BP systolic 96–125; BP diastolic 54–85; PULSE 82–98; RESP 14–22; TEMP 36.1–37.1; O2SAT 93–99; BMI 12.1
--- NOTE | 2025-04-04 18:13 | PD.EDRECHK ---
ED Recheck Abnl Lab Rx-RME/HPI General Chief Complaint: General Adult/Misc Complain Stated Complaint: ABNORMAL LABS Time Seen by Provider: 04/04/25 18:14 Arrival date/time: 04/04/25 17:27 RME / HPI RME / HPI narrative: See MDM for Dr. Ray's HPI documentation. Related Data Home Medications ?Medication ?Instructions ?Recorded ?Confirmed clonazepam 2 mg tablet 2 mg PO BID PRN FOR SEVERE ANXIETY 07/18/21 01/13/22 levothyroxine 25 mcg tablet 25 mcg PO DAILY 07/18/21 01/13/22 risperidone 3 mg tablet 6 mg PO HS 07/18/21 01/13/22 Previous Rx's ?Medication ?Instructions ?Recorded levetiracetam 500 mg tablet 500 mg PO BID #60 tabs 02/07/22 (Roweepra) albuterol sulfate 90 mcg/actuation 2 puff inhalation Q6H PRN 04/05/25 aerosol inhaler shortness of breath or wheezing #8.5 grams azithromycin 500 mg tablet 500 mg PO QDAY 3 days #3 tabs 04/05/25 (Zithromax TRI-SHAD) cefdinir 300 mg capsule 300 mg PO BID #14 caps 04/05/25 levothyroxine 50 mcg tablet 50 mcg PO QDAY #90 tabs 04/05/25 (Synthroid) prednisone 50 mg tablet 50 mg PO QDAY #3 tabs 04/05/25 Allergies Allergy/AdvReac Type Severity Reaction Status Date / Time lithium Allergy Verified 04/04/25 17:55 Review of Systems Review of Systems Systems Reviewed: All systems reviewed, normal except as documented Past Medical History Past Medical History NEUROLOGIC: Positive Seizures CARDIAC: Negative Congestive Heart Failure RESPIRATORY: Negative Chronic Obstructive Pulmonary Disease (COPD) GASTROINTESTINAL: Positive Gastroesophageal Reflux Disease GENITOURINARY: Negative Renal Disease ENDOCRINE: Positive Hypothyroidism; Negative Diabetes Mellitus Type 1 or Diabetes Mellitus Type 2 HEMATOLOGIC: Positive Anemia PSYCHO/SOCIAL: Positive Schizophrenia and Anxiety OTHER HISTORY: Positive Developmental Delay Social History SMOKING STATUS: Unknown if ever smoked ED Exam Narrative Physical exam: See MDM for Dr. Ray's physical exam documentation. Course Quality Measures none Orders Category Date Time Status Bedside COVID-19 Antigen Test NOW Care 04/04/25 18:18 Completed Bedside Influenza A&B Antigen Test NOW Care 04/04/25 18:[address] Screening NOW Care 04/04/25 18:20 Completed EKG (ED ONLY) *Do not use* NOW Care 04/04/25 18:19 Completed Saline [Insert IV] NOW Care 04/04/25 18:18 Completed Transfuse,blood/blood products NOW Care 04/04/25 18:[address] chest abdomen pelvis wo Stat Exams 04/04/25 19:[address] head/brain wo con Stat Exams 04/04/25 18:20 Completed EKG (ED Only) Stat Exams 04/04/25 18:19 Draft US venous doppler LE BI Stat Exams 04/04/25 21:28 Completed XR chest 1V portable Stat Exams 04/04/25 18:19 Completed ABG [Arterial Blood Gas] Stat Lab 04/04/25 19:17 Completed BNP [B-Type Natriuretic Peptide] Stat Lab 04/04/25 18:50 Completed Beta Hydroxybutyrate Stat Lab 04/04/25 18:50 Completed Bilirubin,Direct Stat Lab 04/04/25 18:50 Completed Blood Culture (Lab) Stat Lab 04/04/25 18:50 Received CBC Stat Lab 04/04/25 18:50 Completed CK [Creatine Kinase] Stat Lab 04/04/25 18:50 Completed CMP [Comprehensive Metabolic Panel] Stat Lab 04/04/25 18:50 Completed CRP [C-Reactive Protein] Stat Lab 04/04/25 18:50 Completed D-Dimer Stat Lab 04/04/25 18:50 Completed ESR [Sed Rate (ESR)] Stat Lab 04/04/25 18:50 Completed Free T3 Stat Lab 04/04/25 18:50 Results Free T4 (Free Thyroxine) Stat Lab 04/04/25 18:50 Results Hgb and Hct Post-Transfusion Stat Lab 04/05/25 02:58 Completed Lactate (Lactic Acid) Stat Lab 04/04/25 18:50 Completed Lipase Stat Lab 04/04/25 18:50 Completed Magnesium Stat Lab 04/04/25 18:50 Completed Path Review Blood Smear Stat Lab 04/04/25 18:50 Completed Procalcitonin Stat Lab 04/04/25 18:50 Completed TSH [Thyroid Stimulating Hormone] Stat Lab 04/04/25 18:50 Completed Troponin I Stat Lab 04/04/25 18:50 Completed Troponin I Stat Lab 04/05/25 01:23 Completed Type and Screen Stat Lab 04/04/25 18:50 Completed UA, C/S IF [Urinalysis, C/S if Indicated] Stat Lab 04/04/25 19:59 Completed Urine Culture Stat Lab 04/04/25 19:59 Received prbc [Red Blood Cells] Stat Lab 04/04/25 18:50 Completed Albuterol/Ipratr Rt Elvie [Duoneb Rt Elvie] Med 04/05/25 00:29 Discontinued 3 ml INH X1 ONE Azithromycin Inj [Zithromax Inj] 500 mg Med 04/04/25 22:17 Discontinued Sodium Chloride 0.9% 250 ml [Ns] 250 ml IV X1 MethylPREDNISolone.* [SoluMEDROL Inj] Med 04/05/25 00:29 Discontinued 125 mg IVP X1 ONE Ondansetron Inj [Zofran Inj] Med 04/04/25 18:18 Discontinued 4 mg IVP X1 ONE Sodium Chloride 0.9% 250 ml [Ns] 250 ml Med 04/04/25 18:18 Discontinued IV 500 mls/hr cefTRIAXone/D5w 1gm IV premix [Rocephin/D5w 1gm IV Med 04/04/25 21:26 Discontinued premix] 1 gm in 50 ml IV X1 Vital Signs Vital signs: Vital Signs Temperature 98.8 F 04/04/25 17:32 Pulse Rate 98 04/04/25 17:32 Respiratory Rate 22 H 04/04/25 17:32 Blood Pressure 96/63 04/04/25 17:32 Pulse Oximetry (%) 93 L 04/04/25 17:32 Oxygen Delivery Method Room Air 04/04/25 17:32 Recheck / Abnormal Lab / Rx MDM Narrative MDM Narrative:: This section includes all my notes and documentations, including HPI, PE, and ED course. Justus Ray MD HPI: 74yo male BIBA from home with multiple concerns. Including malaise and fatigue and confusion and decreased hemoglobin. Unable to obtain history from the patient due to underlying AMS with worsening. Family not present. ROS: Unable to obtain from the patient due to current clinical condition. Physical Exam: General: Alert. Severely emaciated. Eyes: Conjunctivae and lids clear. PERRL. EOMI. ENT: No nasal congestion. Neck: Supple. Heart: RRR. Lungs: In mild respiratory distress. Decreased air movement with wheezing and rales. Abdomen: Soft and nontender. Skin: Warm and dry. Neuro: Alert. Cranial nerves II to XII grossly normal. No peripheral motor deficits. I reviewed EMS notes. I reviewed all diagnostic test results. My interpretation of the EKG is sinus rhythm with nonspecific ST-T changes. My interpretation of the chest x-ray is NAD. My review of the CT head report is NAD. My review of the CT chest abdomen pelvis report is COPD and pneumonia and constipation and osteopenia. Blood tests remarkable for Hgb 6.6 and TSH 149.23. ABG showed pH 7.45, PCO2 37, pHCO3 26. UA remarkable for positive leukocyte esterase, 19 RBCs, 53 WBCs. At this point, diagnoses include: AMS (altered mental status) Severe anemia Pneumonia UTI (urinary tract infection) COPD (chronic obstructive pulmonary disease) Hypothyroidism Constipation Osteopenia Treatment here included: Duoneb Solumedrol 125 mg IV Zofran 4 mg IV Rocephin 1 g IV Azithromycin 500 mg IV IV fluid Some improvement noted. I discussed the case with our hospitalist. About the presentation and exam and diagnostics and treatments here. And need of further care in the hospital. Declined to admit the patient. Recommended outpatient care. Discharge Instructions from Dr. Ray printed for you: 1. For severe anemia, Adalberto received 2 units of blood. 2. Zithromax and cefdinir for urinary tract infection and pneumonia. 3. Prednisone to decrease inflammation in the lungs. 4. Albuterol 2 puffs every 4-6 hours as needed for cough or congestion. 5. Synthroid for hypothyroidism. 6. See a private doctor on 04/06/2025 for recheck and further care. Ask to review all test results and official radiology reports, to make sure you receive all necessary follow-ups and monitoring. Ask for help until we are completely better. 7. Seek immediate medical care with worsening or with any concerns. Justus Ray MD Patient data External records reviewed:: [facility] previous records (Per chart review, patient was seen here on 02/06/25 for pneumonia.) Clinical information provided by:: EMS Social determinants that could affect healthcare access:: none Patient has the following chronic illnesses:: developmental delay, anxiety, hypothyroidism, GERD, chronic anemia, and chronic periodontitis How is presenting disease/condition affected by chronic disease/condition?: caused by Evaluation data The following diagnostics were reviewed and interpreted by me:: lab results, radiology exam(s) and EKG tracing(s) (My interpretation of the EKG is: Sinus rhythm (83 bpm) with nonspecific ST-T changes. Justus Ray MD) Lab and/or radiology exams considered but not ordered:: none Interpretation Summary: I reviewed all diagnostic test results. My interpretation of the EKG is sinus rhythm with nonspecific ST-T changes. My interpretation of the chest x-ray is NAD. My review of the CT head report is NAD. My review of the CT chest abdomen pelvis report is COPD and pneumonia and constipation and osteopenia. Blood tests remarkable for Hgb 6.6 and TSH 149.23. ABG showed pH 7.45, PCO2 37, pHCO3 26. UA remarkable for positive leukocyte esterase, 19 RBCs, 53 WBCs. Medications / Prescriptions Medications or Prescriptions considered but not ordered:: none Medication administrations:: Medication Administration History Discontinued Medications Albuterol/Ipratropium (Albuterol/Ipratropium (Duoneb) Rt Elvie 3 Ml Nebu) 3 ml INH X1 ONE Stop: 04/05/25 00:30 Last Admin: 04/05/25 00:51 Dose: 3 ml Documented By: FARNAZ Sodium Chloride (Ns) 250 mls @ 500 mls/hr IV .Q30M ONE Stop: 04/04/25 18:47 Last Infusion: 04/04/25 20:19 Dose: Infused Documented By: Admin: 04/04/25 19:47 Dose: 500 mls/hr Documented By: DT Ceftriaxone Sodium/Dextrose (Rocephin/D5w 1gm Iv Premix) 1 gm in 50 mls @ 100 mls/hr IV X1 ONE Stop: 04/04/25 21:55 Last Infusion: 04/04/25 23:11 Dose: Infused Documented By: Admin: 04/04/25 22:40 Dose: 100 mls/hr Documented By: DT Azithromycin 500 mg/ Sodium (Chloride) 250 mls @ 250 mls/hr IV X1 ONE Stop: 04/04/25 23:16 Last Infusion: 04/05/25 03:53 Dose: Infused Documented By: Admin: 04/05/25 02:35 Dose: 250 mls/hr Documented By: DT Methylprednisolone Sodium Succinate (Methylprednisolone Sod Succ 62.5 Mg/Ml 2ml Vial) 125 mg IVP X1 ONE Stop: 04/05/25 00:30 Last Admin: 04/05/25 02:35 Dose: 125 mg Documented By: DT Ondansetron HCl (Ondansetron Inj 2 Mg/Ml Inj 2 Ml) 4 mg IVP X1 ONE; Protocol Stop: 04/04/25 18:19 Last Admin: 04/04/25 19:48 Dose: 4 mg Documented By: CAIN Treatment here included: Duoneb Solumedrol 125 mg IV Zofran 4 mg IV Rocephin 1 g IV Azithromycin 500 mg IV IV fluid Consultations Consultation(s) initiated? (list below): Yes Consultation #1 (Physician, Specialty, Details): I discussed the case with our hospitalist. About the presentation and exam and diagnostics and treatments here. And need of further care in the hospital. Declined to admit the patient. Recommended outpatient care. Diagnosis Recheck Differential Diagnosis: other (CVA, brain tumor, NH, CHF, COPD, pneumonia, influenza, COVID, UTI, sepsis, dehydration, electrolyte abnormalities) Most likely diagnosis given after review of the tests above:: AMS (altered mental status), Severe anemia, Pneumonia, UTI (urinary tract infection), COPD (chronic obstructive pulmonary disease), Hypothyroidism, Constipation, Osteopenia Admission Indicated Admission indicated?: not indicated Explain why admission is indicated or not indicated:: I discussed the case with our hospitalist. About the presentation and exam and diagnostics and treatments here. And need of further care in the hospital. Declined to admit the patient. Recommended outpatient care. Admission Request Was there a request for admission?: Yes Admission Attestation Admission request attestation: Discussed case with Hospitalist service regarding admission. Discussed patients ED course, exam findings, labs, and radiology results. The Hospitalist [declined] to accept the patient for admission. Disposition Plan Disposition Plan: Discharge Discharge Attestation Discharge Attestation: The patient and all family members were given an opportunity to ask questions and understood the discharge instructions. Discharge instructions specifically effects, indications for sooner follow up or return to the emergency department, and the expected course of current diagnosis. Patient condition: Stable Discharge Plan Plan Patient Disposition: HOME (Self Care) Prescriptions/Referrals Prescriptions/Med Rec: New prednisone 50 mg tablet 50 mg PO QDAY Qty: 3 0RF albuterol sulfate 90 mcg/actuation HFA aerosol inhaler 2 puff inhalation Q6H PRN (Reason: shortness of breath or wheezing) Qty: 8.5 0RF cefdinir 300 mg capsule 300 mg PO BID Qty: 14 0RF azithromycin [Zithromax TRI-SHAD] 500 mg tablet 500 mg PO QDAY 3 Days Qty: 3 0RF levothyroxine [Synthroid] 50 mcg tablet 50 mcg PO QDAY Qty: 90 0RF No Action risperidone 3 mg Tablet 6 mg PO HS clonazepam 2 mg Tablet 2 mg PO BID PRN (Reason: FOR SEVERE ANXIETY) levothyroxine 25 mcg tablet 25 mcg PO DAILY Rx Instructions: TAKE ON AN EMPTY STOMACH levetiracetam [Roweepra] 500 mg tablet 500 mg PO BID Qty: 60 0RF Referrals: Martir Palumbo PA-C [Primary Care Provider] - In 1 week Problem List Clinical Impression: AMS (altered mental status), Severe anemia, Pneumonia, UTI (urinary tract infection), COPD (chronic obstructive pulmonary disease), Hypothyroidism, Constipation, Osteopenia Patient/Caregiver Discharge Instructions Discharge Activity: activity as tolerated Education Materials: ED Anemia Type Not Specified, ED COPD Flare, ED Hypothyroidism, ED Pneumonia (Adult), ED Bladder Infection, Male (Adult) Additional Instructions: Discharge Instructions from Dr. Ray printed for you: 1. For severe anemia, Adalberto received 2 units of blood. 2. Zithromax and cefdinir for urinary tract infection and pneumonia. 3. Prednisone to decrease inflammation in the lungs. 4. Albuterol 2 puffs every 4-6 hours as needed for cough or congestion. 5. Synthroid for hypothyroidism. 6. See a private doctor on 04/06/2025 for recheck and further care. Ask to review all test results and official radiology reports, to make sure you receive all necessary follow-ups and monitoring. Ask for help until we are completely better. 7. Seek immediate medical care with worsening or with any concerns. Print Language: Maldivian Stand Alone Forms: Yessenia Award Info., Patient Portal Info Letter
--- NOTE | 2025-04-04 18:19 | XR_ITS ---
Examination: AP chest single view Technique one AP portable semiupright chest single view Date and time: April 04, 2025, 1829 hrs., Comparison February 06, 2025 Indications: Shortness of breath today. Findings: Normal heart size No pneumonia or pulmonary edema. Old fracture right seventh rib posteriorly Prominent osteopenia Impression: No pneumonia or pulmonary edema
--- NOTE | 2025-04-04 18:19 | EKG_ITS ---
[facility] Test Date: 2025-04-04 Pat Name: MARCELINA HERNANDEZ Department: Room: - Gender: Male Gas Operator: : 1950 Requested By: Justus Avina Order Number: [id number] Reading MD: Justus Avina Measurements Intervals [place] Rate: 83 P: 87 SD: 118 QRS: 41 QRSD: 94 T: 102 QT: 332 QTc: 391 Interpretive Statements SINUS RHYTHM WITH SHORT SD INTERVAL NONSPECIFIC T-WAVE ABNORMALITY Compared to ECG 09/05/2024 09:11:08 Short SD interval now present T-wave abnormality still present /store/S0/[id number].pdf
--- NOTE | 2025-04-04 18:20 | XR_ITS ---
Examination: CT brain head without contrast. 2-D sagittal coronal reconstructions Date and time of exam:April 04, 2025, 2025 hrs. Indications: Altered mental status today CTDI: vol (mGy):44.7 DLP: (mGycm):934 Technique: Multiple CT axial sections of the brain have been obtained, 5 mm slice thickness. Contrast has not been administered. 2-D sagittal, coronal reconstructions have been obtained Low dose protocols were performed. One or more of the following dose reduction techniques were used; automated exposure control, adjustment of the mA and/or KV according to patient size, use of iterative reconstruction technique. Findings: No significant ventricular enlargement. Intra-axial or extra-axial hemorrhage density is not seen. No mass effect or midline shift Basal cisterns are not remarkable. Fourth ventricle is midline. Cranial vault intact. Impression: Negative for acute hemorrhage, mass effect or midline shift Advise clinical correlation follow-up accordingly
[2025-04-04 19:22] LABS: Lactate (Lactic Acid) 1.7 mMol/L (0.4-2.0)
[2025-04-04 19:24] LABS: Base Excess 1 (-3-3); HCO3 26 mEq/L (20-26); Inspired Oxygen, FIO2 21 %; O2 Saturation 97 % (91-98); PCO2 37 mmHg (32.0-48.0); PO2 79 mmHg (83-108); pH, Arterial 7.45 (7.35-7.45)
[2025-04-04 19:25] LABS: Allen Test Performed/OK; Puncture Site Right Radial
[2025-04-04 19:28] LABS: Sed Rate (ESR) 66 mm/hr (0-20)
[2025-04-04 19:31] LABS: Basophils # (Auto) 0.0 Thou/mm3 (0.0-0.2); Basophils % (Auto) 1 % (0-2.5); Eosinophils # (Auto) 0.3 Thou/mm3 (0.0-0.5); Eosinophils % (Auto) 4 % (0-10); Hematocrit 22.2 % (41.0-53.0); Immature Granulocytes Auto 0.02 Thou/mm3 (0.00-0.00); Lymphocytes # (Auto) 1.3 Thou/mm3 (1.0-4.8); Lymphocytes % (Auto) 16 % (10-50); Mean Corpuscular HGB Conc 29.7 g/dl (31.0-37.0); Mean Corpuscular Hemoglobin 25.8 pg (25.0-35.0); Mean Corpuscular Volume 87 fL (80-100); Monocytes # (Auto) 0.3 Thou/mm3 (0.0-0.8); Monocytes % (Auto) 4 % (0-12); Neutrophils # (Auto) 5.8 Thou/mm3 (1.8-7.7); Neutrophils % (Auto) 75 % (37-80); Nucleated Red Blood Cell # 0.00 Thou/mm3 (0.00-0.00); Nucleated Red Blood Cell % 0 /100 WBC (0); Platelet Count 616 Thou/mm3 (140-440); RDW Standard Deviation 65.0 fL (35.1-43.9); Red Blood Count 2.56 Miln/mm3 (4.50-5.90); White Blood Count 7.7 Thou/mm3 (3.8-10.6)
[2025-04-04 19:34] LABS: Beta Hydroxybutyrate 0.0 mmol/L (<0.6)
[2025-04-04 19:41] LABS: B-Type Natriuretic Peptide < 20 pg/mL (0-100)
[2025-04-04 19:43] LABS: Hemoglobin 6.6 g/dL (13.5-16.0)
[2025-04-04] MEDS: SODIUM CHLORIDE 0.9% 250 ML 250 ML 500 ML IV (19:47)
[2025-04-04] MEDS: ONDANSETRON INJ 2 MG/ML INJ 2 ML 4 MG IVP (19:48)
--- NOTE | 2025-04-04 19:49 | XR_ITS ---
Examination: CT chest, without intravenous contrast. CT abdomen, without intravenous contrast. CT pelvis, without intravenous contrast. 2-D sagittal and coronal reconstructions. 3-D reconstructions. Date and time of exam:July 04, 2025, 2027 hrs. Indications: Shortness of breath chest pain abdominal pain today. CTDI vol (mgy) 6.27 DLP (MGycm)420 Technique: Multiple CT images, 3.0 mm slice thickness, obtained chest, abdomen, pelvis, with the high-resolution 64 slice scanner.. Sagittal and coronal 2-D reconstructions are obtained. 3-D reconstructions Low dose protocols were performed. One or more of the following dose reduction techniques were used; automated exposure control, adjustment of the mA and/or KV according to patient size, use of iterative reconstruction technique. Findings: No thoracic aortic aneurysm dilatation Pulmonary artery segments are not enlarged. COPD with multiple areas of airspace destruction Mildly dilated bronchi throughout the lung ayala Mild pneumonia left base Minimal left pleural fluid No pulmonary edema No visualized liver splenic lesion Contracted gallbladder No pancreatic or adrenal mass No renal or ureteral calculi, no hydronephrosis Aorta normal size No pericecal inflammatory change Abundant stool throughout the colon Large amounts of stool in the rectum with thickening the rectal wall Mild prostatomegaly Urinary bladder contracted around a Jin catheter Severe osteopenia with chronic osteoporotic compressions T12 and T10 Moderate to advanced narrowing hip joints Impression: COPD. Diffuse bronchiectasis. Mild pneumonia left base. No renal or ureteral calculi, no hydronephrosis No CT findings of appendicitis or bowel obstruction Large amounts of stool in the rectum with thickening the rectal wall, differential would include proctitis
[2025-04-04 19:58] LABS: Alanine Aminotransferase 10 U/L (10-49); Albumin, Serum 3.4 gm/dL (3.4-4.8); Albumin/Globulin Ratio 1.1 (1.2-2.2); Alkaline Phosphatase 84 U/L (46-116); Anion Gap 10 (7-16); Aspartate Amino Transferase 15 U/L (0-34); BUN/Creatinine Ratio 28 Ratio (12-20); Bilirubin,Direct < 0.1 mg/dL (0.0-0.3); Bilirubin,Total 0.2 mg/dL (0.3-1.2); Blood Urea Nitrogen 25 mg/dL (9-23); C-Reactive Protein 2.1 mg/dL (0.0-0.9); Calcium 8.9 mg/dL (8.3-10.6); Calcium (Corrected) 9.4 mg/dL (8.5-10.1); Carbon Dioxide 26.5 mMol/L (20.0-31.0); Chloride 104 mMol/L (98-107); Creatine Kinase 232 U/L (34-171); Creatinine (Component) 0.9 mg/dL (0.6-1.3); Estimated Creatinine Clearance 34.6 mL/min (>60); Globulin 3.2 gm/dL (2.3-3.5); Glucose 109 mg/dL (74-106); Lipase 24 U/L (12-53); Magnesium 2.2 mg/dL (1.6-2.6); Osmolality,Calculated 284 (275-295); Potassium 4.0 mMol/L (3.4-5.1); Procalcitonin 0.11 ng/ml (0.0-0.49); Sodium 140 mMol/L (136-145); Thyroid Stimulating Hormone 149.23 uIU/mL (0.55-4.78); Total Protein 6.6 gm/dL (5.7-8.2); Troponin I < 0.002 ng/mL (0.0-0.045); eGFR > 60 See Note
[2025-04-04 20:05] LABS: D-Dimer 2530 ng/mL (<600)
[2025-04-04 20:08] LABS: Collection Type, Urine Clean Catch; Squamous Epithelial Cell,Urine 0 /hpf (0-5)
[2025-04-04 20:30] LABS: Bilirubin,Urine Negative (Negative); Blood,Urine 1+ (Negative); Budding Yeast,Urine Present; Clarity,Urine Turbid (Clear/Hazy); Color,Urine Lt-Yellow (Lt Yel-Yel); Glucose, Urine Negative (Negative); Ketones,Urine Negative (Negative); Leukocyte Esterase,Urine Positive (Negative); Nitrite,Urine Negative (Negative); PH,Urine 6.5 (5.0-7.0); Protein,Urine Trace (Neg - Trace); RBC,Urine 19 /hpf (0-3); Specific Gravity,Urine 1.017 (1.001-1.035); Urobilinogen,Urine Negative mg/dL (0.0-1.0); WBC,Urine 53 /hpf (0-5)
[2025-04-04 20:37] LABS: Culture Indicated,Urine Yes
[2025-04-04 21:03] LABS: Path Review Blood Smear Sent to Pathologist
--- NOTE | 2025-04-04 21:28 | XR_ITS ---
Examination: Venous duplex lower extremity sonogram, bilateral. Date and time of exam: April 04, 2025 1012 hrs. Indications: Elevated d-dimer with leg swelling today Technique: Multiple sonographic images of the deep venous system have been obtained. B-mode/2-D grayscale imaging of vascular structures and Doppler spectral analysis (waveforms) and color performed Both legs are examined. Findings: Deep venous systems do not demonstrate abnormal echogenicity. All visualized deep veins exhibit compressibility. All visualized deep veins exhibit augmentation. Impression: Negative for deep vein thrombosis
[2025-04-04] MEDS: cefTRIAXone/D5w 1gm IV premix 1 GM/50 ML BAG IV (22:40)
[2025-04-04 22:48] LABS: Free T4 (Free Thyroxine) 0.42 ng/dL (0.89-1.76)
[2025-04-05] VITALS: BP 115/75; PULSE 82; RESP 16; TEMP 37; O2SAT 97
[2025-04-05 00:07] VITALS: BP 115/60; PULSE 85; RESP 14; TEMP 36.7; O2SAT 93
[2025-04-05] MEDS: ALBUTEROL/IPRATROPIUM (Duoneb) RT SOL 3 ML NEBU INH (00:51)
[2025-04-05 00:55] VITALS: PULSE 80; RESP 18; O2SAT 100
[2025-04-05 01:48] LABS: Troponin I < 0.020 ng/mL (0.0-0.045)
[2025-04-05 02:00] VITALS: BP 120/85; PULSE 85; RESP 16; TEMP 37; O2SAT 98
[2025-04-05] MEDS: MethylPREDNISolone SOD SUCC 62.5 MG/ML 2ML VIAL 125 MG IVP (02:35)
[2025-04-05] MEDS: AZITHROMYCIN INJ 500 MG in SODIUM CHLORIDE 0.9% 250 ML 250 ML 250 MG IV (02:35)
[2025-04-05 02:44] VITALS: BP 111/63; PULSE 82; RESP 14; TEMP 37; O2SAT 97
[2025-04-05 03:07] LABS: Hematocrit 29.7 % (41.0-53.0); Hemoglobin 9.5 g/dL (13.5-16.0)
[2025-04-05 04:00] VITALS: BP 112/70; PULSE 84; RESP 16; TEMP 37; O2SAT 95
[2025-04-05 07:44] LABS: Free T3 1.4 pg/mL (2.3-4.2)
== END 2025-04-05 04:52 | disposition home or self-care (01) ==
PROVIDERS: Emergency Provider Emergency Medicine; PCP Physician Assistant
DX: D64.9 Anemia, unspecified (principal); J44.0 Chronic obstructive pulmonary disease with (acute) lower respiratory infection; J18.9 Pneumonia, unspecified organism; E03.9 Hypothyroidism, unspecified; K59.00 Constipation, unspecified; N39.0 Urinary tract infection, site not specified; M85.89 Other specified disorders of bone density and structure, multiple sites; R41.82 Altered mental status, unspecified; M79.89 Other specified soft tissue disorders; R94.31 Abnormal electrocardiogram [ECG] [EKG]
CPT/HCPCS: 36415; 36430; 36600; 70450; 71045; 71250; 74176; 80053; 81001; 82010; 82248; 82550; 82803; 83605; 83690; 83735; 83880; 84145; 84439; 84443; 84481; 84484; 85014; 85018; 85025; 85379; 85652; 86140; 86850; 86900; 86901; 86923; 87040; 87077; 87086; 87186; 87400; 87811; 93005; 93970; 94640; 96361; 96365; 96366; 96375; 99284; A9270; J0456; J0696; J2405; J2919; J7050; P9016

== ENCOUNTER → 2025-04-26 | Outpatient (CLI) | payer MEDICARE, MEDICAID, SELFPAY | END | disposition home or self-care (01) | LOC: SWHD 09:58 | PROVIDERS: PCP Physician Assistant; Referring Provider Physician Assistant; Visit Provider Student in an Organized Health Care Education/Training Program | DX: L89.154 Pressure ulcer of sacral region, stage 4 (principal); D64.9 Anemia, unspecified; L21.9 Seborrheic dermatitis, unspecified; K22.89 Other specified disease of esophagus; R56.9 Unspecified convulsions; F41.9 Anxiety disorder, unspecified; R62.7 Adult failure to thrive; M86.68 Other chronic osteomyelitis, other site; E03.9 Hypothyroidism, unspecified | CPT/HCPCS: 11043; A9270 ==

== ENCOUNTER → 2025-05-24 | Outpatient (CLI) | payer MEDICARE, MEDICAID, SELFPAY | END | disposition home or self-care (01) | LOC: SWHD 10:58 | PROVIDERS: PCP Physician Assistant; Referring Provider Physician Assistant; Visit Provider Student in an Organized Health Care Education/Training Program | DX: L89.154 Pressure ulcer of sacral region, stage 4 (principal); L89.224 Pressure ulcer of left hip, stage 4; S61.012A Laceration without foreign body of left thumb without damage to nail, initial encounter; X58.XXXA Exposure to other specified factors, initial encounter; D64.9 Anemia, unspecified; L21.9 Seborrheic dermatitis, unspecified; K22.89 Other specified disease of esophagus; R56.9 Unspecified convulsions; F41.9 Anxiety disorder, unspecified; R62.7 Adult failure to thrive; M86.68 Other chronic osteomyelitis, other site; E03.9 Hypothyroidism, unspecified; F99 Mental disorder, not otherwise specified; F20.9 Schizophrenia, unspecified; E46 Unspecified protein-calorie malnutrition | CPT/HCPCS: 99214; A9270; G0463 ==

== ENCOUNTER → 2025-06-26 | Outpatient (CLI) | payer MEDICARE, MEDICAID, SELFPAY | END | disposition home or self-care (01) | PROVIDERS: PCP Physician Assistant; Referring Provider Physician Assistant; Visit Provider Student in an Organized Health Care Education/Training Program | DX: L89.154 Pressure ulcer of sacral region, stage 4 (principal); L89.224 Pressure ulcer of left hip, stage 4; D64.9 Anemia, unspecified; L21.9 Seborrheic dermatitis, unspecified; K22.89 Other specified disease of esophagus; R56.9 Unspecified convulsions; F41.9 Anxiety disorder, unspecified; R62.7 Adult failure to thrive; M86.68 Other chronic osteomyelitis, other site; E03.9 Hypothyroidism, unspecified; F99 Mental disorder, not otherwise specified; F20.9 Schizophrenia, unspecified; E46 Unspecified protein-calorie malnutrition | CPT/HCPCS: 99213; A9270; G0463 ==

== ENCOUNTER → 2025-07-03 | Outpatient (CLI) | payer MEDICARE, MEDICAID, SELFPAY | END | disposition home or self-care (01) | LOC: SWHD 14:23 | PROVIDERS: PCP Physician Assistant; Referring Provider Physician Assistant; Visit Provider Student in an Organized Health Care Education/Training Program | DX: L89.154 Pressure ulcer of sacral region, stage 4 (principal); L89.224 Pressure ulcer of left hip, stage 4; D64.9 Anemia, unspecified; L21.9 Seborrheic dermatitis, unspecified; K22.89 Other specified disease of esophagus; R56.9 Unspecified convulsions; F41.9 Anxiety disorder, unspecified; R62.7 Adult failure to thrive; M86.68 Other chronic osteomyelitis, other site; E03.9 Hypothyroidism, unspecified; F99 Mental disorder, not otherwise specified; F20.9 Schizophrenia, unspecified; E46 Unspecified protein-calorie malnutrition | CPT/HCPCS: 11042; 97597; A9270 ==

== ENCOUNTER → 2025-07-04 | Outpatient (CLI) | payer MEDICARE, MEDICAID, SELFPAY ==
[2025-07-04 10:37] LABS: Collection Type, Urine Clean Catch; Squamous Epithelial Cell,Urine 0 /hpf (0-5)
[2025-07-04 11:38] LABS: Bacteria,Urine 2+; Bilirubin,Urine Negative (Negative); Blood,Urine 3+ (Negative); Color,Urine Yellow (Lt Yel-Yel); Glucose, Urine Negative (Negative); Ketones,Urine Negative (Negative); Leukocyte Esterase,Urine Positive (Negative); Nitrite,Urine Positive (Negative); PH,Urine 7.5 (5.0-7.0); Protein,Urine 1+ (Neg - Trace); RBC,Urine 376 /hpf (0-3); Specific Gravity,Urine 1.018 (1.001-1.035); Urobilinogen,Urine Negative mg/dL (0.0-1.0); WBC,Urine 1593 /hpf (0-5)
[2025-07-04 12:07] LABS: Clarity,Urine Cloudy (Clear/Hazy); Culture Indicated,Urine Yes
== END | disposition home or self-care (01) ==
LOC: SLDO 10:32
PROVIDERS: Referring Provider Hospitalist; Visit Provider Hospitalist
DX: N39.0 Urinary tract infection, site not specified (principal)
CPT/HCPCS: 81001; 87077; 87086; 87186

== ENCOUNTER → 2025-07-10 | Outpatient (CLI) | payer MEDICARE, MEDICAID, SELFPAY | END | disposition home or self-care (01) | LOC: SWHD 12:47 | PROVIDERS: PCP Physician Assistant; Referring Provider Physician Assistant; Visit Provider Student in an Organized Health Care Education/Training Program | DX: L89.154 Pressure ulcer of sacral region, stage 4 (principal); L89.224 Pressure ulcer of left hip, stage 4; D64.9 Anemia, unspecified; L21.9 Seborrheic dermatitis, unspecified; K22.89 Other specified disease of esophagus; R56.9 Unspecified convulsions; F41.9 Anxiety disorder, unspecified; R62.7 Adult failure to thrive; M86.68 Other chronic osteomyelitis, other site; E03.9 Hypothyroidism, unspecified; F99 Mental disorder, not otherwise specified; F20.9 Schizophrenia, unspecified; E46 Unspecified protein-calorie malnutrition | CPT/HCPCS: 11042; A9270 ==

== ENCOUNTER 2025-07-16 11:08 | Emergency (ER) | payer MEDICARE, MEDICAID, SELFPAY ==
[2025-07-16 11:10] VITALS: BP 98/50; PULSE 80; RESP 18; TEMP 36.3; O2SAT 97
--- NOTE | 2025-07-16 11:20 | PD.EDRECHK ---
ED Recheck Abnl Lab Rx-RME/HPI General Chief Complaint: General Adult/Misc Complain Stated Complaint: ABNORMAL LABS Time Seen by Provider: 07/16/25 11:13 Arrival date/time: 07/16/25 11:08 RME / HPI RME / HPI narrative: 74 year old male with history of developmental delay, nonverbal, seizures, hypothyroidism, chronic anemia, chronic periodontitis, GERD presents to the ED BIBA from home for evaluation of low hemoglobin levels. Per medics, family on scene reported receiving a call from PCP today stating his hemoglobin was low and advised he come to the ED for further evaluation and management. Reportedly patient had labs performed recently and had a follow up appointment scheduled today. Per medics, family on scene did not express any other concerns or complaints. Related Data Home Medications ?Medication ?Instructions ?Recorded ?Confirmed clonazepam 2 mg tablet 2 mg PO BID PRN FOR SEVERE ANXIETY 07/18/21 01/13/22 levothyroxine 25 mcg tablet 25 mcg PO DAILY 07/18/21 01/13/22 risperidone 3 mg tablet 6 mg PO HS 07/18/21 01/13/22 Previous Rx's ?Medication ?Instructions ?Recorded levetiracetam 500 mg tablet 500 mg PO BID #60 tabs 02/07/22 (Roweepra) albuterol sulfate 90 mcg/actuation 2 puff inhalation Q6H PRN 04/05/25 aerosol inhaler shortness of breath or wheezing #8.5 grams cefdinir 300 mg capsule 300 mg PO BID #14 caps 04/05/25 levothyroxine 50 mcg tablet 50 mcg PO QDAY #90 tabs 04/05/25 (Synthroid) prednisone 50 mg tablet 50 mg PO QDAY #3 tabs 04/05/25 Allergies Allergy/AdvReac Type Severity Reaction Status Date / Time lithium Allergy Verified 04/04/25 17:55 Review of Systems Review of Systems ROS Unobtainable: unobtainable due to medical condition Past Medical History Past Medical History NEUROLOGIC: Positive Seizures GASTROINTESTINAL: Positive Gastroesophageal Reflux Disease ENDOCRINE: Positive Hypothyroidism HEMATOLOGIC: Positive Anemia PSYCHO/SOCIAL: Positive Schizophrenia and Anxiety OTHER HISTORY: Positive Developmental Delay Social History SMOKING STATUS: Unknown if ever smoked Course Course Course Narrative: 1245h: I spoke with patients POA and conservator, Carina Johnson. I had a detailed and prolonged discussion regarding the patient?s outlook and prognosis. It was explained that, given his current condition, he would likely benefit from comfort measures rather than aggressive treatment. She is in agreement and wishes to proceed with comfort measures only at this time. Plan is for discharge home. 1320h: Patients DOREEN and her significant other are at bedside. I had another long and detailed discussion, answering all questions regarding current findings and patient prognosis as well as hospice and advanced directives. They are in agreement with proceeding with comfort measures and requesting patient be sent home on hospice. Our social science instructor was made aware of families request. Quality Measures none Orders Category Date Time Status Referral Hospice Stat Cons 07/16/25 13:57 Active CBC Stat Lab 07/16/25 11:45 Completed CMP [Comprehensive Metabolic Panel] Stat Lab 07/16/25 11:45 Completed Type and Screen Stat Lab 07/16/25 11:45 Completed Vital Signs Vital signs: Vital Signs Temperature 97.3 F 07/16/25 11:10 Pulse Rate 80 07/16/25 11:10 Respiratory Rate 18 07/16/25 11:10 Blood Pressure 98/50 L 07/16/25 11:10 Pulse Oximetry (%) 97 07/16/25 11:10 Oxygen Delivery Method Room Air 07/16/25 11:10 Pulse ox is 97% on room air which is adequate. Recheck / Abnormal Lab / Rx MDM Narrative MDM Narrative:: Emily Early am scribing for and in the presence of Dr. Gutierrez. Patient data External records reviewed:: [facility] previous records and EMS form Clinical information provided by:: EMS Social determinants that could affect healthcare access:: none Patient has the following chronic illnesses:: developmental delay, nonverbal, seizures, hypothyroidism, chronic anemia, chronic periodontitis, GERD How is presenting disease/condition affected by chronic disease/condition?: exacerbated by Evaluation data The following diagnostics were reviewed and interpreted by me:: lab results and radiology exam(s) Lab and/or radiology exams considered but not ordered:: None Interpretation Summary: As noted above Medications / Prescriptions Medications or Prescriptions considered but not ordered:: None Medication administrations:: None Consultations Consultation(s) initiated? (list below): No Diagnosis Recheck Differential Diagnosis: other (anemia, weakness, encounter for abnormal labs ) Most likely diagnosis given after review of the tests above:: Anemia Comfort measures only status Admission Indicated Admission indicated?: not indicated Admission Request Was there a request for admission?: No Disposition Plan Disposition Plan: Discharge Discharge Attestation Discharge Attestation: The patient and all family members were given an opportunity to ask questions and understood the discharge instructions. Discharge instructions specifically effects, indications for sooner follow up or return to the emergency department, and the expected course of current diagnosis. Patient condition: Stable Discharge Plan Plan Patient Disposition: HOME (Self Care) Patient condition on transfer: Benefits outweigh risks Prescriptions/Referrals Prescriptions/Med Rec: No Action risperidone 3 mg Tablet 6 mg PO HS clonazepam 2 mg Tablet 2 mg PO BID PRN (Reason: FOR SEVERE ANXIETY) levothyroxine 25 mcg tablet 25 mcg PO DAILY Rx Instructions: TAKE ON AN EMPTY STOMACH levetiracetam [Roweepra] 500 mg tablet 500 mg PO BID Qty: 60 0RF prednisone 50 mg tablet 50 mg PO QDAY Qty: 3 0RF albuterol sulfate 90 mcg/actuation HFA aerosol inhaler 2 puff inhalation Q6H PRN (Reason: shortness of breath or wheezing) Qty: 8.5 0RF cefdinir 300 mg capsule 300 mg PO BID Qty: 14 0RF levothyroxine [Synthroid] 50 mcg tablet 50 mcg PO QDAY Qty: 90 0RF Problem List Clinical Impression: Anemia, Comfort measures only status, Adult failure to thrive Patient/Caregiver Discharge Instructions Education Materials: What Is Palliative Care? Additional Instructions: Note for Meenakshi LOGAN: Ensure that you discuss with Adalberto's PCP to fill out an advanced directive to document clearly that Adalberto Pardo is to receive COMFORT MEASURES only and is a DNR (do not resuscitate). Print Language: [place] Stand Alone Forms: [employer] Award Info., Patient Portal Info Letter
[2025-07-16 11:30] VITALS: BMI 14.8
[2025-07-16 12:04] LABS: Basophils # (Auto) 0.1 Thou/mm3 (0.0-0.2); Basophils % (Auto) 1 % (0-2.5); Eosinophils # (Auto) 0.4 Thou/mm3 (0.0-0.5); Eosinophils % (Auto) 4 % (0-10); Hematocrit 26.1 % (41.0-53.0); Immature Granulocytes Auto 0.04 Thou/mm3 (0.00-0.00); Lymphocytes # (Auto) 2.2 Thou/mm3 (1.0-4.8); Lymphocytes % (Auto) 23 % (10-50); Mean Corpuscular HGB Conc 30.3 g/dl (31.0-37.0); Mean Corpuscular Hemoglobin 29.3 pg (25.0-35.0); Mean Corpuscular Volume 97 fL (80-100); Monocytes # (Auto) 0.3 Thou/mm3 (0.0-0.8); Monocytes % (Auto) 3 % (0-12); Neutrophils # (Auto) 6.8 Thou/mm3 (1.8-7.7); Neutrophils % (Auto) 69 % (37-80); Nucleated Red Blood Cell # 0.00 Thou/mm3 (0.00-0.00); Nucleated Red Blood Cell % 0 /100 WBC (0); Platelet Count 707 Thou/mm3 (140-440); RDW Standard Deviation 57.2 fL (35.1-43.9); Red Blood Count 2.70 Miln/mm3 (4.50-5.90); White Blood Count 9.7 Thou/mm3 (3.8-10.6)
[2025-07-16 12:12] LABS: Hemoglobin 7.9 g/dL (13.5-16.0)
[2025-07-16 12:18] LABS: Alanine Aminotransferase 15 U/L (10-49); Albumin, Serum 3.8 gm/dL (3.4-4.8); Albumin/Globulin Ratio 1.0 (1.2-2.2); Alkaline Phosphatase 102 U/L (46-116); Anion Gap 11 (7-16); Aspartate Amino Transferase 17 U/L (0-34); BUN/Creatinine Ratio 34 Ratio (12-20); Bilirubin,Total 0.3 mg/dL (0.3-1.2); Blood Urea Nitrogen 37 mg/dL (9-23); Calcium 9.3 mg/dL (8.3-10.6); Calcium (Corrected) 9.5 mg/dL (8.5-10.1); Carbon Dioxide 24.0 mMol/L (20.0-31.0); Chloride 113 mMol/L (98-107); Creatinine (Component) 1.1 mg/dL (0.6-1.3); Estimated Creatinine Clearance 29.6 mL/min (>60); Globulin 3.7 gm/dL (2.3-3.5); Glucose 80 mg/dL (74-106); Osmolality,Calculated 301 (275-295); Potassium 3.9 mMol/L (3.4-5.1); Sodium 148 mMol/L (136-145); Total Protein 7.5 gm/dL (5.7-8.2); eGFR > 60 See Note
[2025-07-16 14:38] VITALS: BP 97/47; PULSE 64; RESP 15; TEMP 36.3; O2SAT 99
--- NOTE | 2025-07-16 14:40 | PC.NURSE ---
pt is non verbal, appears to be resting in bed with eyes closed, chest rise and fall noted, no facial grimace appearing to not have any pain.
--- NOTE | 2025-07-16 15:24 | PC.CC ---
CRT Clarita, spoke with patient bedside regarding patient family wanting patient to return home with Hospice. CRT spoke with Meenakshi via phone regarding patient and wanting Hospice. Meenakshi reports that patient was establish with [facility] and would like them to continue with Hospice. CRT contacted [facility] and spoke Rajni: CRT contacted [facility] and was on the call for 51 minutes. Christine SIMPSON retail department supervisor signed the BIBI Patient will be d/c at 17:00 from the ER to home with Hospice. WILBERTO Parks left message for Rajni with Martha and updated Darya. WILBERTO Parks spoke with Meenakshi and informed her of the discharge plan.
[2025-07-16 15:45] VITALS: BP 122/58; PULSE 65; RESP 16; TEMP 36.5; O2SAT 100
--- NOTE | 2025-07-16 16:58 | PC.NURSE ---
Pt leaving via ambulance home, Pt IV dc'd, EMS report given. Pt last seen [facility], [facility] 14
[2025-07-16 17:00] VITALS: BP 103/76; PULSE 62; RESP 13; TEMP 36.4; O2SAT 100
--- NOTE | 2025-07-16 17:13 | PC.NURSE ---
EMS left pt home medications. Left voicemail with contact center representative on patient's chart. Will leave pt's belongings at nurses station labled with pt's sticker.
== END 2025-07-16 17:16 | disposition home or self-care (01) ==
LOC: SERX 14:13
PROVIDERS: Emergency Provider Family Medicine; PCP Physician Assistant
DX: D64.9 Anemia, unspecified (principal); R62.7 Adult failure to thrive; Z51.5 Encounter for palliative care
CPT/HCPCS: 36415; 80053; 85025; 86850; 86900; 86901; 99282

== ENCOUNTER 2025-07-17 17:29 | Emergency (ER) | payer MEDICARE, MEDICAID, SELFPAY ==
[2025-07-17 17:55] VITALS: BP 95/64; PULSE 91; RESP 18; TEMP 36.7; O2SAT 99
--- NOTE | 2025-07-17 18:02 | XR_ITS ---
Examination: CT brain head without contrast. 2-D sagittal coronal reconstructions Date and time of exam: July 17, 2025, 1938 hours, comparison 04/04/2025 INDICATIONS: Ground-level fall today with injury to the head, head pain CTDI: vol (mGy): 47.6 DLP: (mGycm): 965 Technique: Multiple CT axial sections of the brain have been obtained, 5 mm slice thickness. Contrast has not been administered. 2-D sagittal, coronal reconstructions have been obtained Low dose protocols were performed. One or more of the following dose reduction techniques were used; automated exposure control, adjustment of the mA and/or KV according to patient size, use of iterative reconstruction technique. Findings: No significant ventricular enlargement. Intra-axial or extra-axial hemorrhage density is not seen. No mass effect or midline shift Basal cisterns are not remarkable. Fourth ventricle is midline. Cranial vault intact. Impression: Negative for acute hemorrhage, mass effect or midline shift
--- NOTE | 2025-07-17 18:02 | EKG_ITS ---
[facility] Test Date: 2025-07-17 Pat Name: MARCELINA HERNANDEZ Department: Room: - Gender: Male Forest Ranger: : 1950 Requested By: Chong Silva Order Number: [id number] Reading MD: Chong Silva Measurements Intervals [place] Rate: 92 P: 80 NE: 104 QRS: 8 QRSD: 86 T: 71 QT: 342 QTc: 423 Interpretive Statements SINUS RHYTHM WITH SHORT NE INTERVAL Compared to ECG 04/04/2025 19:09:58 T-wave abnormality no longer present /store/S0/[id number]/[id number].pdf
--- NOTE | 2025-07-17 18:03 | PD.EDRME ---
Rapid Medical Screening Exam RME Arrival date/time: 07/17/25 17:29 This is a case of 74-year-old female who was brought by the son medical history adult failure to thrive anemia pneumonia acute dehydration acute hypernatremia acute kidney intervention came in in the emergency room with multiple symptoms patient initially came with clogged Jin catheter patient was seen by the PCP and was sent here for admission for failure to thrive anemia and dehydration patient also hit his head on a corner of the cabinet and sustained a laceration on the scalp no loss of conscious Chief Complaint: Urogenital-Male Time Seen by Provider: 07/17/25 18:01 Vital signs: Vital Signs Temperature 98.1 F 07/17/25 17:55 Pulse Rate 91 07/17/25 17:55 Respiratory Rate 18 07/17/25 17:55 Blood Pressure 95/64 07/17/25 17:55 Pulse Oximetry (%) 99 07/17/25 17:55 Oxygen Delivery Method Room Air 07/17/25 17:55 Exam: Patient noted to have scalp laceration on the scalp frontal area mild dehydration abdomen soft no guarding no rebound no rigidity Clinical Impression: Head injury scalp laceration failure to thrive
[2025-07-17 18:56] LABS: Basophils # (Auto) 0.1 Thou/mm3 (0.0-0.2); Basophils % (Auto) 1 % (0-2.5); Eosinophils # (Auto) 0.2 Thou/mm3 (0.0-0.5); Eosinophils % (Auto) 2 % (0-10); Hematocrit 31.1 % (41.0-53.0); Hemoglobin 9.7 g/dL (13.5-16.0); Immature Granulocytes Auto 0.03 Thou/mm3 (0.00-0.00); Lymphocytes # (Auto) 1.8 Thou/mm3 (1.0-4.8); Lymphocytes % (Auto) 18 % (10-50); Mean Corpuscular HGB Conc 31.2 g/dl (31.0-37.0); Mean Corpuscular Hemoglobin 29.5 pg (25.0-35.0); Mean Corpuscular Volume 95 fL (80-100); Monocytes # (Auto) 0.6 Thou/mm3 (0.0-0.8); Monocytes % (Auto) 6 % (0-12); Neutrophils # (Auto) 7.7 Thou/mm3 (1.8-7.7); Neutrophils % (Auto) 74 % (37-80); Nucleated Red Blood Cell # 0.00 Thou/mm3 (0.00-0.00); Nucleated Red Blood Cell % 0 /100 WBC (0); Platelet Count 595 Thou/mm3 (140-440); RDW Standard Deviation 55.9 fL (35.1-43.9); Red Blood Count 3.29 Miln/mm3 (4.50-5.90); White Blood Count 10.4 Thou/mm3 (3.8-10.6)
[2025-07-17 19:12] LABS: Alanine Aminotransferase 14 U/L (10-49); Albumin, Serum 4.1 gm/dL (3.4-4.8); Albumin/Globulin Ratio 1.1 (1.2-2.2); Alkaline Phosphatase 111 U/L (46-116); Anion Gap 12 (7-16); Aspartate Amino Transferase 20 U/L (0-34); BUN/Creatinine Ratio 24 Ratio (12-20); Bilirubin,Total 0.3 mg/dL (0.3-1.2); Blood Urea Nitrogen 29 mg/dL (9-23); Calcium 9.8 mg/dL (8.3-10.6); Calcium (Corrected) 9.8 mg/dL (8.5-10.1); Carbon Dioxide 21.6 mMol/L (20.0-31.0); Chloride 114 mMol/L (98-107); Creatinine (Component) 1.2 mg/dL (0.6-1.3); Globulin 3.7 gm/dL (2.3-3.5); Glucose 90 mg/dL (74-106); Osmolality,Calculated 300 (275-295); Potassium 4.6 mMol/L (3.4-5.1); Sodium 148 mMol/L (136-145); Total Protein 7.8 gm/dL (5.7-8.2); Troponin I < 0.020 ng/mL (0.0-0.045); eGFR > 60 See Note
[2025-07-17 19:30] LABS: B-Type Natriuretic Peptide 25 pg/mL (0-100)
[2025-07-17 20:10] VITALS: BP 121/70; PULSE 91; RESP 18; O2SAT 98
--- NOTE | 2025-07-17 20:23 | EDNOTE_ITS ---
ED General RME/HPI General Chief complaint: Urogenital-Male Stated complaint: CATHETAR PLUGGED, FALL,PMD SENT TO BE ADMITTED Time Seen by Provider: 07/17/25 18:01 Arrival date/time: 07/17/25 17:29 CC: Fall this afternoon out of the bed after climbing over a rail assuming to get to an bottle of water. The patient is cachectic deconditioned and contracted. Family member at bedside. Patient is essentially nonverbal with minimal movement RME / HPI RME / HPI narrative: 07/17/25 17:29 This is a case of 74-year-old female who was brought by the son medical history adult failure to thrive anemia pneumonia acute dehydration acute hypernatremia acute kidney intervention came in in the emergency room with multiple symptoms patient initially came with clogged Jin catheter patient was seen by the PCP and was sent here for admission for failure to thrive anemia and dehydration patient also hit his head on a corner of the cabinet and sustained a laceration on the scalp no loss of conscious Exam: Patient noted to have scalp laceration on the scalp frontal area mild dehydration abdomen soft no guarding no rebound no rigidity Impression: Head injury scalp laceration failure to thrive Related Data Home Medications ?Medication ?Instructions ?Recorded ?Confirmed clonazepam 2 mg tablet 2 mg PO BID PRN FOR SEVERE A NXIETY 07/18/21 01/13/22 levothyroxine 25 mcg tablet 25 mcg PO DAILY 07/18/21 0 01/13/22 risperidone 3 mg tablet 6 mg PO HS 07/18/21 01/13/22 Previous Rx's ?Medication ?Instructions ?Recorded levetiracetam 500 mg tablet 500 mg PO BID #60 tabs (Roweepra) albuterol sulfate 90 mcg/actuation 2 puff inhalation Q 6H PRN 04/05/25 aerosol inhaler shortness of breath or wheez ing #8.5 grams cefdinir 300 mg capsule 300 mg PO BID #14 caps 04/05 levothyroxine 50 mcg tablet 50 mcg PO QDAY #90 tabs (Synthroid) prednisone 50 mg tablet 50 mg PO QDAY #3 tabs ciprofloxacin HCl 500 mg tablet 500 mg PO BID #14 tabs 07/17/25 (Cipro) Allergies Allergy/AdvReac Type Severity Reaction Status Date / Time lithium Allergy Verified 07/17/25 17:33 Review of Systems Review of Systems ROS Unobtainable: unobtainable due to mental status Past Medical History Past Medical History NEUROLOGIC: Positive Seizures CARDIAC: Negative Congestive Heart Failure RESPIRATORY: Negative Chronic Obstructive Pulmonary Disease (COPD) GASTROINTESTINAL: Positive Gastroesophageal Reflux Disease GENITOURINARY: Negative Renal Disease ENDOCRINE: Positive Hypothyroidism; Negative Diabetes Mellitus Type 1 or Diabetes Mellitus Type 2 HEMATOLOGIC: Positive Anemia PSYCHO/SOCIAL: Positive Schizophrenia and Anxiety OTHER HISTORY: Positive Developmental Delay Social History SMOKING STATUS: Never smoker ED Exam Narrative Physical exam: [General: Thin, deconditioned and contracted, appears not in any acute distress Head normocephalic, crusted blood to the scalp along the very top, no depressions or hematomas appreciated. HEENT: Face: Sunken eyes, EOMs are intact no entrapment mouth dry pale membranes with mouth open. No facial asymmetry or bogginess no ecchymosis to the face. No raccoon's eyes or jama signs although sepsis of HEENT are within acceptable limits Neck is nontender, no edema Chest equal chest rise nontender to palpation Respiratory: Clear to auscultation no wheezes crackles or rubs CV: Rate rhythm is regular no murmurs rubs or clicks Abdomen is soft nontender no masses positive bowel sounds all 4 quadrants Back: No CVA tenderness no spinous process tenderness from cervical spine thoracic and lumbar spine Skin: Semilunar skin tear to the right anterior chest to the left hand over the fourth MCP. To the right hand dorsum. Otherwise skin is intact no petechiae rash induration ulceration or crepitus Extremities: Contracted upper extremities as well as lower extremities. Cap refill in the digits less than 2 seconds. Neuro: Awake alert oriented x1, self, Course Quality Measures none Orders Category Date Time Status EKG (ED ONLY) *Do not use* NOW Care 07/17/25 18:02 Completed Jin [Urinary Catheter] QS Care 07/17/25 20:14 Completed Insert IV NOW Care 07/17/25 21:[address] head/brain wo con Stat Exams 07/17/25 18:02 Completed EKG (ED Only) Stat Exams 07/17/25 18:02 Draft BNP [B-Type Natriuretic Peptide] Stat Lab 07/17/25 18:23 Completed CBC Stat Lab 07/17/25 18:23 Completed CMP [Comprehensive Metabolic Panel] Stat Lab 07/17/25 18:23 Completed Troponin I Stat Lab 07/17/25 18:23 Completed Urinalysis Stat Lab 07/17/25 22:40 Completed Sodium Chloride 0.9% 1000 ml [Ns] 1,000 ml Med 07/17/25 21:56 Discontinued IV 999 mls/hr TET,DIP/PERT AC (Adult)-Tdap [Boostrix Adult (Tdap) Med 07/17/25 20:14 Discontinued Vacc] 0.5 ml IMI .ONCE ONE cefTRIAXone/D5w 1gm IV premix [Rocephin/D5w 1gm IV Med 07/17/25 23:12 Discontinued premix] 1 gm in 50 ml IV X1 Vital Signs Vital signs: Vital Signs Temperature 98.1 F 07/17/25 17:55 Pulse Rate 91 07/17/25 17:55 Respiratory Rate 18 07/17/25 17:55 Blood Pressure 95/64 07/17/25 17:55 Pulse Oximetry (%) 99 07/17/25 17:55 Oxygen Delivery Method Room Air 07/17/25 17:55 PROCEDURES: Procedure Comment Laceration repair, anesthesia 1% lidocaine without epinephrine 4 mL injected the local site the site was cleaned and probed no foreign body was found this is a 8 cm semilunar flap avulsion of the scalp center top. Site was probed no foreign body was found site was approximated with 4 interrupted sutures of 4-0 Ethilon with good approximation without complication patient tolerated the procedure well. Dressing was applied. Patient has right hand fourth MCP laceration approximated with Steri-Strips, and a 2 cm semilunar avulsion to the center chest that was approximated with Steri- Strips without complication. No dressing was applied to either of these. Discharge Plan Plan Patient Disposition: HOME (Self Care) Prescriptions/Referrals Prescriptions/Med Rec: New ciprofloxacin HCl [Cipro] 500 mg tablet 500 mg PO BID Qty: 14 0RF No Action risperidone 3 mg Tablet 6 mg PO HS clonazepam 2 mg Tablet 2 mg PO BID PRN (Reason: FOR SEVERE ANXIETY) levothyroxine 25 mcg tablet 25 mcg PO DAILY Rx Instructions: TAKE ON AN EMPTY STOMACH levetiracetam [Roweepra] 500 mg tablet 500 mg PO BID Qty: 60 0RF prednisone 50 mg tablet 50 mg PO QDAY Qty: 3 0RF albuterol sulfate 90 mcg/actuation HFA aerosol inhaler 2 puff inhalation Q6H PRN (Reason: shortness of breath or wheezing) Qty: 8.5 0RF cefdinir 300 mg capsule 300 mg PO BID Qty: 14 0RF levothyroxine [Synthroid] 50 mcg tablet 50 mcg PO QDAY Qty: 90 0RF Referrals: Martir Palumbo PA-C [Primary Care Provider] - In 1 week Problem List Clinical Impression: Fall from ground level, Laceration of scalp, Laceration of chest, Hand laceration, UTI (urinary tract infection), Urinary catheter (Jin) change required Patient/Caregiver Discharge Instructions Other Activity Instructions:: Take the medications prescribed until completely gone encourage lots of fluids. Education Materials: ED Fall with Uncertain Cause, ED Laceration, Hand: All Closures, ED Laceration, Trunk: All Closures, ED Bladder Infection, Male (Adult) Additional Instructions: Keep the sites clean and dry, sutures out in 7 to 10 days. Print Language: Montenegrin Stand Alone Forms: [employer] Award Info., Patient Portal Info Letter ZEB/SIMON Supervising Physician FREDI Supervising Physician: Porfirio Young ENP [facility] Clinical Information Provided by: patient Medical Records reviewed [facility] Meds/Rx considered, not ordered None Labs/Rad/Tests considered, not ordered None Chronic Illness/Social Conditions which may negatively complicate care or outcome(s)-explain: None or not applicable EKG Interpretation EKG #1: EKG Interpretation: EKG performed at 1812 shows a ventricular rate of 92 PA interval 104 QRS of 86 and QTc of 391 is sinus rhythm with short PA interval there is significant baseline artifact. Labs Labs: interpreted by id Lab(s) Interpretation(s): CBC shows no leukocytosis H&H of 9.7 and hematocrit of 31.1. Platelets are 595. CMP shows sodium 148 potassium of 4.6 chloride of 114 CO2 of 21.6 gap of 12 BUN of 29 creatinine of 1.2. Glucose is 90. No transaminitis or T. bili elevation Troponin is negative BNP is negative. Urine is positive for UTI. Medication Administration(s) Medication Administration History Discontinued Medications Diphtheria/Tetanus/Acell Pertussis (Diphth,Pertuss(Acell),Tet Vac 0.5 Ml Syr- Adult) 0.5 ml IMi .ONCE ONE Stop: 07/17/25 20:15 Last Admin: 07/17/25 21:11 Dose: 0.5 ml Documented By: ADRIA Sodium Chloride (Ns) 1,000 mls @ 999 mls/hr IV .Q1H1M ONE Stop: 07/17/25 22:56 Last Infusion: 07/17/25 23:17 Dose: Infused Documented By: Admin: 07/17/25 22:01 Dose: 999 mls/hr Documented By: ADRIA Ceftriaxone Sodium/Dextrose (Rocephin/D5w 1gm Iv Premix) 1 gm in 50 mls @ 100 mls/hr IV X1 ONE Stop: 07/17/25 23:41 Last Infusion: 07/18/25 00:10 Dose: Infused Documented By: Admin: 07/17/25 23:21 Dose: 100 mls/hr Documented By: ADRIA
[2025-07-17 20:41] VITALS: BP 115/64; PULSE 89; RESP 17; TEMP 36.7; O2SAT 99
[2025-07-17] MEDS: DIPHTH,PERTUSS(ACELL),TET VAC 0.5 ML SYR- ADULT IMi (21:11)
[2025-07-17] MEDS: SODIUM CHLORIDE 0.9% 1000 ML 1,000 ML 999 ML IV (22:01)
[2025-07-17 22:30] VITALS: BP 133/70; PULSE 83; RESP 17; O2SAT 99
[2025-07-17 22:43] LABS: Collection Type, Urine Voided
[2025-07-17 22:58] LABS: Amorphous Crystals,Urine Present (Absent); Bacteria,Urine 1+; Bilirubin,Urine Negative (Negative); Blood,Urine 3+ (Negative); Glucose, Urine Negative (Negative); Ketones,Urine Trace (Negative); Leukocyte Esterase,Urine Positive (Negative); Nitrite,Urine Positive (Negative); PH,Urine 6.5 (5.0-7.0); Protein,Urine 1+ (Neg - Trace); RBC,Urine 2754 /hpf (0-3); Specific Gravity,Urine 1.018 (1.001-1.035); Squamous Epithelial Cell,Urine 2 /hpf (0-5); Urobilinogen,Urine Negative mg/dL (0.0-1.0); WBC,Urine 566 /hpf (0-5)
[2025-07-17 23:06] LABS: Clarity,Urine Turbid (Clear/Hazy); Color,Urine Orange (Lt Yel-Yel)
[2025-07-17] MEDS: cefTRIAXone/D5w 1gm IV premix 1 GM/50 ML BAG IV (23:21)
[2025-07-18 00:28] VITALS: BP 116/64; PULSE 86; RESP 17; O2SAT 100
== END 2025-07-18 00:30 | disposition home or self-care (01) ==
PROVIDERS: Nurse Practitioner Family; Emergency Provider Emergency Medicine; PCP Physician Assistant
DX: N39.0 Urinary tract infection, site not specified (principal); S01.01XA Laceration without foreign body of scalp, initial encounter; W19.XXXA Unspecified fall, initial encounter; Z46.6 Encounter for fitting and adjustment of urinary device
CPT/HCPCS: 12004; 36415; 51702; 70450; 80053; 81001; 83880; 84484; 85025; 90471; 90715; 93005; 96361; 96365; 99284; A4314; J0696; J7030

== ENCOUNTER → 2025-07-24 | Outpatient (CLI) | payer MEDICARE, MEDICAID, SELFPAY | END | disposition home or self-care (01) | LOC: SWHD 13:16 | PROVIDERS: PCP Physician Assistant; Referring Provider Physician Assistant; Visit Provider Student in an Organized Health Care Education/Training Program | DX: L89.154 Pressure ulcer of sacral region, stage 4 (principal); L89.224 Pressure ulcer of left hip, stage 4; S61.401A Unspecified open wound of right hand, initial encounter; S01.90XA Unspecified open wound of unspecified part of head, initial encounter; X58.XXXA Exposure to other specified factors, initial encounter; D64.9 Anemia, unspecified; L21.9 Seborrheic dermatitis, unspecified; K22.89 Other specified disease of esophagus; R56.9 Unspecified convulsions; F41.9 Anxiety disorder, unspecified; R62.7 Adult failure to thrive; M86.68 Other chronic osteomyelitis, other site; E03.9 Hypothyroidism, unspecified; F99 Mental disorder, not otherwise specified; F20.9 Schizophrenia, unspecified; E46 Unspecified protein-calorie malnutrition | CPT/HCPCS: 97597; A9270 ==